=== PATIENT | female | born 1950 | race Caucasian/White ===

== ENCOUNTER 2016-08-09 12:01 | Outpatient (CLI) | payer MEDICARE, OTHER | END 2016-08-09 12:02 | disposition home or self-care (01) | DX: I10 Essential (primary) hypertension (principal); R73.01 Impaired fasting glucose; E03.9 Hypothyroidism, unspecified ==

== ENCOUNTER 2016-09-27 15:19 | Outpatient (CLI) | payer MEDICARE, OTHER | END 2016-09-27 15:20 | disposition home or self-care (01) | DX: Z12.31 Encounter for screening mammogram for malignant neoplasm of breast (principal) ==

== ENCOUNTER 2016-10-13 13:59 | Outpatient (CLI) | payer MEDICARE, OTHER | END 2016-10-13 14:00 | disposition home or self-care (01) | DX: Z12.2 Encounter for screening for malignant neoplasm of respiratory organs (principal); R91.8 Other nonspecific abnormal finding of lung field; Z87.891 Personal history of nicotine dependence ==

== ENCOUNTER 2016-10-27 09:46 | Outpatient (CLI) | payer MEDICARE, OTHER | END 2016-10-27 09:47 | disposition home or self-care (01) | DX: R30.0 Dysuria (principal) ==

== ENCOUNTER 2016-10-31 13:16 | Outpatient (CLI) | payer MEDICARE, OTHER ==
[2016-10-31] MEDS ORDERED: ALBUTEROL NEB 2.5 MG/3 ML INH ONE (13:22)
== END 2016-10-31 13:17 | disposition home or self-care (01) ==
DX: R91.1 Solitary pulmonary nodule (principal); J43.2 Centrilobular emphysema
CPT/HCPCS: 94060; J7613

== ENCOUNTER 2016-11-24 17:18 | Outpatient (CLI) | payer MEDICARE, OTHER | END 2016-11-24 17:19 | disposition home or self-care (01) | DX: Z01.812 Encounter for preprocedural laboratory examination (principal) ==

== ENCOUNTER 2017-05-23 08:00 | Outpatient (CLI) | payer MEDICARE, OTHER | END 2017-05-23 08:01 | disposition home or self-care (01) | LOC: LAB.WCP 08:00 | PROVIDERS: ATTEND Family Medicine | DX: R30.0 Dysuria (principal) | CPT/HCPCS: 87086 ==

== ENCOUNTER 2017-10-17 10:20 | Outpatient (CLI) | payer MEDICARE, OTHER ==
[2017-10-17 11:17] LABS: BASOPHILS # (AUTO) 0.1 10^3/uL (0.0-0.1); BASOPHILS % (AUTO) 0.7 %; EOSINOPHILS # (AUTO) 0.2 10^3/uL (0.0-0.7); EOSINOPHILS % (AUTO) 2.3 %; HGB - HEMOGLOBIN 14.2 g/dL (12.0-16.0); LYMPHOCYTES # (AUTO) 1.8 10^3/uL (1.5-3.5); LYMPHOCYTES % (AUTO) 22.9 %; MEAN CORPUSCULAR HEMOGLOBIN 30.1 pg (27.0-31.0); MEAN CORPUSCULAR HGB CONC 34.4 g/dL (32.0-36.0); MEAN CORPUSCULAR VOLUME 87.4 fL (81.0-99.0); MEAN PLATELET VOLUME 9.3 fL (7.9-10.8); MONOCYTES # (AUTO) 0.6 10^3/uL (0.0-1.0); MONOCYTES % (AUTO) 8.2 %; NEUTROPHILS # (AUTO) 5.2 10^3/uL (1.5-6.6); NEUTROPHILS % (AUTO) 65.9 %; PLT - PLATELET COUNT 197 10^3/uL (130-450); RED BLOOD COUNT 4.72 10^6/uL (4.20-5.40); RED CELL DISTRIBUTION WIDTH 12.9 % (12.0-15.0); WHITE BLOOD COUNT 7.9 x10^3/uL (4.8-10.8)
[2017-10-17 11:20] LABS: BILIRUBIN,URINE NEGATIVE (NEGATIVE); GLUCOSE, URINE (UA) NEGATIVE (NEGATIVE); KETONES,URINE (UA) NEGATIVE (NEGATIVE); LEUKOCYTE ESTERASE, URINE NEGATIVE (NEGATIVE); NITRITE,URINE NEGATIVE (NEGATIVE); OCCULT BLOOD,URINE NEGATIVE (NEGATIVE); PROTEIN,URINE NEGATIVE (NEGATIVE); UROBILINOGEN,URINE 0.2 (NORMAL) E.U./dL (NORMAL)
[2017-10-17 11:27] LABS: CLARITY,URINE HAZY (CLEAR)
[2017-10-17 11:28] LABS: BACTERIA,URINE Many /HPF (None Seen); RBC,URINE 0-5 /HPF (0-5); SQUAMOUS EPITHELIAL CELL,UR RARE Squamous (<= Few)
[2017-10-17 11:30] LABS: ALBUMIN/GLOBULIN RATIO 1.4 (1.0-2.2); ALKALINE PHOSPHATASE 61 IU/L (42-121); ALT ALANINE AMINOTRANSFERASE 25 IU/L (10-60); AST ASPARTATE AMINOTRANSFERASE 26 IU/L (10-42); BILIRUBIN,TOTAL 0.6 mg/dL (0.2-1.0); BUN - BLOOD UREA NITROGEN 22 mg/dL (6-20); CALCIUM 8.7 mg/dL (8.5-10.3); CARBON DIOXIDE - CO2 25 mmol/L (21-32); CHLORIDE 104 mmol/L (101-111); CHOL/HDL RATIO 4.6 (<4.4); CHOLESTEROL 148 mg/dL; CREATININE 0.9 mg/dL (0.4-1.0); GFR - MDRD 63 (>89); GLUCOSE 110 mg/dL (70-100); HDL CHOLESTEROL 32 mg/dL; LDL CHOLESTEROL,CALCULATED 83 mg/dL; LDL/HDL RATIO 2.6 (<4.4); SODIUM 138 mmol/L (135-145); TOTAL PROTEIN 6.8 g/dL (6.7-8.2); VLDL CHOLESTEROL 33 mg/dL
[2017-10-17 11:42] LABS: HB2 TOTAL 15.2 g/dL; HEMOGLOBIN A1C 0.54 g/dL; HEMOGLOBIN A1C % 5.4 % (4.6-6.2)
== END 2017-10-17 10:21 | disposition home or self-care (01) ==
LOC: LAB 10:20
PROVIDERS: ATTEND Family Medicine
DX: I10 Essential (primary) hypertension (principal); E78.5 Hyperlipidemia, unspecified; R73.01 Impaired fasting glucose; E03.9 Hypothyroidism, unspecified
CPT/HCPCS: 36415; 80053; 80061; 81001; 83036; 83721; 84443; 85025

== ENCOUNTER 2017-10-18 12:54 | Outpatient (CLI) | payer MEDICARE, OTHER ==
--- NOTE | 2017-10-19 15:02 | Mammography Report ---
DIGITAL SCREENING MAMMOGRAM: 10/18/2017 CLINICAL INDICATION: A 66-year-old nulliparous patient for screening. COMPARISON: 09/2016, 09/2014, 07/2013, 06/2012, 06/2011, 04/2010. TECHNIQUE: Routine CC and MLO projections were obtained of the breasts. FINDINGS: The breasts again demonstrate heterogeneously dense fibroglandular parenchyma bilaterally. Coarse and punctate, typically benign calcifications are present. No suspicious masses, clustered microcalcifications, or regions of architectural distortion are identified. IMPRESSION: BENIGN FINDINGS. RECOMMENDATION: Routine annual screening unless otherwise clinically indicated. BIRADS CATEGORY 2 - BENIGN FINDINGS. STANDARD QUALIFYING STATEMENTS: 1. This examination was reviewed with the aid of Computer-Aided Detection (CAD). 2. A negative or benign imaging report should not delay biopsy if clinically suspicious findings are present. Consider surgical consultation if warranted. More than 5% of cancers are not identified by imaging. 3. Dense breasts may obscure an underlying neoplasm. TD: 10/19/2017 15:01
== END 2017-10-18 12:55 | disposition home or self-care (01) ==
LOC: DI 12:54
PROVIDERS: ATTEND Family Medicine
DX: Z12.31 Encounter for screening mammogram for malignant neoplasm of breast (principal)
CPT/HCPCS: 77067

== ENCOUNTER 2017-11-16 17:37 | Outpatient (CLI) | payer MEDICARE, OTHER ==
[2017-11-16 18:01] LABS: CALCIUM 9.1 mg/dL (8.5-10.3); CREATININE 1.1 mg/dL (0.4-1.0)
== END 2017-11-16 17:38 | disposition home or self-care (01) ==
LOC: LAB 17:37
PROVIDERS: ATTEND Family Medicine
DX: I10 Essential (primary) hypertension (principal)
CPT/HCPCS: 36415; 80048

== ENCOUNTER 2018-04-14 12:31 | Outpatient (CLI) | payer MEDICARE, OTHER ==
[2018-04-14 13:12] LABS: CALCIUM 9.2 mg/dL (8.5-10.3); CREATININE 1.1 mg/dL (0.4-1.0)
== END 2018-04-14 12:32 | disposition home or self-care (01) ==
LOC: LAB 12:31
PROVIDERS: ATTEND Family Medicine
DX: I10 Essential (primary) hypertension (principal)
CPT/HCPCS: 36415; 80048

== ENCOUNTER 2018-09-30 12:58 | Emergency (ER) | payer MEDICARE, OTHER ==
--- NOTE | 2018-09-30 15:03 | ED Physician Documentation ---
PD HPI URI - Stated complaint Stated Complaint: SOA - Chief complaint Chief Complaint: Resp - History obtained from History obtained from: Patient - History of Present Illness Timing - onset: How many days ago (several days of fever and aches, nausea, and worsening cough and wheezing.) Timing details: Gradual onset, Still present Associated symptoms: Fever, Chills, Nasal congestion, Productive cough, Dyspnea. No: NVD, Bilateral edema Contributing factors: COPD / asthma. No: Sick contact Similar symptoms before: Has not had sx before Recently seen: Not recently seen Review of Systems Constitutional: reports: Fever, Chills, Myalgias Nose: reports: Congestion Throat: denies: Sore throat Cardiac: denies: Chest pain / pressure Respiratory: reports: Dyspnea, Cough, Wheezing Skin: denies: Rash, Lesions Neurologic: reports: Generalized weakness, Headache. denies: Near syncope, Alte red mental status PD PAST MEDICAL HISTORY - Past Medical History Cardiovascular: Hypertension, High cholesterol Respiratory: Emphysema, Sleep apnea, CPAP use Endocrine/Autoimmune: HyPOthyroidism GI: GERD : Incontinence, Kidney stones HEENT: None Psych: None Musculoskeletal: None Derm: None - Past Surgical History General: Colonoscopy Ortho: Other - Present Medications Home Medications: Ambulatory Orders Medication Instructions Recorded Confirmed Aclidinium [place] [Tudorza 1 puffs INH BID 11/18/14 11/18/14 [place]] Ascorbic Acid [Vitamin C] 1 tab PO BID 11/18/14 11/18/14 Aspirin 81 mg PO DAILY 11/18/14 11/18/14 Atenolol 1 tab PO BID 11/18/14 11/18/14 Atorvastatin Calcium [Lipitor] 1 tab PO DAILY 11/18/14 11/18/14 Budesonide/Formoterol Fumarate 2 puffs INH BID 11/18/14 11/18/14 [Symbicort 160-4.5 Mcg Inhaler] Cholecalciferol (Vitamin D3) 1 tab PO DAILY 11/18/14 11/18/14 [Vitamin D] Evening [place] Oil [Evening 1 tab PO DAILY 11/18/14 11/18/14 [place]] Garlic 1 tab PO DAILY 11/18/14 11/18/14 Ginkgo Biloba 1 tab PO DAILY 11/18/14 11/18/14 Krill/[place]-3/Dha/Epa/Lipids 1 tab PO DAILY 11/18/14 11/18/14 [Krill Oil 300 mg Softgel] Levothyroxine [Synthroid] 1 tab PO DAILY 11/18/14 11/18/14 Lisinopril/Hydrochlorothiazide 1 tab PO DAILY 11/18/14 11/18/14 [Lisinopril-Hctz 10-12.5 mg Tab] Multivitamin [Multivitamins] 1 tab PO DAILY 11/18/14 11/18/14 Ubidecarenone [Coenzyme Q10] 1 tab PO DAILY 11/18/14 11/18/14 Vitamin B Complex Vit C No.4 1 tab PO DAILY 11/18/14 11/18/14 [Super B Complex] raNITIdine [Zantac] 1 tab PO BID 11/18/14 11/18/14 Albuterol 2.5 mg INH Q4H PRN #30 neb 09/30/18 Benzonatate [Tessalon Perle] 100 - 200 mg PO TID PRN #30 capsule 09/30/18 Dexamethasone [Decadron] 4 mg PO DAILY #5 tablet 09/30/18 Doxycycline Hyclate 100 mg PO BID #14 capsule 09/30/18 guaiFENesin/CODEINE [Robitussin AC] 10 ml PO Q6H #240 ml 09/30/18 - Allergies Allergies/Adverse Reactions: Allergies Allergy/AdvReac Type Severity Reaction Status Date / Time beclomethasone dipropionate * Allergy Unknown Verified 09/30/18 13:04 [From Qvar] ciprofloxacin [From Cipro] Allergy Unknown Verified 09/30/18 13:04 ciprofloxacin HCl * Allergy Unknown Verified 09/30/18 13:04 [From Cipro] metronidazole Allergy Unknown Verified 09/30/18 13:04 Sulfa (Sulfonamide Allergy Unknown Verified 09/30/18 13:04 Antibiotics) - Social History Does the pt smoke?: No Smoking Status: Never smoker - Immunizations Immunizations are current?: Yes PD ED PE NORMAL - Vitals Vital signs reviewed: Yes - General General: Alert and oriented X 3, No acute distress, Well developed/nourished - HEENT HEENT: Moist mucous membranes, Pharynx benign - Neck Neck: Supple, no meningeal sign, No adenopathy - Cardiac Cardiac: RRR, No murmur - Respiratory Respiratory: No: Clear bilaterally (wheezing diffusely, without coarse sounds peripherally, but bronchial congested sounds. ) - Abdomen Abdomen: Soft, Non tender - Derm Derm: Normal color, Warm and dry - Extremities Extremities: No tenderness to palpate, Normal ROM s pain, No edema, No calf tenderness / cord - Neuro Neuro: Alert and oriented X 3, No motor deficit, Normal speech Results - Vitals Vitals: Oxygen O2 Source Room air - Labs Labs: Laboratory Tests 09/30/18 13:00 Influenza A (Rapid) Negative Influenza B (Rapid) Negative PD MEDICAL DECISION MAKING - ED course Complexity details: considered differential (likely viral URI and exac asthma/COPD, but with that history, consider co-infection. ), d/w patient Departure - Departure Disposition: Home, Self Care Clinical Impression: Acute exacerbation of COPD with asthma Upper respiratory infection Qualifiers: URI type: unspecified URI Qualified Code(s): J06.9 - Acute upper respiratory infection, unspecified Condition: Stable Record reviewed to determine appropriate education?: Yes Instructions: ED URI Viral W Wheezing Follow-Up: Miryam Crabtree DO [Primary Care Provider] - Prescriptions: Albuterol 2.5 mg INH Q4H PRN #30 neb PRN Reason: Wheezing Benzonatate [Tessalon Perle] 100 - 200 mg PO TID PRN #30 capsule PRN Reason: Cough Dexamethasone [Decadron] 4 mg PO DAILY #5 tablet Doxycycline Hyclate 100 mg PO BID #14 capsule guaiFENesin/CODEINE [Robitussin AC] 10 ml PO Q6H #240 ml Comments: Use your nebulizer or inhalers at home 4 times a day for the next several days and extra times if needed. Add Decadron steroid for bronchial inflammation and this should help quite a bit over the next few days. Tessalon if needed for cough. Cough medicine if needed for cough and pains. Recheck if not improving over the next few days. If you do have increasing sputum production or fevers then consider at that point there may be bacterial rather than viral and could add the doxycycline antibiotic. Discharge Date/Time: 09/30/18 16:38
[2018-09-30] MEDS ORDERED: BENZONATATE 100 MG CAPSULE PO STA (15:30)
[2018-09-30] MEDS ORDERED: IPRATROPIUM/ALBUTEROL 3 ML NEB INH STA (15:30)
[2018-09-30] MEDS ORDERED: DEXAMETHASONE 10 MG/ML VIAL PO STA (15:30)
[2018-09-30] MEDS ORDERED: CHERRY SYRUP 10 ML UDC PO ONE (15:55)
[2018-09-30 16:39] VITALS: BP 119/72
== END 2018-09-30 16:38 | disposition home or self-care (01) ==
LOC: ED 12:58
DX: J44.1 Chronic obstructive pulmonary disease with (acute) exacerbation (principal); J06.9 Acute upper respiratory infection, unspecified; I10 Essential (primary) hypertension; E78.00 Pure hypercholesterolemia, unspecified; E03.9 Hypothyroidism, unspecified; Z79.82 Long term (current) use of aspirin
CPT/HCPCS: 87275; 87276; 94640; 99283; A9270

== ENCOUNTER 2019-02-05 11:20 | Outpatient (CLI) | payer MEDICARE, OTHER ==
[2019-02-05 12:23] LABS: BASOPHILS % (AUTO) 0.6 %; EOSINOPHILS # (AUTO) 0.1 10^3/uL (0.0-0.7); EOSINOPHILS % (AUTO) 1.8 %; HGB - HEMOGLOBIN 13.6 g/dL (12.0-16.0); LYMPHOCYTES # (AUTO) 1.4 10^3/uL (1.5-3.5); LYMPHOCYTES % (AUTO) 21.8 %; MEAN CORPUSCULAR HEMOGLOBIN 30.7 pg (27.0-31.0); MEAN CORPUSCULAR HGB CONC 33.5 g/dL (32.0-36.0); MEAN CORPUSCULAR VOLUME 91.6 fL (81.0-99.0); MONOCYTES # (AUTO) 0.5 10^3/uL (0.0-1.0); MONOCYTES % (AUTO) 7.8 %; NEUTROPHILS # (AUTO) 4.4 10^3/uL (1.5-6.6); NEUTROPHILS % (AUTO) 67.7 %; PLT - PLATELET COUNT 194 10^3/uL (130-450); RED BLOOD COUNT 4.43 10^6/uL (4.20-5.40); RED CELL DISTRIBUTION WIDTH 12.6 % (12.0-15.0); WHITE BLOOD COUNT 6.5 x10^3/uL (4.8-10.8)
[2019-02-05 12:38] LABS: ALBUMIN 4.1 g/dL (3.2-5.5); ALBUMIN/GLOBULIN RATIO 1.4 (1.0-2.2); ALKALINE PHOSPHATASE 59 IU/L (42-121); ALT ALANINE AMINOTRANSFERASE 25 IU/L (10-60); AST ASPARTATE AMINOTRANSFERASE 21 IU/L (10-42); BILIRUBIN,TOTAL 0.8 mg/dL (0.2-1.0); BUN - BLOOD UREA NITROGEN 24 mg/dL (6-20); CARBON DIOXIDE - CO2 25 mmol/L (21-32); CHLORIDE 103 mmol/L (101-111); CHOL/HDL RATIO 4.1 (<4.4); CHOLESTEROL 147 mg/dL; CREATININE 1.1 mg/dL (0.4-1.0); GFR - MDRD 49 (>89); GLUCOSE 112 mg/dL (70-100); HDL CHOLESTEROL 36 mg/dL; LDL CHOLESTEROL,CALCULATED 78 mg/dL; LDL/HDL RATIO 2.2 (<4.4); SODIUM 140 mmol/L (135-145); VLDL CHOLESTEROL 33 mg/dL
[2019-02-05 13:21] LABS: HB2 TOTAL 14.2 g/dL; HEMOGLOBIN A1C 0.6 g/dL
== END 2019-02-05 11:21 | disposition home or self-care (01) ==
LOC: LAB 11:20
PROVIDERS: ATTEND Family Medicine
DX: R73.01 Impaired fasting glucose (principal); I10 Essential (primary) hypertension; E78.5 Hyperlipidemia, unspecified; E03.9 Hypothyroidism, unspecified; J44.9 Chronic obstructive pulmonary disease, unspecified
CPT/HCPCS: 80053; 80061; 83036; 83721; 84443; 85025

== ENCOUNTER 2019-06-19 16:06 | Outpatient (CLI) | payer MEDICARE, OTHER ==
--- NOTE | 2019-06-20 10:05 | Mammography Report ---
Reason: ANNUAL MAMMO SELF REF Procedure Date: 06/19/2019 Accession Number: [id number] / [id number] Procedure: WILLIAM - Screening Mammo w/Andrew CPT Code: Final Report FULL RESULT: EXAM: Screening Mammo w/Andrew DATE: 06/19/2019 4:27 PM CLINICAL HISTORY: Screening encounter. History of nulliparity. TECHNIQUE: (B) - Bilateral CC and MLO views were obtained. COMPARISON: 10/18/2017 through 04/03/2010. PARENCHYMAL PATTERN: (D) - The breast(s) demonstrate(s) heterogeneously dense fibroglandular parenchyma. FINDINGS: There are coarse typically benign calcifications. There are no suspicious masses, calcifications, or areas of distortion. IMPRESSION: Benign findings. BI-RADS category 2. RECOMMENDATION: (ANNUAL) - Recommend routine annual screening mammography. BI-RADS CATEGORY: (2) - Benign Findings. STANDARD QUALIFYING STATEMENTS: 1. This examination was not reviewed with the aid of Computer-Aided Detection (CAD). 2. A negative or benign imaging report should not preclude biopsy if clinically suspicious findings are present. 3. Dense breasts may obscure an underlying neoplasm. 4. This examination was reviewed with the aid of 3D breast imaging (tomosynthesis).
== END 2019-06-19 16:07 | disposition home or self-care (01) ==
LOC: DI 16:06
DX: Z12.31 Encounter for screening mammogram for malignant neoplasm of breast (principal)
CPT/HCPCS: 77063; 77067

== ENCOUNTER 2019-06-20 13:26 | Outpatient (CLI) | payer MEDICARE, OTHER ==
--- NOTE | 2019-06-21 10:33 | XRAY Report ---
Reason: THORACIC OUTLET SYNDROME, NECK PAIN Procedure Date: 06/20/2019 Accession Number: [id number] / [id number] Procedure: WCP - Cervical Spine 2 View CPT Code: Final Report FULL RESULT: EXAM: CERVICAL SPINE RADIOGRAPHY EXAM DATE: 06/20/2019 01:48 PM. CLINICAL HISTORY: THORACIC OUTLET SYNDROME, NECK PAIN. Chronic neck pain with left radiculopathy. COMPARISONS: None. TECHNIQUE: 5 views. FINDINGS: Alignment: Minimal right convex cervical spine curvature. No subluxation. Bones: The C1 lateral masses are not well visualized on the open mouth views. The cervical spine is seen down to the cervicothoracic junction on the swimmer's view, although penetration is suboptimal. No fracture or focal bone lesion is identified. Disks: There is disk height loss and endplate osteophyte formation indicating moderate degenerative disk disease at C4-C5, C5-C6, C6-C7. Facets: No significant arthritis. Soft Tissues: Normal. No prevertebral soft tissue swelling. The visualized lung apices are clear. IMPRESSION: Moderate degenerative disk disease at C4-C5, C5-C6, and C6-C7. RADIA
== END 2019-06-20 13:27 | disposition home or self-care (01) ==
LOC: DI.WCP 13:26
PROVIDERS: ATTEND Family Medicine
DX: M50.321 Other cervical disc degeneration at C4-C5 level (principal)
CPT/HCPCS: 72040

== ENCOUNTER 2019-07-03 14:48 | Outpatient (CLI) | payer MEDICARE, OTHER ==
--- NOTE | 2019-07-04 11:56 | DEXA Report ---
Reason: BONE DISORDER Procedure Date: 07/03/2019 Accession Number: [id number] / [id number] Procedure: DEX - Dexa Spine and/or Hip CPT Code: Final Report FULL RESULT: EXAM: Dexa Spine and/or Hip DATE: 07/03/2019 3:21 PM CLINICAL HISTORY: BONE DISORDER TECHNIQUE: Dual energy x-ray absorptiometry (DXA) was performed on a Marakana System. Regions measured are the AP Spine, femoral neck, and if needed forearm. COMPARISON: None. In accordance with the International Society for Clinical Densitometry (ISCD) guidelines, data from previous exams may be reanalyzed using current recommendations and techniques. This is done to allow a more accurate basis for comparison with the current study. FINDINGS: The data for the lumbar spine is as follows: BMD (g/cm/cm) T-SCORE Z-SCORE REGION L1 0.922 -1.7 -0.7 L2 0.979 -1.8 -0.8 L3 0.974 -1.9 -0.8 L4 1.009 -1.6 -0.5 TOTAL 0.973 -1.7 -0.7 NOTE: All evaluable vertebrae are used for classification The data for the hip is as follows: BMD (g/cm/cm) T-SCORE Z-SCORE REGION Neck 0.652 -2.8 -1.5 TOTAL 0.758 -2.0 -1.0 NOTE: The femoral neck or total proximal femur, whichever is lowest, is used for classification. IMPRESSION: THE WHO CLASSIFICATION BASED ON THE INTERNATIONAL REFERENCE STANDARD IS OSTEOPOROSIS, REFERENCE HIP NECK RESULTS. THE FRACTURE RISK IS HIGH . RECOMMENDATION: Patients with diagnosis of osteoporosis or osteopenia should have regular bone mineral density assessment. For those eligible for Medicare, routine testing is allowed once every 2 years. Testing frequency can be increased for patients who have rapidly progressing disease or for those who are receiving medical therapy to restore bone mass. COMMENT: World Health Organization (WHO) definitions for osteoporosis and osteopenia: NORMAL BMD: T-score at -1.0 or higher, fracture risk is low OSTEOPENIA BMD: T-score between -1.0 and -2.5, fracture risk is increased. OSTEOPOROSIS BMD: T-score at -2.5 or lower, fracture risk is high. National Osteoporosis Foundation recommends: 1. Obtain adequate dietary calcium (at least 1200 mg per day) and vitamin D (400-800 international units per day). 2. Participate, as appropriate, in regular weightbearing and muscle-strengthening exercise. 3. Avoid tobacco use and reduce alcohol and caffeine intake. 4. For more detailed information see the website at www.NOF.org.
== END 2019-07-03 14:49 | disposition home or self-care (01) ==
LOC: DI 14:48
PROVIDERS: ATTEND Family Medicine
DX: M81.0 Age-related osteoporosis without current pathological fracture (principal)
CPT/HCPCS: 77080

== ENCOUNTER 2019-10-22 13:21 | Outpatient (CLI) | payer MEDICARE, OTHER | END 2019-10-22 13:22 | disposition home or self-care (01) | LOC: COV 13:21 | PROVIDERS: ATTEND Family Medicine | DX: R05 Cough (principal); R50.9 Fever, unspecified | CPT/HCPCS: 81599 ==

== ENCOUNTER 2020-04-14 08:00 | Outpatient (CLI) | payer MEDICARE, OTHER ==
[2020-04-14 19:13] LABS: BASOPHILS % (AUTO) 0.4 %; EOSINOPHILS # (AUTO) 0.1 10^3/uL (0.0-0.7); EOSINOPHILS % (AUTO) 1.3 %; HGB - HEMOGLOBIN 14.4 g/dL (12.0-16.0); LYMPHOCYTES # (AUTO) 1.8 10^3/uL (1.5-3.5); LYMPHOCYTES % (AUTO) 23.6 %; MEAN CORPUSCULAR HEMOGLOBIN 29.9 pg (27.0-31.0); MEAN CORPUSCULAR HGB CONC 32.2 g/dL (32.0-36.0); MEAN CORPUSCULAR VOLUME 92.7 fL (81.0-99.0); MEAN PLATELET VOLUME 12.2 fL (7.9-10.8); MONOCYTES # (AUTO) 0.5 10^3/uL (0.0-1.0); MONOCYTES % (AUTO) 6.3 %; NEUTROPHILS # (AUTO) 5.2 10^3/uL (1.5-6.6); PLT - PLATELET COUNT 197 10^3/uL (130-450); RED BLOOD COUNT 4.82 10^6/uL (4.20-5.40); RED CELL DISTRIBUTION WIDTH 12.4 % (12.0-15.0); WHITE BLOOD COUNT 7.7 x10^3/uL (4.8-10.8)
[2020-04-14 19:38] LABS: ALBUMIN 4.2 g/dL (3.2-5.5); ALBUMIN/GLOBULIN RATIO 1.6 (1.0-2.2); ALKALINE PHOSPHATASE 53 IU/L (42-121); ALT ALANINE AMINOTRANSFERASE 26 IU/L (10-60); AST ASPARTATE AMINOTRANSFERASE 23 IU/L (10-42); BILIRUBIN,TOTAL 0.7 mg/dL (0.2-1.0); BUN - BLOOD UREA NITROGEN 20 mg/dL (6-20); CALCIUM 8.9 mg/dL (8.5-10.3); CARBON DIOXIDE - CO2 23 mmol/L (21-32); CHLORIDE 104 mmol/L (101-111); CHOL/HDL RATIO 4.3 (<4.4); CHOLESTEROL 159 mg/dL; GLUCOSE 101 mg/dL (70-100); HDL CHOLESTEROL 37 mg/dL; LDL CHOLESTEROL,CALCULATED 81 mg/dL; LDL/HDL RATIO 2.2 (<4.4); SODIUM 137 mmol/L (135-145); TOTAL PROTEIN 6.9 g/dL (6.7-8.2); VLDL CHOLESTEROL 41 mg/dL
[2020-04-14 19:48] LABS: HEMOGLOBIN A1c% 5.3 % (4.27-6.07)
== END 2020-04-14 23:59 | disposition home or self-care (01) ==
LOC: LAB.WCP 08:00
PROVIDERS: ATTEND Family Medicine
DX: I10 Essential (primary) hypertension (principal); E78.5 Hyperlipidemia, unspecified; R73.01 Impaired fasting glucose; E03.9 Hypothyroidism, unspecified
CPT/HCPCS: 36415; 80053; 80061; 83036; 83721; 84443; 85025

== ENCOUNTER 2020-09-24 22:40 | Outpatient (CLI) | payer MEDICARE, OTHER | END 2020-09-24 22:41 | disposition critical access hospital (66) | LOC: EMS 22:40 | PROVIDERS: ATTEND Emergency Medicine | DX: M25.561 Pain in right knee (principal); M79.661 Pain in right lower leg; M79.621 Pain in right upper arm | CPT/HCPCS: A0425; A0427 ==

== ENCOUNTER 2020-09-24 22:52 | Inpatient (IN) | payer MEDICARE, OTHER ==
[2020-09-24] MEDS ORDERED: HYDROmorphone 1 MG/ML CARPUJECT IVP STA (23:33)
[2020-09-24] MEDS ORDERED: ONDANSETRON 4 MG/2 ML VIAL IVP STA (23:33)
--- NOTE | 2020-09-25 01:58 | ED Physician Documentation ---
PD HPI LOWER EXT INJURY - Stated complaint Stated Complaint: GLF, RT SIDE PAIN, RIGHT KNEE PAIN - Chief complaint Chief Complaint: Trauma Ext - History obtained from History obtained from: Patient - History of Present Illness PD HPI LOW EXT INJURY LOCATION: Right, Knee, Lower leg Type of injury: Fall Where injury occurred: Street Timing - onset: Today Timing - details: Abrupt onset, Still present Improved by: Rest, Immobilization Worsened by: Moving, Palpating Associated symptoms: Swelling. No: Weakness, Numbness Contributing factors: No: Anticoagulated Similar symptoms before: Has not had sx before Recently seen: Not recently seen - Additional information Additional information: Previously well 69-year-old female got home from work today she was being driven home in her one-ton van. When she went to step out of the van she fell onto her right side. She states that the van is elevated a little bit and when she fell onto her right side she complains of pain in her right leg and in her right arm. She states the pain is right below the shoulder and she is in a sling she was given some fentanyl in route to the hospital. Her leg was put into a splint in the position she was found which with which is with her knee slightly flexed. She has most of her pain right below the knee. She has not otherwise been ill recently. Review of Systems Constitutional: denies: Fever Eyes: denies: Decreased vision Ears: denies: Ear pain Nose: denies: Congestion Throat: denies: Sore throat Cardiac: denies: Chest pain / pressure, Palpitations Respiratory: denies: Dyspnea, Cough GI: denies: Abdominal Pain, Nausea, Vomiting, Constipation, Diarrhea : denies: Dysuria, Frequency Skin: denies: Rash Musculoskeletal: reports: Extremity pain, Extremity swelling. denies: Neck pain, Back pain Neurologic: denies: Generalized weakness, Focal weakness, Numbness PD PAST MEDICAL HISTORY - Past Medical History Past Medical History: Yes Cardiovascular: Hypertension, High cholesterol Respiratory: Emphysema, Sleep apnea, CPAP use Endocrine/Autoimmune: HyPOthyroidism GI: GERD : Incontinence, Kidney stones HEENT: None Psych: None Musculoskeletal: None Derm: None - Past Surgical History General: Colonoscopy Ortho: Other - Present Medications Home Medications: Ambulatory Orders Medication Instructions Recorded Confirmed Ascorbic Acid [Vitamin C] 1 tab PO BID 11/18/14 11/18/14 Aspirin 81 mg PO DAILY 11/18/14 11/18/14 Atenolol 1 tab PO BID 11/18/14 11/18/14 Atorvastatin Calcium [Lipitor] 1 tab PO DAILY 11/18/14 11/18/14 Budesonide/Formoterol Fumarate 2 puffs INH BID 11/18/14 11/18/14 [Symbicort 160-4.5 Mcg Inhaler] Cholecalciferol (Vitamin D3) 1 tab PO BID 11/18/14 11/18/14 [Vitamin D] Evening [place] Oil [Evening 1 tab PO DAILY 11/18/14 11/18/14 [place]] Garlic 1 tab PO DAILY 11/18/14 11/18/14 Ginkgo Biloba 1 tab PO DAILY 11/18/14 11/18/14 Krill/[place]-3/Dha/Epa/Lipids 1 tab PO DAILY 11/18/14 11/18/14 [Krill Oil 300 mg Softgel] Levothyroxine [Synthroid] 1 tab PO DAILY 11/18/14 11/18/14 Multivitamin [Multivitamins] 1 tab PO DAILY 11/18/14 11/18/14 Ubidecarenone [Coenzyme Q10] 1 tab PO DAILY 11/18/14 11/18/14 Vitamin B Complex Vit C No.4 1 tab PO DAILY 11/18/14 11/18/14 [Super B Complex] Alendronate [Fosamax] 70 mg PO 09/24/20 Ipratropium/Albuterol [Combivent 1 puffs INH QID 09/24/20 09/24/20 Respimat] Irbesartan/Hydrochlorothiazide 1 tab PO DAILY 09/24/20 09/24/20 [Avalide 300-12.5 mg Tablet] Magnesium Chloride [Slow-Mag] 1 tab PO DAILY 09/24/20 09/24/20 - Allergies Allergies/Adverse Reactions: Allergies Allergy/AdvReac Type Severity Reaction Status Date / Time beclomethasone dipropionate * Allergy Unknown Verified 09/30/18 13:04 [From Qvar] ciprofloxacin [From Cipro] Allergy Unknown Verified 09/30/18 13:04 ciprofloxacin HCl * Allergy Unknown Verified 09/30/18 13:04 [From Cipro] metronidazole Allergy Unknown Verified 09/30/18 13:04 Sulfa (Sulfonamide Allergy Unknown Verified 09/30/18 13:04 Antibiotics) - Social History Does the pt smoke?: No Smoking Status: Never smoker Does the pt drink ETOH?: Yes Does the pt have substance abuse?: No - Immunizations Immunizations are current?: Yes PD ED PE NORMAL - Vitals Vital signs reviewed: Yes (Hypertensive) - General General: Alert and oriented X 3, No acute distress, Well developed/nourished - HEENT HEENT: Atraumatic, PERRL, EOMI - Neck Neck: Supple, no meningeal sign, No bony TTP - Cardiac Cardiac: RRR, No murmur - Respiratory Respiratory: No respiratory distress, Clear bilaterally - Abdomen Abdomen: Normal bowel sounds, Soft, Non tender, Non distended, No organomegaly - Back Back: No CVA TTP, No spinal TTP - Derm Derm: Normal color, Warm and dry, No rash - Extremities Extremities: Other (There is mild point tenderness to the proximal humerus I am able to move the shoulder and range of motion there is no pain to the elbow to flexion extension supination pronation and similarly to the wrist. The right knee is examined and there is marked tenderness and swelling right below the knee. ) - Neuro Neuro: Alert and oriented X 3, town justice 2-12 intact, No motor deficit, No sensory deficit, Normal speech Eye Opening: Spontaneous Motor: Obeys Commands Verbal: Oriented GCS Score: 15 - Psych Psych: Normal mood, Normal affect Results - Vitals Vitals: Vital Signs - 24 hr 09/24/20 09/25/20 09/25/20 23:03 01:07 03:00 Temperature 36.7 C 36.8 C 36.6 C Heart Rate 70 67 67 Respiratory 16 14 18 Rate Blood Pressure 155/97 H 133/82 H 139/85 H O2 Saturation 97 100 94 Oxygen O2 Source Room air - Labs Labs: Laboratory Tests 09/25/20 09/25/20 09/25/20 02:40 02:40 02:42 WBC 16.7 H RBC 4.58 Hgb 14.4 Hct 42.8 MCV 93.4 MCH 31.4 H MCHC 33.6 RDW 12.5 Plt Count 186 MPV 11.3 H Neut # (Auto) 14.5 H Lymph # (Auto) 1.3 L Saline # (Auto) 0.8 Eos # (Auto) 0.0 Baso # (Auto) 0.0 Absolute Nucleated RBC 0.00 Nucleated RBC % 0.0 Sodium 145 Potassium 4.0 Chloride 102 Carbon Dioxide 27 Anion Gap 16.0 H BUN 19 Creatinine 0.9 Estimated GFR (MDRD) 62 L Glucose 149 H Calcium 9.3 Total Bilirubin 0.7 AST 20 ALT 20 Alkaline Phosphatase 62 Total Protein 6.7 Albumin 4.1 Globulin 2.6 Albumin/Globulin Ratio 1.6 Lipase 25 Nasal Adenovirus (PCR) NOT DETECTED Nasal B. parapertussis DNA (PCR) NOT DETECTED Nasal Coronavir 229E PCR NOT DETECTED Nasal Coronavir HKU1 PCR NOT DETECTED Nasal Coronavir NL63 PCR NOT DETECTED Nasal Coronavir OC43 PCR NOT DETECTED Nasal Enterovir/Rhinovir PCR NOT DETECTED Nasal Influenza B PCR NOT DETECTED Nasal Influenza A PCR NOT DETECTED Nasal Parainfluen 1 PCR NOT DETECTED Nasal Parainfluen 2 PCR NOT DETECTED Nasal Parainfluen 3 PCR NOT DETECTED Nasal Parainfluen 4 PCR NOT DETECTED Nasal RSV (PCR) NOT DETECTED Nasal B.pertussis DNA PCR NOT DETECTED Nasal C.pneumoniae (PCR) NOT DETECTED Vimal Human Metapneumo PCR NOT DETECTED Nasal M.pneumoniae (PCR) NOT DETECTED Nasal SARS-CoV-2 (PCR) NOT DETECTED - Rads (name of study) Right arm Radiology: Prelim report reviewed (Impression: No acute fracture or dislocation.), EMP read indepedently, See rad report right knee Radiology: Prelim report reviewed (Impression: Acute fractures through the proximal tibia and fibula as described. Genu valgus without dislocation.), EMP read indepedently, See rad report Tib-fib Radiology: Prelim report reviewed (Impression: 1. Acute fractures of the proximal tibia and fibula as described. Gentle valgus without dislocation. No fracture through the more distal tibia or fibula. Ankle intact.), EMP read indepedently, See rad report PD MEDICAL DECISION MAKING - ED course Complexity details: reviewed old records, reviewed results, re-evaluated patient, considered differential, d/w patient, d/w retirement sales consultant (Effie mar nds CT of knee, posterior splint, admission to medicine and he will consult in am. ) ED course: 69-year-old female who is fallen out of her van onto her right side has a tibial plateau fracture on the right side. She has a comminuted fracture that appears complex and the orthopedic surgeon is consulted by telephone he recommends that we place the patient to the hospital for for surgical repair. Dr. Hoa Wright the hospitalist is consulted in the case he recommends we obtain some laboratory values on the patient and he will admit the patient to the hospital.During Covid pandemic we ordered a respiratory PCR to rule out the possibility of COVID-19 as a comorbidity in the patient's hospital stay. Departure - Departure Disposition: 66 [facility] DC/Xfer Clinical Impression: Tibia/fibula fracture Qualifiers: Encounter type: initial encounter Fracture type: closed Laterality: right Qualified Code(s): S82.201A - Unspecified fracture of shaft of right tibia, initial encounter for closed fracture Tibial plateau fracture, right Qualifiers: Encounter type: initial encounter Fracture type: closed Qualified Code(s): S82.141A - Displaced bicondylar fracture of right tibia, initial encounter for closed fracture Condition: Stable Discharge Date/Time: 09/25/20 03:57
--- NOTE | 2020-09-25 02:44 | HISTORY & PHYSICAL EXAMINATION ---
Chief Complaint - Chief Complaint Chief Complaint: right knee pain History of Present Illness - Admitted From Admitted From:: [facility] ED - History Obtained From Records Reviewed: yes History obtained from: patient - History of Present Illness HPI Comment/Other: Patient is a 69-year-old female with medical history significant for hypertension, hyperlipidemia, hypothyroidism, obstructive sleep apnea on CPAP and emphysema who presented to the ED with right knee pain after a mechanical fall. She has a very high van and was trying to get out of the van when she slipped on the step of the van and landed on her right knee. The point of impact was with the edge of a cement slab. This happened around 11 PM on 09/24/2020. She did not hit her head or blackout. It was a witnessed fall, witnessed by her brother. At bedside she appears to be in moderate to severe pain with intermittent muscle cramping which seem to worsen her pain. She denies chest pain, dyspnea, abdominal pain, nausea, vomiting, fever or chills. Work-up in the ED included a CT of the right lower extremity which showed tibial plateau fracture. Dr. Swann with orthopedics was contacted and was agreeable to see the patient in consult. History - Past Medical History Cardiovascular: reports: Hypertension, High cholesterol Respiratory: reports: Emphysema, Sleep apnea, CPAP use Endocrine/Autoimmune: reports: HyPOthyroidism GI: reports: GERD : reports: Incontinence, Kidney stones HEENT: reports: None Psych: reports: None Musculoskeletal: reports: None Derm: reports: None MRSA Hx?: No - Past Surgical History General: reports: Colonoscopy Ortho: reports: Other Other past surgical history: left upper lung lobe biopsy - Family & Social History Family History Comment/Other: Her mother had significant coronary artery disease and diabetes. She had a brother who from sarcoma. Another brother has obstructive sleep apnea. Living arrangement: At home Living Situation: Alone Social History Notes: She lives in her house alone and is normally independent of activities of daily living. She denies using tobacco products or recreational substances. She drinks occasionally. - POLST Patient has POLST: No POLST Status: Full Code Meds/Allgy - Home Medications Home Medications: Ambulatory Orders Medication Instructions Recorded Confirmed Ascorbic Acid [Vitamin C] 1,000 mg PO BID 11/18/14 09/25/20 Aspirin 81 mg PO DAILY 11/18/14 09/25/20 Multivitamin [Multivitamins] 1 tab PO DAILY 11/18/14 09/25/20 Ubidecarenone [Coenzyme Q10] 1 tab PO DAILY 11/18/14 09/25/20 Vitamin B Complex Vit C No.4 1 tab PO DAILY 11/18/14 09/25/20 [Super B Complex] Alendronate [Fosamax] 70 mg PO .ONE PER WEEK 09/24/20 09/25/20 Ipratropium/Albuterol [Combivent 1 puffs INH QID 09/24/20 09/25/20 Respimat] Irbesartan/Hydrochlorothiazide 1 tab PO DAILY 09/24/20 09/25/20 [Avalide 300-12.5 mg Tablet] Magnesium Chloride [Slow-Mag] 1 tab PO DAILY 09/24/20 09/25/20 Atenolol [Tenormin] 50 mg PO BID 09/25/20 09/25/20 Atorvastatin [Lipitor] 20 mg PO DAILY 09/25/20 09/25/20 Levothyroxine [Synthroid] 88 mcg PO DAILY 09/25/20 09/25/20 - Allergies Allergies/Adverse Reactions: Allergies Allergy/AdvReac Type Severity Reaction Status Date / Time beclomethasone dipropionate * Allergy Unknown Verified 09/30/18 13:04 [From Qvar] ciprofloxacin [From Cipro] Allergy Unknown Verified 09/30/18 13:04 ciprofloxacin HCl * Allergy Unknown Verified 09/30/18 13:04 [From Cipro] metronidazole Allergy Unknown Verified 09/30/18 13:04 Sulfa (Sulfonamide Allergy Unknown Verified 09/30/18 13:04 Antibiotics) Review of Systems - Constitutional Constitutional: denies: Fatigue, Fever, Chills - Eyes Eyes: denies: Pain - Ears, Nose & Throat Ears, Nose & Throat: denies: Ear pain, Sore throat - Cardiovascular Cariovascular: denies: Irregular heart rate, Palpitations, Chest pain, Edema, Lightheadedness, Syncope - Respiratory Respiratory: denies: Cough, Sputum production, Wheezing, Snoring, SOB at rest, SOB with exertion - Gastrointestinal Gastrointestinal: denies: Abdominal pain, Abdominal distention, Constipation, Diarrhea, Nausea, Vomiting, Coffee grounds emesis, Reflux/heartburn - Genitourinary Genitourinary: denies: Dysuria, Frequency, Urgency, Hematuria - Musculoskeletal Musculoskeletal: reports: Limited range of motion. denies: Muscle pain, Back pain, Muscle aches - Integumentary Integumentary: denies: Rash, Pruritis, Lesions, Dryness - Neurological Neurological: denies: Focal weakness, Headache, Dizziness - Psychiatric Psychiatric: denies: Depression, Anxiety - Endocrine Endocrine: denies: Polyuria, Polydypsia - Hematologic/Lymphatic Hematologic/Lymphatic: denies: Anemia Prior Level of Functionality: She is independent of activities of daily living Exam - Vital Signs Vital Signs: Vital Signs x48h Temp Pulse Resp BP Pulse Ox 09/25/20 01:07 36.8 C 67 14 133/82 H 100 09/24/20 23:03 36.7 C 70 16 155/97 H 97 - Physical Exam General Appearance: positive: Alert, Moderate distress, Severe distress Eyes Bilateral: positive: PERRL, EOMI ENT: positive: No signs of dehydration Neck: positive: No JVD, Trachea midline Respiratory: positive: Chest non-tender, No respiratory distress, Breath sounds nml. negative: Wheezes, Rales, Rhonchi Cardiovascular: positive: Regular rate & rhythm, No murmur Abdomen: positive: Non-tender, No organomegaly, Nml bowel sounds, No distention. negative: Tenderness, Guarding, Rebound Back: positive: Nml inspection Skin: positive: Color nml, No rash, Warm, Dry Extremities: positive: No pedal edema, Other (Pain in right knee) Neurologic/Psychiatric: positive: Oriented x3, Mood/affect nml Conclusion/Plan - Problem List (1) Tibial plateau fracture, right Conclusion/Plan: Patient made n.p.o. except for meds, sips and ice chips. Pain management weight Tylenol, Gypsy and oral Dilaudid as needed. Flexeril 10 mg 3 times daily as needed for muscle relaxant. Dr. Swann with orthopedic surgery was contacted by the ED physician and was agreeable to see the patient in consult. We will place official consult for orthopedic surgery. Continue patient's Fosamax after surgery. Qualifiers: Encounter type: initial encounter Fracture type: closed Qualified Code(s): S82.141A - Displaced bicondylar fracture of right tibia, initial encounter for closed fracture (2) Pre-op evaluation Conclusion/Plan: According to NSQIP Surgical risk calculator, patient's risk for serious complication and any complication 5.0% and 5.8% respectively. This is slightly higher than the average risk of 3.7 and 4.4% respectively. Predicted length of hospital stay is 2 days. Patient is currently medically optimized for surgery pending 2D echo. (3) Hypertension Conclusion/Plan: On Atenolol and Losartan/HCTZ. Will resume once verified. If needed will order as needed medication. (4) Hyperlipidemia Conclusion/Plan: On atorvastatin 20 mg p.o. daily. Will resume once verified. (5) Hypothyroidism Conclusion/Plan: On Synthroid 88 mcg p.o. daily. (6) Obstructive sleep apnea on CPAP Conclusion/Plan: Patient may use home CPAP. (7) Leukocytosis Conclusion/Plan: WBC 16.7. 2/2 UTI On rocephin (8) UTI (urinary tract infection) Conclusion/Plan: On rocephin Urine cultures pending - Lab Results Fish Bones: 09/25/20 02:40 09/25/20 02:40 Core Measures - Anticipated LOS I expect patient to be DC'd or transferred within 96 hours.: Yes - DVT/VTE - Prophylaxis VTE/DVT Device ordered at admit?: Yes VTE/DVT Prophylaxis med ordered at admit?: Yes
[2020-09-25 02:45] LABS: BASOPHILS % (AUTO) 0.2 %; EOSINOPHILS % (AUTO) 0.1 %; HCT - HEMATOCRIT 42.8 % (37.0-47.0); HGB - HEMOGLOBIN 14.4 g/dL (12.0-16.0); LYMPHOCYTES # (AUTO) 1.3 10^3/uL (1.5-3.5); LYMPHOCYTES % (AUTO) 7.5 %; MEAN CORPUSCULAR HEMOGLOBIN 31.4 pg (27.0-31.0); MEAN CORPUSCULAR HGB CONC 33.6 g/dL (32.0-36.0); MEAN CORPUSCULAR VOLUME 93.4 fL (81.0-99.0); MEAN PLATELET VOLUME 11.3 fL (7.9-10.8); MONOCYTES # (AUTO) 0.8 10^3/uL (0.0-1.0); MONOCYTES % (AUTO) 4.7 %; NEUTROPHILS # (AUTO) 14.5 10^3/uL (1.5-6.6); NEUTROPHILS % (AUTO) 87.1 %; PLT - PLATELET COUNT 186 10^3/uL (130-450); RED BLOOD COUNT 4.58 10^6/uL (4.20-5.40); RED CELL DISTRIBUTION WIDTH 12.5 % (12.0-15.0); WHITE BLOOD COUNT 16.7 x10^3/uL (4.8-10.8)
[2020-09-25 02:59] LABS: ALBUMIN 4.1 g/dL (3.2-5.5); ALBUMIN/GLOBULIN RATIO 1.6 (1.0-2.2); BILIRUBIN,TOTAL 0.7 mg/dL (0.2-1.0); CALCIUM 9.3 mg/dL (8.5-10.3); CREATININE 0.9 mg/dL (0.4-1.0); TOTAL PROTEIN 6.7 g/dL (6.7-8.2)
[2020-09-25] MEDS ORDERED: ONDANSETRON 4 MG/2 ML VIAL IVP PRN (03:03)
[2020-09-25] MEDS ORDERED: SODIUM CHLORIDE FLUSH 0.9% 10 ML SYRINGE IVP PRN (03:03)
[2020-09-25] MEDS ORDERED: ACETAMINOPHEN 325 MG TABLET PO PRN (03:03)
[2020-09-25] MEDS ORDERED: CYCLOBENZAPRINE 10 MG TABLET PO PRN (03:07)
[2020-09-25 03:40] LABS: B. PARAPERTUSSIS- RESP PCR PAN NOT DETECTED; B. PERTUSSIS- RESP PCR PANEL NOT DETECTED; C. PNEUMONIAE- RESP PCR PANEL NOT DETECTED; CORONAVIRUS 229E-RESP PCR NOT DETECTED; CORONAVIRUS HKU1-RESP PCR NOT DETECTED; CORONAVIRUS NL63-RESP PCR NOT DETECTED; CORONAVIRUS OC43-RESP PCR NOT DETECTED; HUMAN METAPNEUMOVIRUS NOT DETECTED; INFLUENZA A- RESP PCR PANEL NOT DETECTED; INFLUENZA B - RESP PCR PANEL NOT DETECTED; M. PNEUMONIAE- RESP PCR PANEL NOT DETECTED; PARAINFLUENZA VIRUS 1 NOT DETECTED; PARAINFLUENZA VIRUS 2 NOT DETECTED; PARAINFLUENZA VIRUS 3 NOT DETECTED; PARAINFLUENZA VIRUS 4 NOT DETECTED; RHINOVIRUS/ENTEROVIRUS NOT DETECTED; RSV- RESP PCR PANEL NOT DETECTED; SARS-CoV-2 -RESP PCR PANEL NOT DETECTED
[2020-09-25 03:54] LABS: BILIRUBIN,URINE NEGATIVE (NEGATIVE); GLUCOSE, URINE (UA) NEGATIVE (NEGATIVE); KETONES,URINE (UA) NEGATIVE (NEGATIVE); LEUKOCYTE ESTERASE, URINE MODERATE (NEGATIVE); NITRITE,URINE POSITIVE (NEGATIVE); OCCULT BLOOD,URINE NEGATIVE (NEGATIVE); PH,URINE 6.5 PH (5.0-7.5); PROTEIN,URINE NEGATIVE (NEGATIVE); UROBILINOGEN,URINE 0.2 (NORMAL) E.U./dL (NORMAL)
[2020-09-25 03:55] LABS: CLARITY,URINE HAZY (CLEAR)
[2020-09-25] MEDS: HYDROmorphone 0.5 MG/0.5 ML SYRINGE IVP PRN ×3 (03:55→21:39)
[2020-09-25] MEDS: SODIUM CHLORIDE 0.9% 1,000 ML IV SCH ×2 (03:56→16:41)
[2020-09-25 04:00] LABS: BACTERIA,URINE Many /HPF (None Seen); RBC,URINE 0-5 /HPF (0-5); SQUAMOUS EPITHELIAL CELL,UR FEW Squamous (<= Few); WBC,URINE >25 /HPF (0-5)
[2020-09-25] MEDS: PANTOPRAZOLE 40 MG TABLET PO SCH (06:25)
[2020-09-25] MEDS ORDERED: ALBUTEROL NEB 2.5 MG/3 ML INH PRN (08:37)
--- NOTE | 2020-09-25 08:44 | XRAY Report ---
PROCEDURE: Chest 1 View X-Ray INDICATIONS: pre-op eval TECHNIQUE: One view of the chest was acquired. COMPARISON: Chest CT 04/18/2015 FINDINGS: Surgical changes and devices: None. Lungs and pleura: No pleural effusions or pneumothorax. Lungs are abnormal with chronic appearing i nterstitial prominence and large lung volumes.. Mediastinum: Mediastinal contours appear normal. Heart size is normal. Bones and chest wall: No suspicious bony lesions. Overlying soft tissues appear unremarkable. IMPRESSION: Large lung volumes, mild interstitial prominence, suspect prior smoking history and COPD. However, a lateral view was not available to most accurately assess for flattening of the diaphragms. Please cor relate clinically to determine whether obtaining a lateral view of the chest would be of value. Reviewed by: Osmin Bates MD on 09/25/2020 8:43 AM PST Approved by: Osmin Bates MD on 09/25/2020 8:43 AM PST Station ID: [id number]
--- NOTE | 2020-09-25 08:55 | CT Report ---
PROCEDURE: LOWER EXTREMITY WO - RT INDICATIONS: proximal tib fx TECHNIQUE: Noncontrast 3 mm axial sections acquired of the knee region to extend inferiorly into the proximal ti el, with coronal and sagittal reformats. COMPARISON: None. FINDINGS: Image quality: Excellent. Bones: There is a severe tibial plateau fracture on the right, with involvement of both the medial a nd lateral compartments, and with intra-articular extension at multiple sites, with the severity of i nvolvement most pronounced laterally. A moderately comminuted proximal fibular impaction fracture is centrally positioned, and the depresse d tibial plateau fracture fragment is approximately 2.4 cm deep to anatomic position. More inferiorly along the tibial diaphysis there is a additional proximal diaphyseal fracture, which is diagonal and displaced by approximately a half shaft width posteriorly at the lower fracture margin. More inferio rly trauma to the distal tibia and fibula at the ankle joint level is not seen. Soft tissues: No hematoma identified. IMPRESSION: Severe impacted tibial plateau fractures are present both laterally and medially, most pronounced lat erally. Additional diagonal proximal diaphyseal fracture is seen near the junction of the upper and m iddle thirds of the diaphysis. There is an impacted comminuted fibular head fracture also, and the ma ximal depression of the lateral tibial plateau fracture fragment into the medullary spaces almost 2.5 cm. Orthopedic surgical intervention is anticipated. Reviewed by: Osmin Bates MD on 09/25/2020 8:54 AM PST Approved by: Osmin Bates MD on 09/25/2020 8:54 AM PST Station ID: [id number]
[2020-09-25] MEDS ORDERED: ENOXAPARIN 40 MG/0.4 ML SYRINGE SUBQ SCH (09:00)
--- NOTE | 2020-09-25 09:00 | XRAY Report ---
PROCEDURE: Tib/Fib RT INDICATIONS: fall prox tib/fib fx TECHNIQUE: 2 views of the tibia and fibula were acquired. COMPARISON: CT scan same day. FINDINGS: Bones: No dislocations. No suspicious bony lesions. There is a complex comminuted tibial plateau f racture on the right with the predominant fracture planes extending through the lateral tibial platea u but components of fracture extending into the medial tibial plateau. There also is a diagonal fract ure involving the proximal diaphysis of the tibia, at approximately the junction of the middle and buchanan perior thirds. This is displaced posteriorly approximately a half shaft width. At the fibula there is an impacted comminuted centimeter fractures at the fibular head. No distal diaphyseal or ankle joint level trauma seen. Soft tissues: No suspicious soft tissue calcifications or masses. IMPRESSION: Please refer to the dedicated CT scan for high-resolution tibial plateau, which is severe, and most p ronounced at the lateral tibial plateau but also extending into the medial plateau. At the lateral pl ateau fracture with a component of the articular surface is impacted inferiorly into the fracture miguel gavin, structures from anatomic alignment, and depressed by approximately 2 cm. Fibular head impaction fracture with comminution. Diagonal proximal femoral diaphyseal fracture separate from the tibial plateau fracture planes. Reviewed by: Osmin Bates MD on 09/25/2020 8:59 AM PST Approved by: Osmin Bates MD on 09/25/2020 8:59 AM PST Station ID: [id number]
--- NOTE | 2020-09-25 09:14 | XRAY Report ---
PROCEDURE: Humerus RT INDICATIONS: fall mid shaft pain TECHNIQUE: 2 views of the humerus were acquired. COMPARISON: None FINDINGS: Bones: No fractures or dislocations. No suspicious bony lesions. Soft tissues: No suspicious soft tissue calcifications. IMPRESSION: No trauma found. Reviewed by: Osmin Bates MD on 09/25/2020 9:12 AM [facility] Approved by: Osmin Bates MD on 09/25/2020 9:12 AM [facility] Station ID: [id number]
[2020-09-25 09:16] LABS: INR 1.1 (0.8-1.2); PT - PROTHROMBIN TIME 12.6 secs (9.9-12.6)
--- NOTE | 2020-09-25 09:17 | XRAY Report ---
PROCEDURE: Knee 4 View RT INDICATIONS: fall proximal tibia pain TECHNIQUE: 4 views of the right knee(s) were acquired. COMPARISON: Prior CT through the right lower extremity to include the knee to the ankle.. FINDINGS: Bones: No dislocations. No suspicious bony lesions. There is a complex comminuted severe tibial pl ateau fracture with impaction and displacement of the fracture planes, with a fracture more pronounce d at the lateral tibial plateau that the medial plateau. The lateral femoral condyle is impacted infe riorly against the fracture complex, with what appears to be displacement inferiorly by a significant portion of the articular surface of the lateral tibial plateau by approximately 2 cm. There also is a fracture that is comminuted involving the fibular head, and a second area of fracture involving the proximal tibia at the proximal diaphysis separate from the tibial plateau fracture, di agonally and mildly displaced dorsally at the fracture plane. Soft tissues: No joint effusion. No suspicious soft tissue calcifications. IMPRESSION: Complex comminution and displacement abnormalities are present associated with the tibia l plateau fracture and to a lesser degree the fibular head impaction fracture. An additional fracture is seen at the proximal tibial diaphysis just above the expected position of the junction between th e middle and upper thirds of the diaphysis. A patellar fracture is not seen. Reviewed by: Osmin Bates MD on 09/25/2020 9:15 AM PST Approved by: Osmin Bates MD on 09/25/2020 9:15 AM PST Station ID: [id number]
[2020-09-25] MEDS: cefTRIAXone 1 GM in SODIUM CHLORIDE 0.9% MINIBAG 100 ML IV SCH (10:19)
[2020-09-25] MEDS: SODIUM CHLORIDE FLUSH 0.9% 10 ML SYRINGE IVP SCH ×2 (10:20→16:40)
[2020-09-25] MEDS: HYDROcod/ACETAM 5/325 MG TABLET PO PRN ×2 (10:20→16:14)
--- NOTE | 2020-09-25 11:11 | PHARMACY PROGRESS NOTE ---
- Best Possible Medication History Admit Date and Time: 09/25/20 0303 Processed by: Pharmacy Medication History completed: Yes Patient Interview: Completed Secondary Source(s): Physician records, Pharmacy records, Insurance records (PATIENT INTERVIEWED BY YARN COMBER. JAMEE ABLE TO CONFIRM HOME MEDICATIONS ) As the person ultimately responsible for medication therapy, providers are able to order a medication from an existing home medication list in [facility] via the "Reconcile Routine" prior to Confirmation of that medication by developer support engineer. Such practice is discouraged except when the physician, in their clinical judgment, deems that a medical need exists for a medication without regard to previous use.
--- NOTE | 2020-09-25 12:57 | CONSULTATION NOTE ---
Referring Provider Name of Referring Provider:: Dr. Lara Consult Date: 09/25/20 Chief Complaint - Chief Complaint Chief Complaint: Right knee pain following fall History of Present Illness - History Obtained From Records Reviewed: Yes History obtained from: Patient - History of Present Illness HPI Comment/Other: This is a 69-year-old woman who presents with a chief complaint of pain to her right knee and to a much lesser degree in her right shoulder area. She was coming out of a 1 ton van and when she got out of the van to the pavement apparently lost her footing and fell directly onto a parking block type structure. Her right knee hit this hard object and she fell onto her right side. She has mild pain to her right shoulder. Most all of the pain is to her right knee. She had immediate pain to her right knee. She was unable to ambulate and was brought to the emergency room following injury. She denies chest pain, shortness of breath, dizziness, syncope or loss of consciousness associated with the fall She is normally active and independent in daily living activities. She lives alone. Her main medical problems appear to be pulmonary. She has a history of chronic smoking but did quit about 4 years ago. She is on Symbicort on a daily basis. She has sleep apnea. She does have exertional shortness of breath at times. She denies myocardial infarction, stroke, cancer or diabetes and no history of any pulmonary embolus or deep venous thrombosis Her pain is not increasing to right knee. She been placed in a splint, elevating right leg and receiving appropriate analgesics.She denies any neurologic or vascular symptoms to her right leg. She has no previous problems to right shoulder or right knee. History - Past Medical History Cardiovascular: reports: Hypertension, High cholesterol Respiratory: reports: Emphysema, Sleep apnea, CPAP use Endocrine/Autoimmune: reports: HyPOthyroidism GI: reports: GERD : reports: Incontinence, Kidney stones HEENT: reports: None Psych: reports: None Musculoskeletal: reports: None Derm: reports: None MRSA Hx?: No - Past Surgical History General: reports: Colonoscopy Ortho: reports: Other Other past surgical history: left upper lung lobe biopsy - Family & Social History Family History Comment/Other: Her mother had significant coronary artery disease and diabetes. She had a brother who from sarcoma. Another brother has obstructive sleep apnea. Living arrangement: At home Living Situation: Alone Social History Notes: She lives in her house alone and is normally independent of activities of daily living. She denies using tobacco products or recreational substances. She drinks occasionally. - POLST Patient has POLST: No POLST Status: Full Code Meds/Allgy - Home Medications Home Medications: Ambulatory Orders Medication Instructions Recorded Confirmed Ascorbic Acid [Vitamin C] 1,000 mg PO BID 11/18/14 09/25/20 Aspirin 81 mg PO DAILY 11/18/14 09/25/20 Multivitamin [Multivitamins] 1 tab PO DAILY 11/18/14 09/25/20 Ubidecarenone [Coenzyme Q10] 1 tab PO DAILY 11/18/14 09/25/20 Vitamin B Complex Vit C No.4 1 tab PO DAILY 11/18/14 09/25/20 [Super B Complex] Alendronate [Fosamax] 70 mg PO .ONE PER WEEK 09/24/20 09/25/20 Ipratropium/Albuterol [Combivent 1 puffs INH QID 09/24/20 09/25/20 Respimat] Irbesartan/Hydrochlorothiazide 1 tab PO DAILY 09/24/20 09/25/20 [Avalide 300-12.5 mg Tablet] Magnesium Chloride [Slow-Mag] 1 tab PO DAILY 09/24/20 09/25/20 Atenolol [Tenormin] 50 mg PO BID 09/25/20 09/25/20 Atorvastatin [Lipitor] 20 mg PO DAILY 09/25/20 09/25/20 Levothyroxine [Synthroid] 88 mcg PO DAILY 09/25/20 09/25/20 - Allergies Allergies/Adverse Reactions: Allergies Allergy/AdvReac Type Severity Reaction Status Date / Time beclomethasone dipropionate * Allergy Unknown Verified 09/30/18 13:04 [From Qvar] ciprofloxacin [From Cipro] Allergy Unknown Verified 09/30/18 13:04 ciprofloxacin HCl * Allergy Unknown Verified 09/30/18 13:04 [From Cipro] metronidazole Allergy Unknown Verified 09/30/18 13:04 Sulfa (Sulfonamide Allergy Unknown Verified 09/30/18 13:04 Antibiotics) Exam - Vital Signs Vital Signs: Vital Signs x48h Temp Pulse Pulse Resp BP Pulse Ox 09/25/20 11:56 37.2 C 81 18 119/68 93 09/25/20 09:27 36.9 C 77 18 96 09/25/20 08:00 36.9 C 77 18 131/82 H 96 - Physical Exam General Appearance: positive: Mild distress Respiratory: positive: Chest non-tender, No respiratory distress Cardiovascular: positive: Regular rate & rhythm Peripheral Pulses: positive: 2+ Abdomen: positive: Non-tender Neurologic/Psychiatric: positive: Oriented x3, Motor nml, Sensation nml Comments/Other: The right knee has been immobilized in a long-leg splint. She has intact neurologic function to her right foot, pulses intact, foot is warm, no sign of acute ischemia.The right arm has no focal tenderness, no swelling or ecchymosis. She has mild discomfort with range of motion above shoulder level. Conclusion and Plan - Lab Results Laboratory Results 09/25/20 08:51: PT 12.6, INR 1.1 09/25/20 03:40: Urine Color YELLOW, Urine Clarity HAZY, Urine pH 6.5, Ur Specific Dahlgren 1.020, Urine Protein NEGATIVE, Urine Glucose (UA) NEGATIVE, Urine Ketones NEGATIVE, Urine Occult Blood NEGATIVE, Urine Nitrite POSITIVE H, Urine Bilirubin NEGATIVE, Urine Urobilinogen 0.2 (NORMAL), Ur Leukocyte Esterase MODERATE H, Urine RBC 0-5, Urine WBC >25 H, Ur Squamous Epith Cells FEW Squamous, Urine Bacteria Many H, Ur Microscopic Review INDICATED, Urine Culture Comments INDICATED 09/25/20 02:42: Nasal Adenovirus (PCR) NOT DETECTED, Nasal B. parapertussis DNA (PCR) NOT DETECTED, Nasal Coronavir 229E PCR NOT DETECTED, Nasal Coronavir HKU1 PCR NOT DETECTED, Nasal Coronavir NL63 PCR NOT DETECTED, Nasal Coronavir OC43 PCR NOT DETECTED, Nasal Enterovir/Rhinovir PCR NOT DETECTED, Nasal Influenza B PCR NOT DETECTED, Nasal Influenza A PCR NOT DETECTED, Nasal Parainfluen 1 PCR NOT DETECTED, Nasal Parainfluen 2 PCR NOT DETECTED, Nasal Parainfluen 3 PCR NOT DETECTED, Nasal Parainfluen 4 PCR NOT DETECTED, Nasal RSV (PCR) NOT DETECTED, Nasal B.pertussis DNA PCR NOT DETECTED, Nasal C.pneumoniae (PCR) NOT DETECTED, Vimal Human Metapneumo PCR NOT DETECTED, Nasal M.pneumoniae (PCR) NOT DETECTED, Nasal SARS-CoV-2 (PCR) NOT DETECTED 09/25/20 02:40: Sodium 145, Potassium 4.0, Chloride 102, Carbon Dioxide 27, Anion Gap 16.0 H, BUN 19, Creatinine 0.9, Estimated GFR (MDRD) 62 L, Glucose 149 H, Calcium 9.3, Total Bilirubin 0.7, AST 20, ALT 20, Alkaline Phosphatase 62, Total Protein 6.7, Albumin 4.1, Globulin 2.6, Albumin/Globulin Ratio 1.6, Lipase 25 02/25/21 02:40: WBC 16.7 H, RBC 4.58, Hgb 14.4, Hct 42.8, MCV 93.4, MCH 31.4 H, MCHC 33.6, RDW 12.5, Plt Count 186, MPV 11.3 H, Neut # (Auto) 14.5 H, Lymph # (Auto) 1.3 L, [place] # (Auto) 0.8, Eos # (Auto) 0.0, Baso # (Auto) 0.0, Absolute Nucleated RBC 0.00, Nucleated RBC % 0.0 - Diagnostic Imaging Results Diagnostic Imaging Results: negative: Read independently (Routine x-rays and CT scan of the right knee were visualized. She has a bicondylar comminuted fracture of the tibial plateau with shaft extension. The lateral plateau is depressed approximately 2 cm with subluxation of bone laterally at the joint. This is a Schatzker type fracture.) - Diagnosis Diagnosis: Bicondylar, closed displaced tibial plateau fracture with shaft extension, Schatzker type fracture, right knee. Right shoulder strain - Plan Plan: Your right shoulder strain does not need any specific treatment at this time. She has severe injury to the right knee. This is displaced, comminutedAnd has high risk of potential complications. These complications are both acute and chronic. Acute complications include potential problems with wound healing, infection. Long-term complications are posttraumatic arthritis of the right knee that could necessitate a right total knee arthroplasty. I discussed both nonoperative and operative treatment and she like to proceed with operative treatment which would involve open reduction internal fixation. I discussed potential chronic disability for walking and everyday activities. She is in agreement to surgery. Acute complications include problems with wound healing, bleeding, neurologic or vascular deficit, failure of internal fixation, malunion, nonunion and posttraumatic arthritis the right knee. She has had preoperative medical evaluation without specific contraindication to surgery. The plan is to do her surgery tomorrow which involve open reduction internal fixation of the right tibial plateau fracture and right tibia. I have asked the medical provider to stop the Lovenox prior to surgery. I did discuss the lengthy rehabilitation with her including nonweightbearing for at least 2 to 3 months following surgery on right leg. General risks were also discussed including myocardial infarction, stroke, deep venous thrombosis and pulmonary embolus.
[2020-09-25] MEDS: IPRATROPIUM/ALBUTEROL 3 ML NEB INH PRN ×2 (15:04→18:23)
[2020-09-25] MEDS: SACCHAROMYCES BOULARDII 250 MG CAPSULE PO SCH (16:41)
[2020-09-25] MEDS: atenoloL 25 MG TABLET PO SCH (21:33)
[2020-09-26] MEDS: SODIUM CHLORIDE FLUSH 0.9% 10 ML SYRINGE IVP SCH ×2 (00:18→17:07)
[2020-09-26] MEDS: HYDROmorphone 0.5 MG/0.5 ML SYRINGE IVP PRN (03:16)
[2020-09-26 05:16] LABS: BASOPHILS % (AUTO) 0.2 %; EOSINOPHILS % (AUTO) 0.5 %; HCT - HEMATOCRIT 32.7 % (37.0-47.0); HGB - HEMOGLOBIN 10.6 g/dL (12.0-16.0); LYMPHOCYTES # (AUTO) 1.5 10^3/uL (1.5-3.5); MEAN CORPUSCULAR HEMOGLOBIN 30.7 pg (27.0-31.0); MEAN CORPUSCULAR HGB CONC 32.4 g/dL (32.0-36.0); MEAN CORPUSCULAR VOLUME 94.8 fL (81.0-99.0); MEAN PLATELET VOLUME 11.9 fL (7.9-10.8); MONOCYTES # (AUTO) 0.9 10^3/uL (0.0-1.0); MONOCYTES % (AUTO) 10.5 %; NEUTROPHILS # (AUTO) 5.8 10^3/uL (1.5-6.6); NEUTROPHILS % (AUTO) 70.7 %; PLT - PLATELET COUNT 141 10^3/uL (130-450); RED BLOOD COUNT 3.45 10^6/uL (4.20-5.40); RED CELL DISTRIBUTION WIDTH 12.9 % (12.0-15.0); WHITE BLOOD COUNT 8.2 x10^3/uL (4.8-10.8)
[2020-09-26 05:22] LABS: CALCIUM 8.1 mg/dL (8.5-10.3); POTASSIUM 3.6 mmol/L (3.5-5.0)
[2020-09-26] MEDS: PANTOPRAZOLE 40 MG TABLET PO SCH (06:02)
[2020-09-26] MEDS: SODIUM CHLORIDE 0.9% 1,000 ML IV SCH ×2 (06:02→21:52)
--- NOTE | 2020-09-26 06:55 | ANESTHESIA ---
Pre-Anesthesia VS, & Labs - Diagnosis Diagnosis Bicondylar, closed displaced tibial plateau fracture with shaft extension, Schatzker type fracture, right knee Right shoulder strain - Procedure ORIF R tibial plateau fx Vital Signs: Temp Pulse Resp BP Pulse Ox 37.3 C 90 16 130/69 94 09/26/20 04:57 09/26/20 04:57 09/26/20 04:57 09/26/20 04:57 09/26/20 04:57 Height: 5 ft 3 in Weight (kg): 81.5 kg Body Mass Index: 31.8 BMI Classification: Obese - NPO >8 hours - Is Patient ?: No - Lab Results Current Lab Results: Laboratory Tests 09/26/20 04:35: TSH 0.58 09/26/20 04:35: Sodium 138, Potassium 3.6, Chloride 105, Carbon Dioxide 26, Anion Gap 7.0, BUN 17, Creatinine 1.0, Estimated GFR (MDRD) 55 L, Glucose 126 H, Calcium 8.1 L 09/26/20 04:35: WBC 8.2, RBC 3.45 L, Hgb 10.6 L, Hct 32.7 L, MCV 94.8, MCH 30.7, MCHC 32.4, RDW 12.9, Plt Count 141, MPV 11.9 H, Neut # (Auto) 5.8, Lymph # (Auto) 1.5, Donley # (Auto) 0.9, Eos # (Auto) 0.0, Baso # (Auto) 0.0, Absolute Nucleated RBC 0.00, Nucleated RBC % 0.0 09/25/20 08:51: PT 12.6, INR 1.1 09/25/20 02:40: Sodium 145, Potassium 4.0, Chloride 102, Carbon Dioxide 27, Anion Gap 16.0 H, BUN 19, Creatinine 0.9, Estimated GFR (MDRD) 62 L, Glucose 149 H, Calcium 9.3, Total Bilirubin 0.7, AST 20, ALT 20, Alkaline Phosphatase 62, Total Protein 6.7, Albumin 4.1, Globulin 2.6, Albumin/Globulin Ratio 1.6, Lipase 25 09/25/20 02:40: WBC 16.7 H, RBC 4.58, Hgb 14.4, Hct 42.8, MCV 93.4, MCH 31.4 H, MCHC 33.6, RDW 12.5, Plt Count 186, MPV 11.3 H, Neut # (Auto) 14.5 H, Lymph # (Auto) 1.3 L, Donley # (Auto) 0.8, Eos # (Auto) 0.0, Baso # (Auto) 0.0, Absolute Nucleated RBC 0.00, Nucleated RBC % 0.0 Lab results reviewed: Yes Fish Bones: 09/26/20 04:35 09/26/20 04:35 Home Medications and Allergies Home Medications: Ambulatory Orders Alendronate [Fosamax] 70 mg PO .ONE PER WEEK 09/24/20 Ipratropium/Albuterol [Combivent Respimat] 1 puffs INH QID 09/24/20 Irbesartan/Hydrochlorothiazide [Avalide 300-12.5 mg Tablet] 1 tab PO DAILY 09/24/20 Magnesium Chloride [Slow-Mag] 1 tab PO DAILY 09/24/20 Atenolol [Tenormin] 50 mg PO BID 09/25/20 Atorvastatin [Lipitor] 20 mg PO DAILY 09/25/20 Levothyroxine [Synthroid] 88 mcg PO DAILY 09/25/20 Active Medications Acetaminophen (Acetaminophen 325 Mg Tablet) 650 mg PO Q4HR PRN PRN Reason: Pain 1 to 4 Last Admin: 09/25/20 21:44 Dose: 650 mg Documented by: Hydrocodone Bitart/Acetaminophen (Hydrocod/Acetam 5/325 Mg Tablet) 1 tab PO Q4HR PRN PRN Reason: Pain 5 to 7 Last Admin: 09/25/20 16:14 Dose: 1 tab Documented by: Albuterol (Albuterol Neb 2.5 Mg/3 Ml) 2.5 mg INH RTQ4H PRN PRN Reason: Wheezing Albuterol/Ipratropium (Ipratropium/Albuterol 3 Ml Neb) 3 ml INH RTQID PRN PRN Reason: Shortness of Air/Wheezing Last Admin: 09/25/20 18:23 Dose: 3 ml Documented by: Atenolol (Atenolol 25 Mg Tablet) 50 mg PO BID UYEN Last Admin: 09/25/20 21:33 Dose: 50 mg Documented by: Cyclobenzaprine HCl (Cyclobenzaprine 10 Mg Tablet) 10 mg PO TID PRN PRN Reason: Spasms Last Admin: 09/25/20 10:20 Dose: 10 mg Documented by: Hydromorphone HCl (Hydromorphone 0.5 Mg/0.5 Ml Syringe) 0.5 mg IVP Q2H PRN PRN Reason: Pain 8 to 10 Last Admin: 09/26/20 03:16 Dose: 0.5 mg Documented by: Sodium Chloride (Normal Saline 0.9%) 1,000 mls @ 75 mls/hr IV .[id number] [facility] Last Admin: 09/26/20 06:02 Dose: 75 mls/hr Documented by: Ceftriaxone Sodium 1 gm/ (Sodium Chloride) 100 mls @ 200 mls/hr IV DAILY [facility] Last Infusion: 09/25/20 10:50 Dose: Infused Documented by: Levothyroxine Sodium (Levothyroxine 88 Mcg Tablet) 88 mcg PO DAILY [facility] Ondansetron HCl (Ondansetron 4 Mg/2 Ml Vial) 4 mg IVP Q6HR PRN PRN Reason: Nausea / Vomiting Pantoprazole Sodium (Pantoprazole 40 Mg Tablet) 40 mg PO QDAC [facility] Last Admin: 09/26/20 06:02 Dose: 40 mg Documented by: Saccharomyces Boulardii (Saccharomyces Boulardii 250 Mg Capsule) 250 mg PO BIDWM [facility] Last Admin: 09/25/20 16:41 Dose: 250 mg Documented by: Sodium Chloride (Sodium Chloride Flush 0.9% 10 Ml Syringe) 10 ml IVP PRN PRN PRN Reason: NEEDED PER PROVIDER ORDERS Sodium Chloride (Sodium Chloride Flush 0.9% 10 Ml Syringe) 10 ml IVP 0100,0900,1700 [facility] Last Admin: 09/26/20 00:18 Dose: Not Given Documented by: Ascorbic Acid [Vitamin C] 1,000 mg PO BID 11/18/14 Aspirin 81 mg PO DAILY 11/18/14 Multivitamin [Multivitamins] 1 tab PO DAILY 11/18/14 Ubidecarenone [Coenzyme Q10] 1 tab PO DAILY 11/18/14 Vitamin B Complex Vit C No.4 [Super B Complex] 1 tab PO DAILY 11/18/14 Alendronate [Fosamax] 70 mg PO .ONE PER WEEK 09/24/20 Ipratropium/Albuterol [Combivent Respimat] 1 puffs INH QID 09/24/20 Irbesartan/Hydrochlorothiazide [Avalide 300-12.5 mg Tablet] 1 tab PO DAILY 09/24/20 Magnesium Chloride [Slow-Mag] 1 tab PO DAILY 09/24/20 Atenolol [Tenormin] 50 mg PO BID 09/25/20 Atorvastatin [Lipitor] 20 mg PO DAILY 09/25/20 Levothyroxine [Synthroid] 88 mcg PO DAILY 09/25/20 Allergies/Adverse Reactions: Allergies Allergy/AdvReac Type Severity Reaction Status Date / Time beclomethasone dipropionate * Allergy Unknown Verified 09/30/18 13:04 [From Qvar] ciprofloxacin [From Cipro] Allergy Unknown Verified 09/30/18 13:04 ciprofloxacin HCl * Allergy Unknown Verified 09/30/18 13:04 [From Cipro] metronidazole Allergy Unknown Verified 09/30/18 13:04 Sulfa (Sulfonamide Allergy Unknown Verified 09/30/18 13:04 Antibiotics) Anes History & Medical History - Anesthetic History Anesthesia Complications: reports: No previous complications Family history of Anesthesia Complications: Denies Family history of Malignant Hyperthermia: Denies - Medical History Cardiovascular: reports: Hypertension, High cholesterol Pulmonary: reports: Emphysema, Sleep apnea, CPAP use Gastrointestinal: reports: GERD Urinary: reports: Incontinence, Kidney stones Musculoskeletal: reports: None Endocrine/Autoimmune: reports: HyPOthyroidism Skin: reports: None Smoking Status: Never smoker - Surgical History General: reports: Colonoscopy Orthopedic: reports: Other Other Past Surgical History: left upper lung lobe biopsy Exam General: Alert, Oriented x3, Cooperative Mouth Openin Fingerbreadth Neck Mobility: Normal Mallampati classification: II Respiratory: Lungs clear, Normal breath sounds Cardiovascular: Regular rate Neurological: Normal speech Mental/Cognitive Status: Alert/Oriented X3, Normal for patient Cognitive Status: Within normal limits Plan Anesthesia Type: General, Adductor Block (possible post-op) Consent for Procedure(s) Verified and Reviewed: Yes Code Status: Attempt Resuscitation ASA classification: 2-Mild systemic disease Is this case an emergency?: No
[2020-09-26] MEDS ORDERED: LIDOCAINE-MPF 2% 5 ML VIAL ONE (07:10)
[2020-09-26] MEDS ORDERED: PROPOFOL 200 MG/20 ML VIAL IVP ONE (07:10)
[2020-09-26] MEDS ORDERED: fentaNYL 100 MCG/2 ML VIAL ONE ×2 (07:11→14:41)
[2020-09-26] MEDS ORDERED: MIDAZOLAM 2 MG/2 ML VIAL ONE (07:11)
[2020-09-26] MEDS ORDERED: LIDOCAINE 2%-EPI 1:100000 20 ML MDV ONE (07:24)
[2020-09-26] MEDS ORDERED: BUPIVACAINE 0.5% PF 30 ML VIAL ONE (07:25)
[2020-09-26] MEDS ORDERED: ROPIVACAINE 0.5% PF 20 ML AMPULE ONE (07:41)
[2020-09-26] MEDS ORDERED: ceFAZolin 1 GM VIAL ONE ×2 (08:00→12:53)
--- NOTE | 2020-09-26 08:25 | Ultrasound Report ---
PROCEDURE: Retroperitoneal INDICATIONS: Left flank pain TECHNIQUE: Real-time scanning was performed of the retroperitoneal organs, with image documentation. COMPARISON: None. FINDINGS: The right kidney measures 12 cm in length. The left kidney measures 10 cm in length. Both kidneys dem onstrate normal cortical thickness. There is a small cyst in the superior pole of the left kidney vaughn suring approximately 1 cm. There is an echogenic focus in the left lower pole measuring 4 mm which ma y represent a nonobstructing calculus or potentially a parenchymal calcification. There is no hydrone phrosis. Masslike echogenic focus in the posterior urinary bladder measuring 4 cm. This is a vascular. There i s no significant change in position of the echogenic focus when the patient position was changed. IMPRESSION: Multiphase urography protocol CT of the abdomen and pelvis is recommended for further evaluation of a suspected bladder mass. No hydronephrosis. Possible 4 mm nonobstructing left renal calculus. Reviewed by: Luther Moffett MD on 09/26/2020 8:24 AM PST Approved by: Luther Moffett MD on 09/26/2020 8:24 AM PST Station ID: [id number]
[2020-09-26] MEDS ORDERED: DEXAMETHASONE 4 MG/ML VIAL ONE (08:30)
[2020-09-26] MEDS ORDERED: ONDANSETRON 4 MG/2 ML VIAL ONE (08:30)
[2020-09-26] MEDS ORDERED: PHENYLEPHRINE 10 MG/ML VIAL ONE (08:37)
[2020-09-26] MEDS ORDERED: ePHEDrine 50 MG/ML VIAL IVP ONE (08:47)
[2020-09-26] MEDS ORDERED: TRANEXAMIC ACID 1,000 MG/10 ML VIAL ONE (08:52)
[2020-09-26] MEDS ORDERED: ACETAMINOPHEN 1,000 MG/100 ML 100 ML IV ONE (09:12)
[2020-09-26] MEDS ORDERED: fentaNYL 100 MCG/2 ML VIAL IVP PRN (10:12)
[2020-09-26] MEDS ORDERED: HYDROmorphone 0.5 MG/0.5 ML SYRINGE IVP PRN (10:12)
[2020-09-26] MEDS ORDERED: METOCLOPRAMIDE 10 MG/2 ML VIAL IVP PRN (10:12)
[2020-09-26] MEDS ORDERED: ONDANSETRON 4 MG/2 ML VIAL IVP PRN ×3 (10:12→14:42)
[2020-09-26] MEDS ORDERED: ATROPINE ABBOJECT 1 MG/10 ML SYRINGE IVP PRN (10:12)
[2020-09-26] MEDS ORDERED: NALOXONE 0.4 MG/ML VIAL IVP PRN (10:12)
[2020-09-26] MEDS ORDERED: MORPHINE 2 MG/ML CARPUJECT IVP PRN (10:12)
[2020-09-26] MEDS ORDERED: ePHEDrine 50 MG/ML VIAL IVP PRN (10:12)
[2020-09-26] MEDS: FORMOTEROL FUMARATE NEB 20 MCG/2 ML INH SCH ×2 (10:37→21:30)
[2020-09-26] MEDS: BUDESONIDE 0.5 MG/2 ML NEB INH SCH ×2 (10:37→21:30)
[2020-09-26] MEDS ORDERED: LACTATED RINGERS 1,000 ML IV SCH (11:00)
[2020-09-26] MEDS ORDERED: VANCOMYCIN 1 GM VIAL ONE (11:37)
--- NOTE | 2020-09-26 14:16 | XRAY Report ---
PROCEDURE: OR C-Arm Procedure INDICATIONS: right tibial fx TECHNIQUE: 2 views of the operative fluoroscopy images. COMPARISON: X-ray of the right knee, 09/25/2020 CT of the right lower extremity, 09/25/2020. FINDINGS: Open reduction and internal fixation of tibial plateau fracture and proximal tibial metaphy seal fracture with surgical plates and multiple surgical screws. Noted is made of a proximal volar ne ck fracture. IMPRESSION: ORIF of tibial plateau fracture. Reviewed by: Bre Daniel MD on 09/26/2020 2:14 PM PST Approved by: Bre Daniel MD on 09/26/2020 2:14 PM PST Station ID: [id number]
[2020-09-26] MEDS ORDERED: LACTATED RINGERS 1,000 ML IV ONE ×2 (14:41→14:55)
[2020-09-26] MEDS ORDERED: HYDROcod/ACETAM 5/325 MG TABLET PO PRN (14:42)
[2020-09-26] MEDS ORDERED: ACETAMINOPHEN 325 MG TABLET PO PRN (14:42)
[2020-09-26] MEDS ORDERED: ACETAMINOPHEN 1,000 MG/100 ML 100 ML IV PRN (14:42)
[2020-09-26] MEDS ORDERED: SODIUM CHLORIDE FLUSH 0.9% 10 ML SYRINGE IVP PRN ×2 (14:42)
[2020-09-26] MEDS ORDERED: DOCUSATE SODIUM 100 MG CAPSULE PO PRN ×2 (14:42)
[2020-09-26] MEDS ORDERED: PROCHLORPERAZINE 10 MG/2 ML VIAL IVP PRN (14:42)
--- NOTE | 2020-09-26 14:47 | OPERATIVE REPORT ---
Operative Report - General Admit Date: 09/25/20 Procedure Date: 09/26/20 Planned Procedure: Open reduction internal fixation tibial plateau fracture right knee Pre-Op Diagnosis: Displaced bicondylar tibial plateau fracture with shaft extension, Schatzke Procedure Performed: Open reduction internal fixation tibial plateau right knee with lateral buttress plate, locking; long locking medial buttress plate and posterior medial buttress plate, locking; calcium phosphate cement and morselized cancellous allograft Post Op Diagnosis: Same as preoperative diagnosis - Procedure Note Primary Surgeon: Trevin Swann MD Secondary Surgeon: Jesus JONES Anesthesia Provider: Amor Fenton CRNA Anesthesia Technique: General ET tube, Regional block IV Fluids (mL): 350 Indications: This is a ambulatory 69-year-old woman who fell getting out of her 1 ton van. She had a hard object when she fell and it struck her in the knee area on the right side. She had immediate pain and inability to ambulate and was brought to the hospital and admitted yesterday. She has a closed right knee fracture, isolated injury, stable and had preoperative medical evaluation. There is no sign of compartment syndrome, no neurologic or vascular deficit to the right leg preoperatively. She had routine radiographs and CT scan of the right knee area which show a severe fracture involving the tibial plateau of the right kneeWith the lateral tibial plateau was depressed at least 3 to 4 cm below the joint. With the medial condyle was split with a vertical shear type fracture. There was metaphyseal and posterior comminution and along shaft fracture coming off the posteromedial aspect of the proximal tibia. There was valgus angulation at the fracture site. This is a very comminuted fracture. Findings: This was a 3 column fracture with comminution. The lateral tibial plateau was depressed approximately 4 to 5 cm. There was articular cartilage with a chunk of cancellous bone of the lateral plateau that was found 4 to 5 cm distal to the joint the posterior shaft fragment was split vertically and this was separate from a relatively large medial condylar fragment. There was metaphyseal comminution mostly posteromedially. There was comminution on the lateral side but is mostly a simple depression in comparison to the medial side which had a shaft fracture extension separate from the condyle medially. The fracture was unstable. Complications: None noted - Other Other Information/Narrative: And the patient was brought to the operating room. She was placed in the supine position with a bolster beneath the right hip. A foam bolster was placed beneath the right leg. A Anthony catheter had been inserted. She was given a general endotracheal anesthetic and also was given an adductor block. The right lower extremity was prepped and draped in a sterile manner in the usual fashion. A timeout procedure was performed by the entire operating room team and all were in agreement. A C arm image intensifier was used intermittently throughout the procedure and a sterile cover had been applied to the C arm. A physician financial assistant was used throughout the procedure and was necessary to facilitate reduction, protect vital structures, wound closure and splinting. A anterolateral incision was made over where the tibial plateau extending to the fibula posteriorly. The anterior compartment was elevated. The split in the tibial plateau was opened like a book. This allowed elevation of the depressed plateau which was found to 4 to 5 cm below the joint line. This was elevated to the joint line and secured with a K wire. A femoral distractor was applied by inserting a 5 mm half pin parallel to the joint across the femoral condyles from lateral to medial. A second 5 mm screw was inserted from lateral to medial distal to the fracture site. A 400 mm carbon fiber trisha was then used with a pin clamp holders on each of the pins. This acted as a femoral distractor since we did not have a femoral distractor. The fracture was distracted and locked in position. Next the medial incision was made just posterior to the tibia and plateau. Care was taken to avoid saphenous nerve branches and vein as well as the collateral ligament and the pes anserine tendons. The fracture in the shaft was split vertically this was reduced and clamped and held with some lag screws. 2 lag screws were utilized from posterior to anterior and this stabilized that segment. A long plate was applied from the medial femoral condyle all the way distally to cross the shaft fracture. This was a 16 hole plate. The gastrocnemius had been elevated to help apply the plate. The plate was secured proximally and distally. This aligned the shaft fracture very nice. Next the void in the lateral compartment was filled with a combination of calcium phosphate, 10 cc as well as 40 cc of morselized cancellous allograft bone chips. The bone chips were impacted with a bone impactor to help support the joint surface. A lateral buttress plate was inserted after the lateral marginal fracture fragment had been secured to the lateral tibial plateau. The buttress plate was secured proximally and distally and 5 rafting screws were inserted from lateral to medial utilizing C arm image intensifier control. In the medial column plate was stabilized. After both plates had been applied the joint surface elevation and tibiofemoral joint appeared congruent. However there was some valgus instability because of the medial condyle and metaphyseal defect connecting to the shaft. To help improve the stability, a 3.5 mm straight locking plate was gently bent with the plate benders to contour to the posteromedial aspect of the proximal tibia 2 locking screws were placed into the proximal fragment and approximately 3 distally to act as a buttress plate. There was considerable comminution in this area so the fixation was not as strong as it would have been otherwise. Nevertheless this provided considerable stability and and improvement with valgus stress to the knee so that the knee was stable in extension to varus and valgus stress. The wounds have been thoroughly irrigated. Vancomycin powder 2 g were placed in each of the major incisions. The wounds were closed in layers of the fascia and muscle to cover the plates, subcutaneous tissue closure with 2-0 Vicryl and skin closed with stainless steel jarrod. Although a tourniquet had been applied to the proximal right thigh was not utilized during surgery. The external fixator had been removed. The patient received 2 g of Ancef before surgery and 2 g of Ancef during surgery. She also received tranexamic acid. A long leg fiberglass splint with the splint being applied posteriorly was applied from foot to proximal thigh. The alignment of the right leg appeared within normal limits.
[2020-09-26] MEDS: IPRATROPIUM/ALBUTEROL 3 ML NEB INH PRN ×2 (16:04→21:30)
[2020-09-26] MEDS: SACCHAROMYCES BOULARDII 250 MG CAPSULE PO SCH ×2 (16:41→17:06)
[2020-09-26] MEDS: NS W/20 MEQ KCL 1,000 ML IV SCH (16:46)
[2020-09-26] MEDS: LEVOTHYROXINE 88 MCG TABLET PO SCH (16:48)
[2020-09-26] MEDS: atenoloL 25 MG TABLET PO SCH ×2 (16:48→21:51)
[2020-09-26] MEDS: cefTRIAXone 1 GM in SODIUM CHLORIDE 0.9% MINIBAG 100 ML IV SCH (16:48)
[2020-09-26] MEDS: ceFAZolin 2 GM/50 ML 2 GM/50 ML BAG IV SCH (16:48)
[2020-09-26] MEDS ORDERED: SODIUM CHLORIDE FLUSH 0.9% 10 ML SYRINGE IVP SCH (17:00)
--- NOTE | 2020-09-26 17:13 | ANESTHESIA POST OP EVALUATION ---
Anesthesia Post Eval - Post Anesthesia Eval Vitals: Last Vital Signs Temp 37.0 C 09/26/20 16:30 Pulse 81 09/26/20 16:30 Resp 17 09/26/20 16:30 BP 124/70 09/26/20 16:30 Pulse Ox 95 09/26/20 16:30 CV Function Including HR & BP: positive: Stable Pain Control: positive: Satisfactory Nausea & Vomiting: positive: Negative Mental Status: positive: Patient Participates Respiratory Status: Airway Patent Hydration Status: Satisfactory Anesthesia Complications: positive: None
[2020-09-26] MEDS: ACETAMINOPHEN 500 MG TABLET PO SCH (18:03)
--- NOTE | 2020-09-26 19:01 | PROVIDER PROGRESS NOTE ---
Assessment/Plan - Problem List (1) Tibial plateau fracture, right Qualifiers: Encounter type: initial encounter Fracture type: closed Qualified Code(s): S82.141A - Displaced bicondylar fracture of right tibia, initial encounter for closed fracture Assessment/Plan: Patient is postop day #0 for Open reduction internal fixation of right tibial plateau fracture Surgery lasted about 5 hours. There was approximately 350 mils of blood loss during surgery. (3) Hypertension Assessment/Plan: On Atenolol and Losartan/HCTZ. (4) Hyperlipidemia Assessment/Plan: On atorvastatin 20 mg p.o. daily. (5) Hypothyroidism Assessment/Plan: On Synthroid 88 mcg p.o. daily. (6) Obstructive sleep apnea on CPAP Assessment/Plan: Patient uses CPAP at night. (7) Leukocytosis Assessment/Plan: Improved. WBC today is 8.2. Patient is on Rocephin for UTI positive for E. coli. (8) UTI (urinary tract infection) Assessment/Plan: E. coli grew in urine culture. Patient is on Rocephin. Will continue. Renal ultrasound was negative for pyelonephritis. A 4 mm non-obstructing left renal calculus was noted. (9) Anemia Assessment/Plan: ? 2/2 Acute blood loss vs 2/2 dilution Movement dropped from 14 down to 10. Repeat CBC in the a.m. If there is a further significant drop and or patient becomes dyspneic or hypotensive, we will consider transfusing packed red blood cells. (10) Bladder mass Assessment/Plan: A 4cm avascular mass was noted on retroperitoneal ultrasound. CT abdomen/pelvis recommended for further evaluation. It has been ordered for the morning. - Current Meds Current Meds: Current Medications Generic Name Dose Route Start Last Admin Trade Name Freq PRN Reason Stop Dose Admin Acetaminophen 1,000 mg 09/26/20 18:00 09/26/20 18:03 Acetaminophen 500 Mg Tablet PO 1,000 mg Q6HR UYEN Administration Albuterol/Ipratropium 3 ml 09/25/20 08:36 09/26/20 16:04 Ipratropium/Albuterol 3 Ml Neb INH 3 ml RTQID PRN Administration Shortness of Air/Wheezing Atenolol 50 mg 09/25/20 21:00 09/26/20 16:48 Atenolol 25 Mg Tablet PO Not Given BID UYEN Budesonide 0.5 mg 09/26/20 10:00 09/26/20 10:37 Budesonide 0.5 Mg/2 Ml Neb INH Not Given RTBID UYEN Cyclobenzaprine HCl 10 mg 09/25/20 03:07 09/25/20 10:20 Cyclobenzaprine 10 Mg Tablet PO 10 mg TID PRN Administration Spasms Formoterol Fumarate 20 mcg 09/26/20 10:00 09/26/20 10:37 Formoterol Fumarate Neb 20 Mcg/2 Ml INH Not Given RTBID UYEN Sodium Chloride 1,000 mls @ 75 mls/hr 09/25/20 04:00 09/26/20 17:49 Normal Saline 0.9% IV Infused .[id number] UYEN Infusion Ceftriaxone Sodium 1 gm/ 100 mls @ 200 mls/hr 09/25/20 09:00 09/26/20 16:48 Sodium Chloride IV Not Given DAILY UYEN Cefazolin Sodium/Dextrose 2 gm in 50 mls @ 100 mls/hr 09/26/20 16:00 09/26/20 17:47 Ancef 2 Gm/50 Ml IV 09/27/20 00:29 Infused Q8H UYEN Infusion Potassium Chloride/Sodium Chloride 1,000 mls @ 100 mls/hr 09/26/20 16:00 09/26/20 16:46 Normal Saline 0.9% W/20 Meq Kcl IV 100 mls/hr .Q10H UYEN Administration Levothyroxine Sodium 88 mcg 09/26/20 09:00 09/26/20 16:48 Levothyroxine 88 Mcg Tablet PO Not Given DAILY UYEN Pantoprazole Sodium 40 mg 09/25/20 07:00 09/26/20 06:02 Pantoprazole 40 Mg Tablet PO 40 mg QDAC UYEN Administration Saccharomyces Boulardii 250 mg 09/25/20 17:00 09/26/20 17:06 Saccharomyces Boulardii 250 Mg Capsule PO 250 mg BIDWM UYEN Administration Sodium Chloride 10 ml 09/26/20 17:00 09/26/20 17:07 Sodium Chloride Flush 0.9% 10 Ml Syringe IVP 10 ml 0100,0900,1700 UYEN Administration - Lab Result Fish Bone Diagrams: 09/26/20 04:35 09/26/20 04:35 - Additional Planning My Orders: My Active Orders 09/26/20 09:16 Resp Teach Nebulizer/MDI [RC] .ONCE 09/26/20 10:00 Budesonide [Pulmicort] 0.5 mg INH RTBID Formoterol Fumarate [Perforomist] 20 mcg INH RTBID 09/27/20 05:00 BMP - BASIC METABOLIC PANEL [CHEM] DAILYLAB CBC - COMP BLD CT W/AUTO DIFF [HEME] DAILYLAB 09/28/20 05:00 BMP - BASIC METABOLIC PANEL [CHEM] DAILYLAB CBC - COMP BLD CT W/AUTO DIFF [HEME] DAILYLAB Subjective - Subjective Patient Reports: Other (Patient resting comfortably in bed after surgery. She denies any pain currently. She has some weakness in her right upper extremity and is has limited range of motion with externally rotation of her forearm.) Objective Vital Signs: Vital Signs - 24 hr 09/25/20 09/25/20 09/26/20 21:43 23:32 00:23 Temperature 37.7 C 36.9 C 38.1 C H Heart Rate Heart Rate [ 97 94 Radial] Respiratory 20 17 Rate Blood Pressure Blood Pressure 119/62 [Left Brachial artery] Blood Pressure 119/55 L [Right Brachial artery] O2 Saturation 93 91 L 09/26/20 09/26/20 09/26/20 03:12 04:57 07:36 Temperature 37.4 C 37.3 C Heart Rate 91 Heart Rate [ 90 Radial] Respiratory 16 22 Rate Blood Pressure Blood Pressure [Left Brachial artery] Blood Pressure 130/69 [Right Brachial artery] O2 Saturation 94 09/26/20 09/26/20 09/26/20 14:41 14:45 14:50 Temperature 36.8 C Heart Rate 80 81 81 Heart Rate [ Radial] Respiratory 10 L 10 L 11 L Rate Blood Pressure 115/64 115/64 113/66 Blood Pressure [Left Brachial artery] Blood Pressure [Right Brachial artery] O2 Saturation 96 97 96 09/26/20 09/26/20 09/26/20 14:55 15:00 15:15 Temperature 36.8 C 36.8 C 36.5 C Heart Rate 80 78 85 Heart Rate [ Radial] Respiratory 11 L 11 L 12 Rate Blood Pressure 111/69 105/65 117/75 Blood Pressure [Left Brachial artery] Blood Pressure [Right Brachial artery] O2 Saturation 96 96 94 09/26/20 09/26/20 09/26/20 15:30 15:45 16:00 Temperature 36.5 C 36.5 C 37.0 C Heart Rate 81 86 Heart Rate [ 83 Radial] Respiratory 13 14 18 Rate Blood Pressure 132/84 H 111/62 Blood Pressure [Left Brachial artery] Blood Pressure 129/62 [Right Brachial artery] O2 Saturation 94 97 95 09/26/20 09/26/20 09/26/20 16:12 16:30 17:30 Temperature 37.0 C 37.1 C Heart Rate 80 Heart Rate [ 81 94 Radial] Respiratory 14 17 18 Rate Blood Pressure Blood Pressure [Left Brachial artery] Blood Pressure 124/70 119/58 L [Right Brachial artery] O2 Saturation 95 94 09/26/20 18:25 Temperature 37.1 C Heart Rate Heart Rate [ 88 Radial] Respiratory 18 Rate Blood Pressure Blood Pressure [Left Brachial artery] Blood Pressure 106/83 H [Right Brachial artery] O2 Saturation 97 Oxygen O2 Source CPAP I&O (Last 24 Hrs): Intake and Output Totals x24h 09/24/20 09/25/20 09/26/20 23:59 23:59 23:59 Intake Total 1936.25 2083 Output Total 500 410 Balance 1436.25 1673 General: Alert, Oriented x3, Cooperative, No acute distress HEENT: PERRLA, EOMI Neck: No JVD Neuro: Alert, Oriented Times 3 Cardiovascular: Regular rate, Normal S1, Normal S2, No murmurs Respiratory: Chest non-tender, No respiratory distress, Breath sounds nml Abdomen: Normal bowel sounds, Soft Extremities: No clubbing, No cyanosis, No edema Skin: No rashes - Results Results: Laboratory Results WBC 8.2 x10^3/uL (4.8-10.8) 09/26/20 04:35 RBC 3.45 10^6/uL (4.20-5.40) L 09/26/20 04:35 Hgb 10.6 g/dL (12.0-16.0) L 09/26/20 04:35 Hct 32.7 % (37.0-47.0) L 09/26/20 04:35 MCV 94.8 fL (81.0-99.0) 09/26/20 04:35 MCH 30.7 pg (27.0-31.0) 09/26/20 04:35 MCHC 32.4 g/dL (32.0-36.0) 09/26/20 04:35 RDW 12.9 % (12.0-15.0) 09/26/20 04:35 Plt Count 141 10^3/uL (130-450) 09/26/20 04:35 MPV 11.9 fL (7.9-10.8) H 09/26/20 04:35 Neut # (Auto) 5.8 10^3/uL (1.5-6.6) 09/26/20 04:35 Lymph # (Auto) 1.5 10^3/uL (1.5-3.5) 09/26/20 04:35 Bee # (Auto) 0.9 10^3/uL (0.0-1.0) 09/26/20 04:35 Eos # (Auto) 0.0 10^3/uL (0.0-0.7) 09/26/20 04:35 Baso # (Auto) 0.0 10^3/uL (0.0-0.1) 09/26/20 04:35 Absolute Nucleated RBC 0.00 x10^3/uL 09/26/20 04:35 Nucleated RBC % 0.0 /100WBC 09/26/20 04:35 PT 12.6 secs (9.9-12.6) 09/25/20 08:51 INR 1.1 (0.8-1.2) 09/25/20 08:51 Sodium 138 mmol/L (135-145) 09/26/20 04:35 Potassium 3.6 mmol/L (3.5-5.0) 09/26/20 04:35 Chloride 105 mmol/L (101-111) 09/26/20 04:35 Carbon Dioxide 26 mmol/L (21-32) 09/26/20 04:35 Anion Gap 7.0 (6-13) 09/26/20 04:35 BUN 17 mg/dL (6-20) 09/26/20 04:35 Creatinine 1.0 mg/dL (0.4-1.0) 09/26/20 04:35 Estimated GFR (MDRD) 55 (>89) L 09/26/20 04:35 Glucose 126 mg/dL (70-100) H 09/26/20 04:35 Calcium 8.1 mg/dL (8.5-10.3) L 09/26/20 04:35 Total Bilirubin 0.7 mg/dL (0.2-1.0) 09/25/20 02:40 AST 20 IU/L (10-42) 09/25/20 02:40 ALT 20 IU/L (10-60) 09/25/20 02:40 Alkaline Phosphatase 62 IU/L (42-121) 09/25/20 02:40 Total Protein 6.7 g/dL (6.7-8.2) 09/25/20 02:40 Albumin 4.1 g/dL (3.2-5.5) 09/25/20 02:40 Globulin 2.6 g/dL (2.1-4.2) 09/25/20 02:40 Albumin/Globulin Ratio 1.6 (1.0-2.2) 09/25/20 02:40 Lipase 25 U/L (22-51) 09/25/20 02:40 TSH 0.58 uIU/mL (0.34-5.60) 09/26/20 04:35 Urine Color YELLOW 09/25/20 03:40 Urine Clarity HAZY (CLEAR) 09/25/20 03:40 Urine pH 6.5 PH (5.0-7.5) 09/25/20 03:40 Ur Specific [place] 1.020 (1.002-1.030) 09/25/20 03:40 Urine Protein NEGATIVE mg/dL (NEGATIVE) 09/25/20 03:40 Urine Glucose (UA) NEGATIVE mg/dL (NEGATIVE) 09/25/20 03:40 Urine Ketones NEGATIVE mg/dL (NEGATIVE) 09/25/20 03:40 Urine Occult Blood NEGATIVE (NEGATIVE) 09/25/20 03:40 Urine Nitrite POSITIVE (NEGATIVE) H 09/25/20 03:40 Urine Bilirubin NEGATIVE (NEGATIVE) 09/25/20 03:40 Urine Urobilinogen 0.2 (NORMAL) E.U./dL (NORMAL) 09/25/20 03:40 Ur Leukocyte Esterase MODERATE (NEGATIVE) H 09/25/20 03:40 Urine RBC 0-5 /HPF (0-5) 09/25/20 03:40 Urine WBC >25 /HPF (0-5) H 09/25/20 03:40 Ur Squamous Epith Cells FEW Squamous (<= Few) 09/25/20 03:40 Urine Bacteria Many /HPF (None Seen) H 09/25/20 03:40 Ur Microscopic Review INDICATED 09/25/20 03:40 Urine Culture Comments INDICATED 09/25/20 03:40 Nasal Adenovirus (PCR) NOT DETECTED 09/25/20 02:42 Nasal B. parapertussis DNA (PCR) NOT DETECTED 09/25/20 02:42 Nasal Coronavir 229E PCR NOT DETECTED 09/25/20 02:42 Nasal Coronavir HKU1 PCR NOT DETECTED 09/25/20 02:42 Nasal Coronavir NL63 PCR NOT DETECTED 09/25/20 02:42 Nasal Coronavir OC43 PCR NOT DETECTED 09/25/20 02:42 Nasal Enterovir/Rhinovir PCR NOT DETECTED 09/25/20 02:42 Nasal Influenza B PCR NOT DETECTED 09/25/20 02:42 Nasal Influenza A PCR NOT DETECTED 09/25/20 02:42 Nasal Parainfluen 1 PCR NOT DETECTED 09/25/20 02:42 Nasal Parainfluen 2 PCR NOT DETECTED 09/25/20 02:42 Nasal Parainfluen 3 PCR NOT DETECTED 09/25/20 02:42 Nasal Parainfluen 4 PCR NOT DETECTED 09/25/20 02:42 Nasal RSV (PCR) NOT DETECTED 09/25/20 02:42 Nasal B.pertussis DNA PCR NOT DETECTED 09/25/20 02:42 Nasal C.pneumoniae (PCR) NOT DETECTED 09/25/20 02:42 Vimal Human Metapneumo PCR NOT DETECTED 09/25/20 02:42 Nasal M.pneumoniae (PCR) NOT DETECTED 09/25/20 02:42 Nasal SARS-CoV-2 (PCR) NOT DETECTED 09/25/20 02:42 - Procedures Procedures: Procedures COLONOSCOPY (11/18/14) ABX Reporting Has patient been on IV antibiotics over the past 48 hours?: Yes
[2020-09-26] MEDS ORDERED: ASPIRIN EC 81 MG TABLET PO SCH (21:00)
[2020-09-26] MEDS: CELECOXIB 100 MG CAPSULE PO SCH (21:51)
[2020-09-26] MEDS: ASPIRIN EC 81 MG TABLET PO SCH (21:51)
[2020-09-26] MEDS: ethyl alcohoL 62% SWAB AMPULE NAS SCH (21:52)
[2020-09-27] MEDS: ACETAMINOPHEN 500 MG TABLET PO SCH ×4 (00:08→18:28)
[2020-09-27] MEDS: ceFAZolin 2 GM/50 ML 2 GM/50 ML BAG IV SCH (00:11)
[2020-09-27] MEDS: SODIUM CHLORIDE FLUSH 0.9% 10 ML SYRINGE IVP SCH ×3 (00:20→18:05)
[2020-09-27] MEDS: oxyCODONE 5 MG TABLET PO PRN ×2 (01:13→10:47)
[2020-09-27] MEDS: NS W/20 MEQ KCL 1,000 ML IV SCH ×3 (03:59→18:43)
[2020-09-27 05:54] LABS: BASOPHILS % (AUTO) 0.2 %; EOSINOPHILS % (AUTO) 0.1 %; HCT - HEMATOCRIT 25.5 % (37.0-47.0); HGB - HEMOGLOBIN 8.3 g/dL (12.0-16.0); LYMPHOCYTES # (AUTO) 1.5 10^3/uL (1.5-3.5); LYMPHOCYTES % (AUTO) 16.7 %; MEAN CORPUSCULAR HEMOGLOBIN 31.1 pg (27.0-31.0); MEAN CORPUSCULAR HGB CONC 32.5 g/dL (32.0-36.0); MEAN CORPUSCULAR VOLUME 95.5 fL (81.0-99.0); MEAN PLATELET VOLUME 11.8 fL (7.9-10.8); MONOCYTES # (AUTO) 0.9 10^3/uL (0.0-1.0); MONOCYTES % (AUTO) 9.9 %; NEUTROPHILS # (AUTO) 6.6 10^3/uL (1.5-6.6); NEUTROPHILS % (AUTO) 72.7 %; PLT - PLATELET COUNT 134 10^3/uL (130-450); RED BLOOD COUNT 2.67 10^6/uL (4.20-5.40); RED CELL DISTRIBUTION WIDTH 12.8 % (12.0-15.0); WHITE BLOOD COUNT 9.1 x10^3/uL (4.8-10.8)
[2020-09-27 06:07] LABS: ALBUMIN 2.6 g/dL (3.2-5.5); ALBUMIN/GLOBULIN RATIO 1.1 (1.0-2.2); BILIRUBIN,TOTAL 0.5 mg/dL (0.2-1.0); CALCIUM 7.6 mg/dL (8.5-10.3); POTASSIUM 3.9 mmol/L (3.5-5.0)
[2020-09-27] MEDS: MORPHINE 2 MG/ML CARPUJECT IVP PRN ×2 (06:28→14:33)
[2020-09-27] MEDS: PANTOPRAZOLE 40 MG TABLET PO SCH (06:28)
[2020-09-27] MEDS ORDERED: IOVERSOL 320 100 ML VIAL IVP ONE ×3 (06:35→08:25)
--- NOTE | 2020-09-27 07:09 | PROVIDER PROGRESS NOTE ---
Assessment/Plan - Problem List (1) Tibial plateau fracture, right Qualifiers: Encounter type: initial encounter Fracture type: closed Qualified Code(s): S82.141A - Displaced bicondylar fracture of right tibia, initial encounter for closed fracture Assessment/Plan: Patient is postop day #1 for Open reduction internal fixation of right tibial plateau fracture Pain management weight Tylenol, Rea and oral Dilaudid. Patient to work with PT/OT today. We will await PTs recommendation for rehab (3) Hypertension Assessment/Plan: On Atenolol and Losartan/HCTZ. (4) Hyperlipidemia Assessment/Plan: On atorvastatin 20 mg p.o. daily. (5) Hypothyroidism Assessment/Plan: On Synthroid 88 mcg p.o. daily. (6) Obstructive sleep apnea on CPAP Assessment/Plan: Patient uses CPAP at night. (8) UTI (urinary tract infection) Assessment/Plan: E. coli grew in urine culture. Patient is on Rocephin. Will continue. Renal ultrasound was negative for pyelonephritis. A 4 mm non-obstructing left renal calculus was noted. (9) Anemia Assessment/Plan: Likely due to acute blood loss. It was reported that the patient lost about 350 mils of blood during surgery. Repeat CBC this morning showed a hemoglobin of 8.3. Admission 2 days ago the patient's hemoglobin was 14. We will transfuse the patient 1 unit of packed red blood cells. (10) Bladder mass Assessment/Plan: A 4cm avascular mass was noted on retroperitoneal ultrasound. CT abdomen/pelvis w and w/o contrast for further evaluation is pending. - Current Meds Current Meds: Current Medications Generic Name Dose Route Start Last Admin Trade Name Freq PRN Reason Stop Dose Admin Acetaminophen 1,000 mg 09/26/20 18:00 09/27/20 06:28 Acetaminophen 500 Mg Tablet PO 1,000 mg Q6HR UYEN Administration Albuterol/Ipratropium 3 ml 09/25/20 08:36 09/26/20 21:30 Ipratropium/Albuterol 3 Ml Neb INH 3 ml RTQID PRN Administration Shortness of Air/Wheezing Alcohol 1 amp 09/26/20 21:00 09/26/20 21:52 Ethyl Alcohol 62% Swab Ampule CARLOS 1 amp BID UYEN Administration Aspirin 81 mg 09/26/20 21:00 09/26/20 21:51 Aspirin Ec 81 Mg Tablet PO 81 mg BID UYEN Administration Atenolol 50 mg 09/25/20 21:00 09/26/20 21:51 Atenolol 25 Mg Tablet PO 50 mg BID UYEN Administration Budesonide 0.5 mg 09/26/20 10:00 09/26/20 21:30 Budesonide 0.5 Mg/2 Ml Neb INH 0.5 mg RTBID UYEN Administration Celecoxib 200 mg 09/26/20 21:00 09/26/20 21:51 Celecoxib 100 Mg Capsule PO 200 mg BID UYEN Administration Cyclobenzaprine HCl 10 mg 09/25/20 03:07 09/25/20 10:20 Cyclobenzaprine 10 Mg Tablet PO 10 mg TID PRN Administration Spasms Formoterol Fumarate 20 mcg 09/26/20 10:00 09/26/20 21:30 Formoterol Fumarate Neb 20 Mcg/2 Ml INH 20 mcg RTBID UYEN Administration Sodium Chloride 1,000 mls @ 75 mls/hr 09/25/20 04:00 09/26/20 21:52 Normal Saline 0.9% IV Not Given .[id number] UYEN Ceftriaxone Sodium 1 gm/ 100 mls @ 200 mls/hr 09/25/20 09:00 09/26/20 16:48 Sodium Chloride IV Not Given DAILY [facility] Potassium Chloride/Sodium Chloride 1,000 mls @ 100 mls/hr 09/26/20 16:00 09/27/20 03:59 Normal Saline 0.9% W/20 Meq Kcl IV 100 mls/hr .Q10H UYEN Administration Levothyroxine Sodium 88 mcg 09/26/20 09:00 09/26/20 16:48 Levothyroxine 88 Mcg Tablet PO Not Given DAILY UYEN Morphine Sulfate 2 mg 09/26/20 14:42 09/27/20 06:28 Morphine 2 Mg/Ml Carpuject IVP 2 mg Q2HR PRN Administration PAIN Oxycodone HCl 5 mg 09/26/20 14:42 09/27/20 01:13 Oxycodone 5 Mg Tablet PO 5 mg Q6HR PRN Administration PAIN Pantoprazole Sodium 40 mg 09/25/20 07:00 09/27/20 06:28 Pantoprazole 40 Mg Tablet PO 40 mg QDAC UYEN Administration Saccharomyces Boulardii 250 mg 09/25/20 17:00 09/26/20 17:06 Saccharomyces Juanchodii 250 Mg Capsule PO 250 mg BIDWM UYEN Administration Sodium Chloride 10 ml 09/26/20 17:00 09/27/20 00:20 Sodium Chloride Flush 0.9% 10 Ml Syringe IVP Not Given 0100,0900,1700 UYEN - Lab Result Fish Bone Diagrams: 09/27/20 05:26 09/27/20 05:26 - Additional Planning My Orders: My Active Orders 09/26/20 10:00 Budesonide [Pulmicort] 0.5 mg INH RTBID Formoterol Fumarate [Perforomist] 20 mcg INH RTBID 09/27/20 RBC, LEUKOREDUCED Stat TYPE AND SCREEN Stat 09/27/20 06:54 Transfuse RBCs Leukoreduced [RC] .ONCE TYPE AND SCREEN Stat 09/27/20 08:00 ABDOMEN/PELVIS W/WO [CT] Routine 09/28/20 05:00 BMP - BASIC METABOLIC PANEL [CHEM] DAILYLAB CBC - COMP BLD CT W/AUTO DIFF [HEME] DAILYLAB Subjective - Subjective Patient Reports: Other (Patient was just waking up at time of exam. She reported sleeping well throughout the night. She denied any chest pain, dyspnea, abdominal pain, nausea, vomiting, fever or chills. She denied any pain in her right leg.) Objective Vital Signs: Vital Signs - 24 hr 09/26/20 09/26/20 09/26/20 07:36 14:41 14:45 Temperature 36.8 C Heart Rate 91 80 81 Heart Rate [ Radial] Respiratory 22 10 L 10 L Rate Blood Pressure 115/64 115/64 Blood Pressure [Right Brachial artery] O2 Saturation 96 97 09/26/20 09/26/20 09/26/20 14:50 14:55 15:00 Temperature 36.8 C 36.8 C Heart Rate 81 80 78 Heart Rate [ Radial] Respiratory 11 L 11 L 11 L Rate Blood Pressure 113/66 111/69 105/65 Blood Pressure [Right Brachial artery] O2 Saturation 96 96 96 09/26/20 09/26/20 09/26/20 15:15 15:30 15:45 Temperature 36.5 C 36.5 C 36.5 C Heart Rate 85 81 86 Heart Rate [ Radial] Respiratory 12 13 14 Rate Blood Pressure 117/75 132/84 H 111/62 Blood Pressure [Right Brachial artery] O2 Saturation 94 94 97 09/26/20 09/26/20 09/26/20 16:00 16:12 16:30 Temperature 37.0 C 37.0 C Heart Rate 80 Heart Rate [ 83 81 Radial] Respiratory 18 14 17 Rate Blood Pressure Blood Pressure 129/62 124/70 [Right Brachial artery] O2 Saturation 95 95 09/26/20 09/26/20 09/26/20 17:30 18:30 19:44 Temperature 37.1 C 37.1 C 37.1 C Heart Rate Heart Rate [ 94 88 92 Radial] Respiratory 18 18 18 Rate Blood Pressure Blood Pressure 119/58 L 106/83 H 133/68 H [Right Brachial artery] O2 Saturation 94 97 97 09/26/20 09/26/20 09/27/20 21:30 22:07 00:32 Temperature 37.7 C 37.2 C Heart Rate 94 Heart Rate [ 106 H 93 Radial] Respiratory 18 18 16 Rate Blood Pressure Blood Pressure 142/70 H 148/66 H [Right Brachial artery] O2 Saturation 92 94 09/27/20 05:00 Temperature 37.3 C Heart Rate Heart Rate [ 79 Radial] Respiratory 16 Rate Blood Pressure Blood Pressure 129/64 [Right Brachial artery] O2 Saturation 94 Oxygen O2 Source CPAP I&O (Last 24 Hrs): Intake and Output Totals x24h 09/25/20 09/26/20 09/27/20 23:59 23:59 23:59 Intake Total 1936.25 2083 1050 Output Total 500 1160 250 Balance 1436.25 923 800 General: Alert, Oriented x3, Cooperative, No acute distress HEENT: PERRLA, EOMI Neck: No JVD Neuro: Alert, Oriented Times 3 Cardiovascular: Regular rate, Normal S1, Normal S2 Respiratory: Chest non-tender, No respiratory distress, Breath sounds nml Abdomen: Normal bowel sounds, Soft Extremities: No clubbing, No cyanosis, Other (Patient moving all extremities. She can distinguish touch. Right leg is currently wrapped 10 bandage following surgery yesterday.) Skin: No rashes, No breakdown - Results Results: Laboratory Results WBC 9.1 x10^3/uL (4.8-10.8) 09/27/20 05:26 RBC 2.67 10^6/uL (4.20-5.40) L 09/27/20 05:26 Hgb 8.3 g/dL (12.0-16.0) L 09/27/20 05:26 Hct 25.5 % (37.0-47.0) L 09/27/20 05:26 MCV 95.5 fL (81.0-99.0) 09/27/20 05:26 MCH 31.1 pg (27.0-31.0) H 09/27/20 05:26 MCHC 32.5 g/dL (32.0-36.0) 09/27/20 05:26 RDW 12.8 % (12.0-15.0) 09/27/20 05:26 Plt Count 134 10^3/uL (130-450) 09/27/20 05:26 MPV 11.8 fL (7.9-10.8) H 09/27/20 05:26 Neut # (Auto) 6.6 10^3/uL (1.5-6.6) 09/27/20 05:26 Lymph # (Auto) 1.5 10^3/uL (1.5-3.5) 09/27/20 05:26 [place] # (Auto) 0.9 10^3/uL (0.0-1.0) 09/27/20 05:26 Eos # (Auto) 0.0 10^3/uL (0.0-0.7) 09/27/20 05:26 Baso # (Auto) 0.0 10^3/uL (0.0-0.1) 09/27/20 05:26 Absolute Nucleated RBC 0.00 x10^3/uL 09/27/20 05:26 Nucleated RBC % 0.0 /100WBC 09/27/20 05:26 PT 12.6 secs (9.9-12.6) 09/25/20 08:51 INR 1.1 (0.8-1.2) 09/25/20 08:51 Sodium 139 mmol/L (135-145) 09/27/20 05:26 Potassium 3.9 mmol/L (3.5-5.0) 09/27/20 05:26 Chloride 108 mmol/L (101-111) 09/27/20 05:26 Carbon Dioxide 24 mmol/L (21-32) 09/27/20 05:26 Anion Gap 7.0 (6-13) 09/27/20 05:26 BUN 16 mg/dL (6-20) 09/27/20 05:26 Creatinine 1.0 mg/dL (0.4-1.0) 09/27/20 05:26 Estimated GFR (MDRD) 55 (>89) L 09/27/20 05:26 Glucose 119 mg/dL (70-100) H 09/27/20 05:26 Calcium 7.6 mg/dL (8.5-10.3) L 09/27/20 05:26 Total Bilirubin 0.5 mg/dL (0.2-1.0) 09/27/20 05:26 AST 33 IU/L (10-42) 09/27/20 05:26 ALT 17 IU/L (10-60) 09/27/20 05:26 Alkaline Phosphatase 36 IU/L (42-121) L 09/27/20 05:26 Total Protein 5.0 g/dL (6.7-8.2) L 09/27/20 05:26 Albumin 2.6 g/dL (3.2-5.5) L 09/27/20 05:26 Globulin 2.4 g/dL (2.1-4.2) 09/27/20 05:26 Albumin/Globulin Ratio 1.1 (1.0-2.2) 09/27/20 05:26 Lipase 25 U/L (22-51) 09/25/20 02:40 TSH 0.58 uIU/mL (0.34-5.60) 09/26/20 04:35 Urine Color YELLOW 09/25/20 03:40 Urine Clarity HAZY (CLEAR) 09/25/20 03:40 Urine pH 6.5 PH (5.0-7.5) 09/25/20 03:40 Ur Specific [place] 1.020 (1.002-1.030) 09/25/20 03:40 Urine Protein NEGATIVE mg/dL (NEGATIVE) 09/25/20 03:40 Urine Glucose (UA) NEGATIVE mg/dL (NEGATIVE) 09/25/20 03:40 Urine Ketones NEGATIVE mg/dL (NEGATIVE) 09/25/20 03:40 Urine Occult Blood NEGATIVE (NEGATIVE) 09/25/20 03:40 Urine Nitrite POSITIVE (NEGATIVE) H 09/25/20 03:40 Urine Bilirubin NEGATIVE (NEGATIVE) 09/25/20 03:40 Urine Urobilinogen 0.2 (NORMAL) E.U./dL (NORMAL) 09/25/20 03:40 Ur Leukocyte Esterase MODERATE (NEGATIVE) H 09/25/20 03:40 Urine RBC 0-5 /HPF (0-5) 09/25/20 03:40 Urine WBC >25 /HPF (0-5) H 09/25/20 03:40 Ur Squamous Epith Cells FEW Squamous (<= Few) 09/25/20 03:40 Urine Bacteria Many /HPF (None Seen) H 09/25/20 03:40 Ur Microscopic Review INDICATED 09/25/20 03:40 Urine Culture Comments INDICATED 09/25/20 03:40 Nasal Adenovirus (PCR) NOT DETECTED 09/25/20 02:42 Nasal B. parapertussis DNA (PCR) NOT DETECTED 09/25/20 02:42 Nasal Coronavir 229E PCR NOT DETECTED 09/25/20 02:42 Nasal Coronavir HKU1 PCR NOT DETECTED 09/25/20 02:42 Nasal Coronavir NL63 PCR NOT DETECTED 09/25/20 02:42 Nasal Coronavir OC43 PCR NOT DETECTED 09/25/20 02:42 Nasal Enterovir/Rhinovir PCR NOT DETECTED 09/25/20 02:42 Nasal Influenza B PCR NOT DETECTED 09/25/20 02:42 Nasal Influenza A PCR NOT DETECTED 09/25/20 02:42 Nasal Parainfluen 1 PCR NOT DETECTED 09/25/20 02:42 Nasal Parainfluen 2 PCR NOT DETECTED 09/25/20 02:42 Nasal Parainfluen 3 PCR NOT DETECTED 09/25/20 02:42 Nasal Parainfluen 4 PCR NOT DETECTED 09/25/20 02:42 Nasal RSV (PCR) NOT DETECTED 09/25/20 02:42 Nasal B.pertussis DNA PCR NOT DETECTED 09/25/20 02:42 Nasal C.pneumoniae (PCR) NOT DETECTED 09/25/20 02:42 [place] Human Metapneumo PCR NOT DETECTED 09/25/20 02:42 Nasal M.pneumoniae (PCR) NOT DETECTED 09/25/20 02:42 Nasal SARS-CoV-2 (PCR) NOT DETECTED 09/25/20 02:42 - Procedures Procedures: Procedures COLONOSCOPY (11/18/14) ABX Reporting Has patient been on IV antibiotics over the past 48 hours?: Yes
[2020-09-27] MEDS: FORMOTEROL FUMARATE NEB 20 MCG/2 ML INH SCH ×2 (07:40→18:00)
[2020-09-27] MEDS: IPRATROPIUM/ALBUTEROL 3 ML NEB INH PRN ×3 (07:40→18:00)
[2020-09-27] MEDS: BUDESONIDE 0.5 MG/2 ML NEB INH SCH ×2 (07:40→18:00)
[2020-09-27] MEDS: cefTRIAXone 1 GM in SODIUM CHLORIDE 0.9% MINIBAG 100 ML IV SCH (09:26)
[2020-09-27] MEDS: atenoloL 25 MG TABLET PO SCH ×2 (09:52→21:10)
[2020-09-27] MEDS: SACCHAROMYCES BOULARDII 250 MG CAPSULE PO SCH ×2 (09:52→18:27)
[2020-09-27] MEDS: ASPIRIN EC 81 MG TABLET PO SCH ×2 (09:52→21:10)
[2020-09-27] MEDS: LEVOTHYROXINE 88 MCG TABLET PO SCH (09:52)
[2020-09-27] MEDS: CELECOXIB 100 MG CAPSULE PO SCH ×2 (09:52→21:10)
[2020-09-27] MEDS: ethyl alcohoL 62% SWAB AMPULE NAS SCH ×2 (09:52→21:11)
[2020-09-27] MEDS: SODIUM CHLORIDE 0.9% 1,000 ML IV SCH (09:57)
--- NOTE | 2020-09-27 11:10 | PROVIDER PROGRESS NOTE ---
Subjective - General Admit Date: 09/25/20 Procedure Date: 09/26/20 Post Op Days: 1 Procedure Performed: Open reduction internal fixation bicondylar tibial plateau fracture right k - Review of Systems Wound/Incisions: positive: Dressing dry and intact General: positive: No symptoms Objective - Patient Data Vital Signs: Vital Signs x48h Temp Pulse Pulse Resp BP BP BP 09/27/20 10:37 37.3 C 99 16 117/58 L 09/27/20 10:31 37.3 C 97 16 114/60 09/27/20 10:17 37.2 C 96 16 112/58 L 09/27/20 08:01 36.6 C 79 16 105/62 09/27/20 07:40 82 18 09/27/20 05:00 37.3 C 79 16 129/64 Pulse Ox 09/27/20 10:37 09/27/20 10:31 09/27/20 10:17 09/27/20 08:01 93 09/27/20 07:40 09/27/20 05:00 94 Weight: Weight 09/25/20 09/26/20 09/27/20 23:59 23:59 23:59 Weight (kg) 81.5 kg 81.5 kg Intake & Output: Intake and Output Totals x24h 09/25/20 09/26/20 09/27/20 23:59 23:59 23:59 Intake Total 1936.25 2083 1875 Output Total 500 1160 700 Balance 1436.25 923 1175 - Lab Results Lab Results: 09/27/20 05:26 09/27/20 05:26 Other Lab Results: Lab Results x24hrs 09/27/20 09/27/20 09/27/20 Range/Units 07:39 05:26 05:26 WBC (4.8-10.8) x10^3/uL RBC (4.20-5.40) 10^6/uL Hgb (12.0-16.0) g/dL Hct (37.0-47.0) % MCV (81.0-99.0) fL MCH (27.0-31.0) pg MCHC (32.0-36.0) g/dL RDW (12.0-15.0) % Plt Count (130-450) 10^3/uL MPV (7.9-10.8) fL Neut # (Auto) (1.5-6.6) 10^3/uL Lymph # (Auto) (1.5-3.5) 10^3/uL [place] # (Auto) (0.0-1.0) 10^3/uL Eos # (Auto) (0.0-0.7) 10^3/uL Baso # (Auto) (0.0-0.1) 10^3/uL Absolute Nucleated RBC x10^3/uL Nucleated RBC % /100WBC Sodium 139 (135-145) mmol/L Potassium 3.9 (3.5-5.0) mmol/L Chloride 108 (101-111) mmol/L Carbon Dioxide 24 (21-32) mmol/L Anion Gap 7.0 (6-13) BUN 16 (6-20) mg/dL Creatinine 1.0 (0.4-1.0) mg/dL Estimated GFR (MDRD) 55 L (>89) Glucose 119 H (70-100) mg/dL Calcium 7.6 L (8.5-10.3) mg/dL Total Bilirubin 0.5 (0.2-1.0) mg/dL AST 33 (10-42) IU/L ALT 17 (10-60) IU/L Alkaline Phosphatase 36 L (42-121) IU/L Total Protein 5.0 L (6.7-8.2) g/dL Albumin 2.6 L (3.2-5.5) g/dL Globulin 2.4 (2.1-4.2) g/dL Albumin/Globulin Ratio 1.1 (1.0-2.2) Blood Type O POSITIVE Blood Type Recheck O POSITIVE Antibody Screen NEGATIVE Crossmatch IS Only See Detail 09/27/20 Range/Units 05:26 WBC 9.1 (4.8-10.8) x10^3/uL RBC 2.67 L (4.20-5.40) 10^6/uL Hgb 8.3 L (12.0-16.0) g/dL Hct 25.5 L (37.0-47.0) % MCV 95.5 (81.0-99.0) fL MCH 31.1 H (27.0-31.0) pg MCHC 32.5 (32.0-36.0) g/dL RDW 12.8 (12.0-15.0) % Plt Count 134 (130-450) 10^3/uL MPV 11.8 H (7.9-10.8) fL Neut # (Auto) 6.6 (1.5-6.6) 10^3/uL Lymph # (Auto) 1.5 (1.5-3.5) 10^3/uL [place] # (Auto) 0.9 (0.0-1.0) 10^3/uL Eos # (Auto) 0.0 (0.0-0.7) 10^3/uL Baso # (Auto) 0.0 (0.0-0.1) 10^3/uL Absolute Nucleated RBC 0.00 x10^3/uL Nucleated RBC % 0.0 /100WBC Sodium (135-145) mmol/L Potassium (3.5-5.0) mmol/L Chloride (101-111) mmol/L Carbon Dioxide (21-32) mmol/L Anion Gap (6-13) BUN (6-20) mg/dL Creatinine (0.4-1.0) mg/dL Estimated GFR (MDRD) (>89) Glucose (70-100) mg/dL Calcium (8.5-10.3) mg/dL Total Bilirubin (0.2-1.0) mg/dL AST (10-42) IU/L ALT (10-60) IU/L Alkaline Phosphatase (42-121) IU/L Total Protein (6.7-8.2) g/dL Albumin (3.2-5.5) g/dL Globulin (2.1-4.2) g/dL Albumin/Globulin Ratio (1.0-2.2) Blood Type Blood Type Recheck Antibody Screen Crossmatch IS Only - Current Medications Current Medications: Current Medications Generic Name Dose Route Start Last Admin Trade Name Freq PRN Reason Stop Dose Admin Acetaminophen 1,000 mg 09/26/20 18:00 09/27/20 06:28 Acetaminophen 500 Mg Tablet PO 1,000 mg Q6HR UYEN Administration Albuterol/Ipratropium 3 ml 09/25/20 08:36 09/27/20 07:40 Ipratropium/Albuterol 3 Ml Neb INH 3 ml RTQID PRN Administration Shortness of Air/Wheezing Alcohol 1 amp 09/26/20 21:00 09/27/20 09:52 Ethyl Alcohol 62% Swab Ampule CARLOS 1 amp BID UYEN Administration Aspirin 81 mg 09/26/20 21:00 09/27/20 09:52 Aspirin Ec 81 Mg Tablet PO 81 mg BID UYEN Administration Atenolol 50 mg 09/25/20 21:00 09/27/20 09:52 Atenolol 25 Mg Tablet PO 50 mg BID UYEN Administration Budesonide 0.5 mg 09/26/20 10:00 09/27/20 07:40 Budesonide 0.5 Mg/2 Ml Neb INH 0.5 mg RTBID UYEN Administration Celecoxib 200 mg 09/26/20 21:00 09/27/20 09:52 Celecoxib 100 Mg Capsule PO 200 mg BID UYEN Administration Cyclobenzaprine HCl 10 mg 09/25/20 03:07 09/25/20 10:20 Cyclobenzaprine 10 Mg Tablet PO 10 mg TID PRN Administration Spasms Formoterol Fumarate 20 mcg 09/26/20 10:00 09/27/20 07:40 Formoterol Fumarate Neb 20 Mcg/2 Ml INH 20 mcg RTBID UYEN Administration Sodium Chloride 1,000 mls @ 75 mls/hr 09/25/20 04:00 09/27/20 09:57 Normal Saline 0.9% IV Not Given .[id number] UYEN Ceftriaxone Sodium 1 gm/ 100 mls @ 200 mls/hr 09/25/20 09:00 09/27/20 10:47 Sodium Chloride IV Infused DAILY UYEN Infusion Potassium Chloride/Sodium Chloride 1,000 mls @ 100 mls/hr 09/26/20 16:00 09/27/20 07:38 Normal Saline 0.9% W/20 Meq Kcl IV 0 mls/hr .Q10H UYEN Infusion Levothyroxine Sodium 88 mcg 09/26/20 09:00 09/27/20 09:52 Levothyroxine 88 Mcg Tablet PO 88 mcg DAILY UYEN Administration Morphine Sulfate 2 mg 09/26/20 14:42 09/27/20 06:28 Morphine 2 Mg/Ml Carpuject IVP 2 mg Q2HR PRN Administration PAIN Oxycodone HCl 5 mg 09/26/20 14:42 09/27/20 10:47 Oxycodone 5 Mg Tablet PO 5 mg Q6HR PRN Administration PAIN Pantoprazole Sodium 40 mg 09/25/20 07:00 09/27/20 06:28 Pantoprazole 40 Mg Tablet PO 40 mg QDAC UYEN Administration Saccharomyces Boulardii 250 mg 09/25/20 17:00 09/27/20 09:52 Saccharomyces Boulardii 250 Mg Capsule PO 250 mg BIDWM UYEN Administration Sodium Chloride 10 ml 09/26/20 17:00 09/27/20 09:56 Sodium Chloride Flush 0.9% 10 Ml Syringe IVP Not Given 0100,0900,1700 UYEN - Physical Exam Wound/Incisions: positive: Dressing dry and intact General Appearance: positive: No acute distress Respiratory: positive: No respiratory distress Cardiovascular: negative: Other (No chest pain) Neurologic/Psychiatric: positive: Oriented x3 Comments/Other: Pain control is very good following surgery. Surgery was long and complex and she is doing well. She has no neurologic deficit to right foot. Her foot is warm, good capillary refill. Impression/Plan - Problem List Problem List: Status post open reduction internal fixation of a Schatzker type bicondylar tibial plateau fracture right knee. The plan is nonweightbearing for 2 to 3 months right leg. She is currently in a long-leg splint and eventually this will be converted to a long-leg brace that allows motion to right knee. She had hemoglobin of 8.3 and was given 1 unit of packed red blood cells. She is on aspirin 81 mg twice daily for deep venous thrombosis prophylaxis.
--- NOTE | 2020-09-27 11:36 | CT Report ---
PROCEDURE: IVP INDICATIONS: BLADDER MASS CONTRAST: IV CONTRAST: Optiray 320 ml: 140 PO CONTRAST: *NO PO CONTRAST TECHNIQUE: After the administration of intravenous contrast, 5 mm thick sections acquired from the diaphragms to the symphysis. 5 mm thick coronal and sagittal reformats were acquired. For radiation dose reducti on, the following was used: automated exposure control, adjustment of mA and/or kV according to michael ent size. COMPARISON: Correlation is made with retroperitoneal ultrasound, 09/25/2020. A prior CT dated 08/07/19 13 is not available for review at the time of this dictation. FINDINGS: Image quality: Excellent. Lung bases: Emphysematous changes are seen at the lung bases. Mild presumed atelectasis can be seen d ependently at both lung bases. Heart size is normal. A small hiatal hernia is incidentally noted. Urinary system: Both kidneys are normal in size and enhancement. There is a water density cyst seen at the superior pole of the left kidney that measures 7 mm. Contrast-filled renal calyces are normal in morphology. Contrast filled portions of both ureters are normal in caliber. In this patient with this given history, scrutiny is given to the bladder wall. On this study, no foc al bladder wall thickening can be seen. There is mass effect seen upon the posterior left aspect of t he bladder from the patient's uterus. The uterus is not enlarged. A Anthony catheter is seen in place. Solid organs: Liver and spleen are normal in size and enhancement. Diffuse fatty liver infiltration can be seen. Gallbladder wall does not appear thickened. Biliary system is non dilated. Pancre as enhances normally. There is an apparent 1.6 cm left adrenal nodule seen. Generalized thickening is seen of the adrenal g lands. Peritoneum and bowel: Bowel loops demonstrate normal wall thickness and caliber. No free fluid or a ir. A normal appendix is incidentally noted. Diverticulosis can be seen, without stephenie findings of active diverticulitis. Nodes and vessels: No retroperitoneal or mesenteric adenopathy by size criteria. Aorta and inferior vena cava are normal in size. Atherosclerotic calcification is seen. Abdominal wall: A mild fat-containing periumbilical hernia is seen. Pelvis: No pathologic free pelvic fluid. No inguinal hernias or adenopathy. No adnexal masses are seen on either side. Bones: No suspicious bony lesions. No vertebral body compression fractures. There is focal L5-S1 d egenerative change. Milder degenerative changes are seen elsewhere. Mild dextroconvex scoliotic curv ature is seen. IMPRESSION: No stephenie bladder mass is identified. There is an apparent 1.6 cm left adrenal nodule seen. However, this may be artifactual in this patien t with a background of thickened adrenal glands. Incidental note is made of: Centrilobular emphysema is changed Presumed dependent atelectasis Small hiatal hernia Fatty liver infiltration Simple left renal cyst Small fat-containing peribuccal hernia Normal appendix Diverticulosis is seen, yet without findings of active diverticulitis. Focal L5-S1 degenerative change Dextroconvex scoliotic curvature Reviewed by: Dm Noriega MD on 09/27/2020 10:34 AM [place] Approved by: Dm Noriega MD on 09/27/2020 10:34 AM [facility] Station ID: [id number]
[2020-09-28] MEDS: ACETAMINOPHEN 500 MG TABLET PO SCH ×5 (00:26→23:38)
[2020-09-28] MEDS: SODIUM CHLORIDE FLUSH 0.9% 10 ML SYRINGE IVP SCH ×4 (00:27→23:39)
[2020-09-28] MEDS: NS W/20 MEQ KCL 1,000 ML IV SCH ×2 (04:16→15:03)
[2020-09-28 05:10] LABS: BASOPHILS % (AUTO) 0.4 %; EOSINOPHILS # (AUTO) 0.2 10^3/uL (0.0-0.7); EOSINOPHILS % (AUTO) 2.2 %; HCT - HEMATOCRIT 30.3 % (37.0-47.0); HGB - HEMOGLOBIN 9.8 g/dL (12.0-16.0); LYMPHOCYTES # (AUTO) 1.3 10^3/uL (1.5-3.5); MEAN CORPUSCULAR HEMOGLOBIN 30.2 pg (27.0-31.0); MEAN CORPUSCULAR HGB CONC 32.3 g/dL (32.0-36.0); MEAN CORPUSCULAR VOLUME 93.2 fL (81.0-99.0); MEAN PLATELET VOLUME 12.3 fL (7.9-10.8); MONOCYTES # (AUTO) 0.7 10^3/uL (0.0-1.0); MONOCYTES % (AUTO) 7.8 %; NEUTROPHILS # (AUTO) 6.2 10^3/uL (1.5-6.6); NEUTROPHILS % (AUTO) 74.2 %; PLT - PLATELET COUNT 147 10^3/uL (130-450); RED BLOOD COUNT 3.25 10^6/uL (4.20-5.40); RED CELL DISTRIBUTION WIDTH 14.2 % (12.0-15.0); WHITE BLOOD COUNT 8.3 x10^3/uL (4.8-10.8)
[2020-09-28 05:25] LABS: CALCIUM 8.1 mg/dL (8.5-10.3); CREATININE 0.8 mg/dL (0.4-1.0); POTASSIUM 3.9 mmol/L (3.5-5.0)
[2020-09-28] MEDS: PANTOPRAZOLE 40 MG TABLET PO SCH (06:48)
--- NOTE | 2020-09-28 07:13 | PROVIDER PROGRESS NOTE ---
Assessment/Plan - Problem List (1) Tibial plateau fracture, right Qualifiers: Encounter type: initial encounter Fracture type: closed Qualified Code(s): S82.141A - Displaced bicondylar fracture of right tibia, initial encounter for closed fracture Assessment/Plan: Patient is postop day #2 for Open reduction internal fixation of right tibial plateau fracture Pain management weight Tylenol, [place] and oral Dilaudid. Orthopedics following. The recommendation is for the patient to be nonweightbearing on the right leg for 8 weeks Patient's family is deliberating on a facility they would like her to go to up on discharge. Once decided upon case management with help facilitate the process. (3) Hypertension Assessment/Plan: On Atenolol and Losartan/HCTZ. (4) Hyperlipidemia Assessment/Plan: On atorvastatin 20 mg p.o. daily. (5) Hypothyroidism Assessment/Plan: On Synthroid 88 mcg p.o. daily. (6) Obstructive sleep apnea on CPAP Assessment/Plan: Patient uses CPAP at night. (8) UTI (urinary tract infection) Assessment/Plan: Pansensitive E. coli grew in urine culture. Rocephin discontinued and patient started on Macrobid 100mg po bid X 4days. (9) Anemia Assessment/Plan: Secondary to acute blood loss related to surgery. Patient was given 1 unit of packed red blood cells yesterday. Hemoglobin today is 9.8. We will continue to monitor. (10) Bladder mass Assessment/Plan: CT scan of the abdomen/pelvis with contrast and with specific emphasis on the bladder was negative for any mass. It is likely that what was noted on ultrasound was due to mass effect on the postero-lateral aspect of the bladder due to the patient's uterus - Current Meds Current Meds: Current Medications Generic Name Dose Route Start Last Admin Trade Name Freq PRN Reason Stop Dose Admin Acetaminophen 1,000 mg 09/26/20 18:00 09/28/20 06:48 Acetaminophen 500 Mg Tablet PO 1,000 mg Q6HR UYEN Administration Albuterol 2.5 mg 09/25/20 08:37 09/28/20 00:10 Albuterol Neb 2.5 Mg/3 Ml INH 2.5 mg RTQ4H PRN Administration Wheezing Albuterol/Ipratropium 3 ml 09/25/20 08:36 09/27/20 18:00 Ipratropium/Albuterol 3 Ml Neb INH 3 ml RTQID PRN Administration Shortness of Air/Wheezing Alcohol 1 amp 09/26/20 21:00 09/27/20 21:11 Ethyl Alcohol 62% Swab Ampule CARLOS 1 amp BID UYEN Administration Aspirin 81 mg 09/26/20 21:00 09/27/20 21:10 Aspirin Ec 81 Mg Tablet PO 81 mg BID UYEN Administration Atenolol 50 mg 09/25/20 21:00 09/27/20 21:10 Atenolol 25 Mg Tablet PO 50 mg BID UYEN Administration Budesonide 0.5 mg 09/26/20 10:00 09/27/20 18:00 Budesonide 0.5 Mg/2 Ml Neb INH 0.5 mg RTBID UYEN Administration Celecoxib 200 mg 09/26/20 21:00 09/27/20 21:10 Celecoxib 100 Mg Capsule PO 200 mg BID UYEN Administration Cyclobenzaprine HCl 10 mg 09/25/20 03:07 09/25/20 10:20 Cyclobenzaprine 10 Mg Tablet PO 10 mg TID PRN Administration Spasms Formoterol Fumarate 20 mcg 09/26/20 10:00 09/27/20 18:00 Formoterol Fumarate Neb 20 Mcg/2 Ml INH 20 mcg RTBID UYEN Administration Ceftriaxone Sodium 1 gm/ 100 mls @ 200 mls/hr 09/25/20 09:00 09/27/20 10:47 Sodium Chloride IV Infused DAILY UYEN Infusion Potassium Chloride/Sodium Chloride 1,000 mls @ 100 mls/hr 09/26/20 16:00 09/28/20 04:16 Normal Saline 0.9% W/20 Meq Kcl IV 100 mls/hr .Q10H UYEN Administration Levothyroxine Sodium 88 mcg 09/26/20 09:00 09/27/20 09:52 Levothyroxine 88 Mcg Tablet PO 88 mcg DAILY UYEN Administration Morphine Sulfate 2 mg 09/26/20 14:42 09/27/20 14:33 Morphine 2 Mg/Ml Carpuject IVP 2 mg Q2HR PRN Administration PAIN Oxycodone HCl 5 mg 09/26/20 14:42 09/27/20 10:47 Oxycodone 5 Mg Tablet PO 5 mg Q6HR PRN Administration PAIN Pantoprazole Sodium 40 mg 09/25/20 07:00 09/28/20 06:48 Pantoprazole 40 Mg Tablet PO 40 mg QDAC UYEN Administration Saccharomyces Boulardii 250 mg 09/25/20 17:00 09/27/20 18:27 Saccharomyces Boulardii 250 Mg Capsule PO 250 mg BIDWM UYEN Administration Sodium Chloride 10 ml 09/26/20 17:00 09/28/20 00:27 Sodium Chloride Flush 0.9% 10 Ml Syringe IVP Not Given 0100,0900,1700 UYEN - Lab Result Fish Bone Diagrams: 09/28/20 04:20 09/28/20 04:20 - Additional Planning My Orders: My Active Orders 09/27/20 06:54 Transfuse RBCs Leukoreduced [RC] .ONCE 09/28/20 09:00 Docusate Sodium 250Mg Capsule [Colace 250Mg Capsule] 250 - 500 mg PO DAILY Senna [Senokot] 8.6 - 17.2 mg PO DAILY polyethylene glycoL 3350 [Miralax] 17 gm PO DAILY Subjective - Subjective Patient Reports: Other (Patient resting comfortably in bed. She complained of constipation yesterday but was finally able to have a bowel movement with some laxative. She denied any other complaints.) Objective Vital Signs: Vital Signs - 24 hr 09/27/20 09/27/20 09/27/20 07:40 08:01 10:17 Temperature 36.6 C 37.2 C Heart Rate 82 96 Heart Rate [ Activity] Heart Rate [ 79 Radial] Heart Rate [ Sitting] Heart Rate [ Supine] Respiratory 18 16 16 Rate Blood Pressure 112/58 L Blood Pressure [Activity] Blood Pressure 105/62 [Left Brachial artery] Blood Pressure [Right Brachial artery] Blood Pressure [Sitting] Blood Pressure [Supine] O2 Saturation 93 09/27/20 09/27/20 09/27/20 10:31 10:37 12:14 Temperature 37.3 C 37.3 C 37.3 C Heart Rate 97 99 Heart Rate [ Activity] Heart Rate [ 95 Radial] Heart Rate [ Sitting] Heart Rate [ Supine] Respiratory 16 16 16 Rate Blood Pressure 114/60 117/58 L Blood Pressure [Activity] Blood Pressure [Left Brachial artery] Blood Pressure 116/67 [Right Brachial artery] Blood Pressure [Sitting] Blood Pressure [Supine] O2 Saturation 93 09/27/20 09/27/20 09/27/20 13:05 13:30 14:28 Temperature 37.3 C Heart Rate 92 86 Heart Rate [ 96 Activity] Heart Rate [ Radial] Heart Rate [ 97 Sitting] Heart Rate [ 68 Supine] Respiratory 16 16 Rate Blood Pressure 102/69 Blood Pressure 135/67 H [Activity] Blood Pressure [Left Brachial artery] Blood Pressure [Right Brachial artery] Blood Pressure 130/60 [Sitting] Blood Pressure 119/75 [Supine] O2 Saturation 09/27/20 09/27/20 09/27/20 16:13 18:00 21:00 Temperature 37.2 C 37.1 C Heart Rate 106 H Heart Rate [ Activity] Heart Rate [ 95 106 H Radial] Heart Rate [ Sitting] Heart Rate [ Supine] Respiratory 18 16 18 Rate Blood Pressure Blood Pressure [Activity] Blood Pressure [Left Brachial artery] Blood Pressure 117/69 124/70 [Right Brachial artery] Blood Pressure [Sitting] Blood Pressure [Supine] O2 Saturation 92 90 L 09/27/20 09/28/20 09/28/20 23:55 00:10 05:26 Temperature 37.1 C 36.9 C Heart Rate 93 Heart Rate [ Activity] Heart Rate [ 96 92 Radial] Heart Rate [ Sitting] Heart Rate [ Supine] Respiratory 16 18 16 Rate Blood Pressure Blood Pressure [Activity] Blood Pressure [Left Brachial artery] Blood Pressure 142/76 H 150/93 H [Right Brachial artery] Blood Pressure [Sitting] Blood Pressure [Supine] O2 Saturation 92 94 Oxygen O2 Source Room air I&O (Last 24 Hrs): Intake and Output Totals x24h 09/26/20 09/27/20 09/28/20 23:59 23:59 23:59 Intake Total 2083 3589.667 955 Output Total 1160 2350 825 Balance 923 1239.667 130 General: Alert, Oriented x3 HEENT: PERRLA, EOMI Neck: No JVD Neuro: Alert, Oriented Times 3 Cardiovascular: Regular rate Respiratory: Chest non-tender, No respiratory distress, Breath sounds nml Abdomen: Normal bowel sounds, Soft Extremities: No clubbing, No cyanosis, No edema Skin: No rashes, No breakdown - Results Results: Laboratory Results WBC 8.3 x10^3/uL (4.8-10.8) 09/28/20 04:20 RBC 3.25 10^6/uL (4.20-5.40) L 09/28/20 04:20 Hgb 9.8 g/dL (12.0-16.0) L 09/28/20 04:20 Hct 30.3 % (37.0-47.0) L 09/28/20 04:20 MCV 93.2 fL (81.0-99.0) 09/28/20 04:20 MCH 30.2 pg (27.0-31.0) 09/28/20 04:20 MCHC 32.3 g/dL (32.0-36.0) 09/28/20 04:20 RDW 14.2 % (12.0-15.0) 09/28/20 04:20 Plt Count 147 10^3/uL (130-450) 09/28/20 04:20 MPV 12.3 fL (7.9-10.8) H 09/28/20 04:20 Neut # (Auto) 6.2 10^3/uL (1.5-6.6) 09/28/20 04:20 Lymph # (Auto) 1.3 10^3/uL (1.5-3.5) L 09/28/20 04:20 [place] # (Auto) 0.7 10^3/uL (0.0-1.0) 09/28/20 04:20 Eos # (Auto) 0.2 10^3/uL (0.0-0.7) 09/28/20 04:20 Baso # (Auto) 0.0 10^3/uL (0.0-0.1) 09/28/20 04:20 Absolute Nucleated RBC 0.00 x10^3/uL 09/28/20 04:20 Nucleated RBC % 0.0 /100WBC 09/28/20 04:20 PT 12.6 secs (9.9-12.6) 09/25/20 08:51 INR 1.1 (0.8-1.2) 09/25/20 08:51 Sodium 139 mmol/L (135-145) 09/28/20 04:20 Potassium 3.9 mmol/L (3.5-5.0) 09/28/20 04:20 Chloride 107 mmol/L (101-111) 09/28/20 04:20 Carbon Dioxide 24 mmol/L (21-32) 09/28/20 04:20 Anion Gap 8.0 (6-13) 09/28/20 04:20 BUN 14 mg/dL (6-20) 09/28/20 04:20 Creatinine 0.8 mg/dL (0.4-1.0) 09/28/20 04:20 Estimated GFR (MDRD) 71 (>89) L 09/28/20 04:20 Glucose 117 mg/dL (70-100) H 09/28/20 04:20 Calcium 8.1 mg/dL (8.5-10.3) L 09/28/20 04:20 Total Bilirubin 0.5 mg/dL (0.2-1.0) 09/27/20 05:26 AST 33 IU/L (10-42) 09/27/20 05:26 ALT 17 IU/L (10-60) 09/27/20 05:26 Alkaline Phosphatase 36 IU/L (42-121) L 09/27/20 05:26 Total Protein 5.0 g/dL (6.7-8.2) L 09/27/20 05:26 Albumin 2.6 g/dL (3.2-5.5) L 09/27/20 05:26 Globulin 2.4 g/dL (2.1-4.2) 09/27/20 05:26 Albumin/Globulin Ratio 1.1 (1.0-2.2) 09/27/20 05:26 Lipase 25 U/L (22-51) 09/25/20 02:40 TSH 0.58 uIU/mL (0.34-5.60) 09/26/20 04:35 Urine Color YELLOW 09/25/20 03:40 Urine Clarity HAZY (CLEAR) 09/25/20 03:40 Urine pH 6.5 PH (5.0-7.5) 09/25/20 03:40 Ur Specific [place] 1.020 (1.002-1.030) 09/25/20 03:40 Urine Protein NEGATIVE mg/dL (NEGATIVE) 09/25/20 03:40 Urine Glucose (UA) NEGATIVE mg/dL (NEGATIVE) 09/25/20 03:40 Urine Ketones NEGATIVE mg/dL (NEGATIVE) 09/25/20 03:40 Urine Occult Blood NEGATIVE (NEGATIVE) 09/25/20 03:40 Urine Nitrite POSITIVE (NEGATIVE) H 09/25/20 03:40 Urine Bilirubin NEGATIVE (NEGATIVE) 09/25/20 03:40 Urine Urobilinogen 0.2 (NORMAL) E.U./dL (NORMAL) 09/25/20 03:40 Ur Leukocyte Esterase MODERATE (NEGATIVE) H 09/25/20 03:40 Urine RBC 0-5 /HPF (0-5) 09/25/20 03:40 Urine WBC >25 /HPF (0-5) H 09/25/20 03:40 Ur Squamous Epith Cells FEW Squamous (<= Few) 09/25/20 03:40 Urine Bacteria Many /HPF (None Seen) H 09/25/20 03:40 Ur Microscopic Review INDICATED 09/25/20 03:40 Urine Culture Comments INDICATED 09/25/20 03:40 Nasal Adenovirus (PCR) NOT DETECTED 09/25/20 02:42 Nasal B. parapertussis DNA (PCR) NOT DETECTED 09/25/20 02:42 Nasal Coronavir 229E PCR NOT DETECTED 09/25/20 02:42 Nasal Coronavir HKU1 PCR NOT DETECTED 09/25/20 02:42 Nasal Coronavir NL63 PCR NOT DETECTED 09/25/20 02:42 Nasal Coronavir OC43 PCR NOT DETECTED 09/25/20 02:42 Nasal Enterovir/Rhinovir PCR NOT DETECTED 09/25/20 02:42 Nasal Influenza B PCR NOT DETECTED 09/25/20 02:42 Nasal Influenza A PCR NOT DETECTED 09/25/20 02:42 Nasal Parainfluen 1 PCR NOT DETECTED 09/25/20 02:42 Nasal Parainfluen 2 PCR NOT DETECTED 09/25/20 02:42 Nasal Parainfluen 3 PCR NOT DETECTED 09/25/20 02:42 Nasal Parainfluen 4 PCR NOT DETECTED 09/25/20 02:42 Nasal RSV (PCR) NOT DETECTED 09/25/20 02:42 Nasal B.pertussis DNA PCR NOT DETECTED 09/25/20 02:42 Nasal C.pneumoniae (PCR) NOT DETECTED 09/25/20 02:42 Carlos Human Metapneumo PCR NOT DETECTED 09/25/20 02:42 Nasal M.pneumoniae (PCR) NOT DETECTED 09/25/20 02:42 Nasal SARS-CoV-2 (PCR) NOT DETECTED 09/25/20 02:42 Blood Type O POSITIVE 09/27/20 07:39 Blood Type Recheck O POSITIVE 09/27/20 05:26 Antibody Screen NEGATIVE 09/27/20 07:39 Crossmatch IS Only See Detail 09/27/20 07:39 - Procedures Procedures: Procedures COLONOSCOPY (11/18/14) ABX Reporting Has patient been on IV antibiotics over the past 48 hours?: No
[2020-09-28] MEDS: IPRATROPIUM/ALBUTEROL 3 ML NEB INH PRN ×4 (07:35→20:00)
[2020-09-28] MEDS: BUDESONIDE 0.5 MG/2 ML NEB INH SCH ×2 (07:35→20:00)
[2020-09-28] MEDS: FORMOTEROL FUMARATE NEB 20 MCG/2 ML INH SCH ×2 (07:35→20:00)
[2020-09-28] MEDS: DOCUSATE SODIUM 250 MG CAPSULE PO SCH (08:15)
[2020-09-28] MEDS: SENNA 8.6 MG TABLET PO SCH (08:16)
[2020-09-28] MEDS: polyethylene glycoL 3350 17 GM PACKET PO SCH (08:16)
[2020-09-28] MEDS: ASPIRIN EC 81 MG TABLET PO SCH ×2 (09:31→21:51)
[2020-09-28] MEDS: SACCHAROMYCES BOULARDII 250 MG CAPSULE PO SCH ×2 (09:31→17:06)
[2020-09-28] MEDS: atenoloL 25 MG TABLET PO SCH ×2 (09:31→21:51)
[2020-09-28] MEDS: LEVOTHYROXINE 88 MCG TABLET PO SCH (09:31)
[2020-09-28] MEDS: CELECOXIB 100 MG CAPSULE PO SCH ×2 (09:32→21:50)
[2020-09-28] MEDS: NITROFURANTOIN MACRO 100 MG CAPSULE PO SCH ×2 (09:32→21:51)
[2020-09-28] MEDS: ethyl alcohoL 62% SWAB AMPULE NAS SCH ×2 (09:32→21:51)
--- NOTE | 2020-09-28 11:19 | XRAY Report ---
PROCEDURE: Shoulder 3 View RT INDICATIONS: Fall onto R shoulder before adm TECHNIQUE: 4 views of the shoulder were acquired. COMPARISON: None. FINDINGS: Bones: No fractures or dislocations. No suspicious bony lesions. Visualized ribs appear intact. M ild periarticular osteophyte formation at the acromioclavicular and glenohumeral joints. Soft tissues: No suspicious soft tissue calcifications. IMPRESSION: Osteoarthritis. No acute fracture. No osseous lesion. If symptoms and/or clinical suspic ion for pathology continue, further assessment with repeat plain films, or advanced imaging (e.g., CT , MRI, or bone scan) is recommended for further assessment. Reviewed by: Chantelle Hdz MD on 09/28/2020 10:18 AM [facility] Approved by: Chantelle Hdz MD on 09/28/2020 10:18 AM [facility] Station ID: [id number]
--- NOTE | 2020-09-28 11:45 | PROVIDER PROGRESS NOTE ---
Subjective - General Admit Date: 09/25/20 Procedure Date: 09/26/20 Post Op Days: 2 Procedure Performed: Open reduction internal fixation bicondylar tibial plateau fracture right k - Review of Systems Wound/Incisions: positive: Dressing dry and intact General: positive: No symptoms Objective - Patient Data Vital Signs: Vital Signs x48h Temp Pulse Pulse Resp BP Pulse Ox 09/28/20 11:15 37 C 91 18 157/93 H 95 09/28/20 08:08 36.6 C 97 20 165/89 H 95 09/28/20 07:35 88 18 09/28/20 05:26 36.9 C 92 16 150/93 H 94 Weight: Weight 09/26/20 09/27/20 09/28/20 23:59 23:59 23:59 Weight (kg) 81.5 kg Intake & Output: Intake and Output Totals x24h 09/26/20 09/27/20 09/28/20 23:59 23:59 23:59 Intake Total 2083 3589.667 1395 Output Total 1160 2350 1975 Balance 923 1239.667 -580 - Lab Results Lab Results: 09/28/20 04:20 09/28/20 04:20 Other Lab Results: Lab Results x24hrs 09/28/20 09/28/20 09/27/20 Range/Units 04:20 04:20 07:39 WBC 8.3 (4.8-10.8) x10^3/uL RBC 3.25 L (4.20-5.40) 10^6/uL Hgb 9.8 L (12.0-16.0) g/dL Hct 30.3 L (37.0-47.0) % MCV 93.2 (81.0-99.0) fL MCH 30.2 (27.0-31.0) pg MCHC 32.3 (32.0-36.0) g/dL RDW 14.2 (12.0-15.0) % Plt Count 147 (130-450) 10^3/uL MPV 12.3 H (7.9-10.8) fL Neut # (Auto) 6.2 (1.5-6.6) 10^3/uL Lymph # (Auto) 1.3 L (1.5-3.5) 10^3/uL [place] # (Auto) 0.7 (0.0-1.0) 10^3/uL Eos # (Auto) 0.2 (0.0-0.7) 10^3/uL Baso # (Auto) 0.0 (0.0-0.1) 10^3/uL Absolute Nucleated RBC 0.00 x10^3/uL Nucleated RBC % 0.0 /100WBC Sodium 139 (135-145) mmol/L Potassium 3.9 (3.5-5.0) mmol/L Chloride 107 (101-111) mmol/L Carbon Dioxide 24 (21-32) mmol/L Anion Gap 8.0 (6-13) BUN 14 (6-20) mg/dL Creatinine 0.8 (0.4-1.0) mg/dL Estimated GFR (MDRD) 71 L (>89) Glucose 117 H (70-100) mg/dL Calcium 8.1 L (8.5-10.3) mg/dL Blood Type O POSITIVE Antibody Screen NEGATIVE Crossmatch IS Only See Detail - Current Medications Current Medications: Current Medications Generic Name Dose Route Start Last Admin Trade Name Freq PRN Reason Stop Dose Admin Acetaminophen 1,000 mg 09/26/20 18:00 09/28/20 06:48 Acetaminophen 500 Mg Tablet PO 1,000 mg Q6HR UYEN Administration Albuterol 2.5 mg 09/25/20 08:37 09/28/20 00:10 Albuterol Neb 2.5 Mg/3 Ml INH 2.5 mg RTQ4H PRN Administration Wheezing Albuterol/Ipratropium 3 ml 09/25/20 08:36 09/28/20 07:35 Ipratropium/Albuterol 3 Ml Neb INH 3 ml RTQID PRN Administration Shortness of Air/Wheezing Alcohol 1 amp 09/26/20 21:00 09/28/20 09:32 Ethyl Alcohol 62% Swab Ampule CARLOS 1 amp BID UYEN Administration Aspirin 81 mg 09/26/20 21:00 09/28/20 09:31 Aspirin Ec 81 Mg Tablet PO 81 mg BID UYEN Administration Atenolol 50 mg 09/25/20 21:00 09/28/20 09:31 Atenolol 25 Mg Tablet PO 50 mg BID UYEN Administration Budesonide 0.5 mg 09/26/20 10:00 09/28/20 07:35 Budesonide 0.5 Mg/2 Ml Neb INH 0.5 mg RTBID UYEN Administration Celecoxib 200 mg 09/26/20 21:00 09/28/20 09:32 Celecoxib 100 Mg Capsule PO 200 mg BID UYEN Administration Cyclobenzaprine HCl 10 mg 09/25/20 03:07 09/25/20 10:20 Cyclobenzaprine 10 Mg Tablet PO 10 mg TID PRN Administration Spasms Docusate Sodium 250 - 500 mg 09/28/20 09:00 09/28/20 08:15 Docusate Sodium 250 Mg Capsule PO Not Given DAILY UYEN Formoterol Fumarate 20 mcg 09/26/20 10:00 09/28/20 07:35 Formoterol Fumarate Neb 20 Mcg/2 Ml INH 20 mcg RTBID UYEN Administration Potassium Chloride/Sodium Chloride 1,000 mls @ 100 mls/hr 09/26/20 16:00 09/28/20 04:16 Normal Saline 0.9% W/20 Meq Kcl IV 100 mls/hr .Q10H UYEN Administration Levothyroxine Sodium 88 mcg 09/26/20 09:00 09/28/20 09:31 Levothyroxine 88 Mcg Tablet PO 88 mcg DAILY UYEN Administration Morphine Sulfate 2 mg 09/26/20 14:42 09/27/20 14:33 Morphine 2 Mg/Ml Carpuject IVP 2 mg Q2HR PRN Administration PAIN Nitrofurantoin 100 mg 09/28/20 09:00 09/28/20 09:32 Nitrofurantoin Macro 100 Mg Capsule PO 10/01/20 21:01 100 mg BID UYEN Administration Oxycodone HCl 5 mg 09/26/20 14:42 09/27/20 10:47 Oxycodone 5 Mg Tablet PO 5 mg Q6HR PRN Administration PAIN Pantoprazole Sodium 40 mg 09/25/20 07:00 09/28/20 06:48 Pantoprazole 40 Mg Tablet PO 40 mg QDAC UYEN Administration Polyethylene Glycol 17 gm 09/28/20 09:00 09/28/20 08:16 Polyethylene Glycol 3350 17 Gm Packet PO Not Given DAILY UYEN Saccharomyces Boulardii 250 mg 09/25/20 17:00 09/28/20 09:31 Saccharomyces Boulardii 250 Mg Capsule PO 250 mg BIDWM UYEN Administration Senna 8.6 - 17.2 mg 09/28/20 09:00 09/28/20 08:16 Senna 8.6 Mg Tablet PO Not Given DAILY UYEN Sodium Chloride 10 ml 09/26/20 17:00 09/28/20 08:16 Sodium Chloride Flush 0.9% 10 Ml Syringe IVP Not Given 0100,0900,1700 UYEN - Physical Exam Wound/Incisions: positive: Dressing dry and intact Neurologic/Psychiatric: positive: Oriented x3 Comments/Other: Patient is alert. She states her pain is controlled. She was up with physical therapy yesterday. She is doing better today than yesterday. Her exam shows that her neurovascular remains intact to her right foot. Her foot is warm and she is able to move her toes. Impression/Plan - Problem List Problem List: She is doing well so far following open reduction internal fixation of a complex bicondylar tibial plateau fracture right knee/leg Continue present treatment with nonweightbearing ambulation right leg with walker, physical therapy and Occupational Therapy. I discussed discharge planning with her; I would recommend a custodial facility that is able to bring her back to the orthopedic clinic for follow-up as she has a complicated fracture in the postop evaluation will be important to ensure the best outcome
[2020-09-28] MEDS: oxyCODONE 5 MG TABLET PO PRN ×2 (17:07→23:38)
[2020-09-29] MEDS: NS W/20 MEQ KCL 1,000 ML IV SCH ×2 (01:05→11:04)
[2020-09-29] MEDS: ACETAMINOPHEN 500 MG TABLET PO SCH ×2 (05:52→12:00)
[2020-09-29] MEDS: oxyCODONE 5 MG TABLET PO PRN ×2 (05:52→15:06)
[2020-09-29] MEDS: PANTOPRAZOLE 40 MG TABLET PO SCH (05:53)
[2020-09-29] MEDS: BUDESONIDE 0.5 MG/2 ML NEB INH SCH (07:38)
[2020-09-29] MEDS: IPRATROPIUM/ALBUTEROL 3 ML NEB INH PRN ×3 (07:38→14:26)
[2020-09-29] MEDS: FORMOTEROL FUMARATE NEB 20 MCG/2 ML INH SCH (07:38)
--- NOTE | 2020-09-29 07:45 | PROVIDER PROGRESS NOTE ---
Subjective - Prog Note Date Prog Note Date: 09/29/20 Prog Note Time: 07:41 - Subjective Pt reports feeling: Improved Subjective: Patient is a 69-year-old female with COPD, hypertension and GERD who is postop day 3 from right tibia ORIF after a S[place]zche grade 6 tibial plateau fracture. Patient denies fevers chills, chest pain shortness of breath reports Pain well controlled, denies any numbness or tingling. Dressing is clean and dry.Patient status remains nonweightbearing. Objective - Vital Signs/Intake & Output Reviewed Vital Signs: Yes Vital Signs: Vital Signs x48h Temp Pulse Resp BP Pulse Ox 09/29/20 06:03 37.1 C 81 14 146/79 H 98 09/29/20 01:26 37.5 C 90 17 165/87 H 97 Intake & Output: Intake & Output 09/26/20 09/27/20 09/28/20 09/29/20 23:59 23:59 23:59 23:59 Intake Total 2083 3589.667 2915 1000 Output Total 1160 2350 4875 800 Balance 923 1239.667 -1960 200 - Objective General Appearance: positive: No acute distress Eyes Bilateral: positive: Normal inspection Respiratory: negative: No respiratory distress Cardiovascular: positive: Regular rate & rhythm Abdomen: positive: Non-tender Skin: positive: Color nml, Warm, Dry Extremities: negative: Calf tenderness Neurologic/Psychiatric: positive: Oriented x3, Mood/affect nml - Lab Results Fish Bones: 09/28/20 04:20 09/28/20 04:20 Assessment/Plan - Problem List (1) Tibia/fibula fracture Impression: Patient is a 69-year-old female postop day 3 right tibia ORIF after grade 6 tibial plateau fracture.Patient status is nonweightbearing For minimum 6 to 8 weeks. Patient can get gentle range of motion physical therapy.Patient reports pain is well controlled denies nausea numbness tingling. Initial dressing check can be done on postop day 5 with no change.Patient needs Follow-up in clinic by postop day 14 or sooner. Qualifiers: Encounter type: initial encounter Fracture type: closed Laterality: right Qualified Code(s): S82.201A - Unspecified fracture of shaft of right tibia, initial encounter for closed fracture; S82.401A - Unspecified fracture of shaft of right fibula, initial encounter for closed fracture
[2020-09-29 07:54] LABS: BASOPHILS % (AUTO) 0.4 %; EOSINOPHILS # (AUTO) 0.3 10^3/uL (0.0-0.7); EOSINOPHILS % (AUTO) 4.2 %; HCT - HEMATOCRIT 30.5 % (37.0-47.0); HGB - HEMOGLOBIN 9.9 g/dL (12.0-16.0); LYMPHOCYTES # (AUTO) 1.2 10^3/uL (1.5-3.5); LYMPHOCYTES % (AUTO) 16.7 %; MEAN CORPUSCULAR HEMOGLOBIN 29.9 pg (27.0-31.0); MEAN CORPUSCULAR HGB CONC 32.5 g/dL (32.0-36.0); MEAN CORPUSCULAR VOLUME 92.1 fL (81.0-99.0); MEAN PLATELET VOLUME 10.9 fL (7.9-10.8); MONOCYTES # (AUTO) 0.6 10^3/uL (0.0-1.0); MONOCYTES % (AUTO) 7.5 %; NEUTROPHILS # (AUTO) 5.3 10^3/uL (1.5-6.6); NEUTROPHILS % (AUTO) 70.8 %; PLT - PLATELET COUNT 196 10^3/uL (130-450); RED BLOOD COUNT 3.31 10^6/uL (4.20-5.40); RED CELL DISTRIBUTION WIDTH 13.9 % (12.0-15.0); WHITE BLOOD COUNT 7.4 x10^3/uL (4.8-10.8)
[2020-09-29 08:04] LABS: CALCIUM 8.2 mg/dL (8.5-10.3); CREATININE 0.7 mg/dL (0.4-1.0); POTASSIUM 3.9 mmol/L (3.5-5.0)
[2020-09-29] MEDS: SACCHAROMYCES BOULARDII 250 MG CAPSULE PO SCH (08:09)
[2020-09-29] MEDS: ASPIRIN EC 81 MG TABLET PO SCH (08:19)
[2020-09-29] MEDS: MORPHINE 2 MG/ML CARPUJECT IVP PRN (08:19)
[2020-09-29] MEDS: atenoloL 25 MG TABLET PO SCH (08:19)
[2020-09-29] MEDS: ethyl alcohoL 62% SWAB AMPULE NAS SCH (08:20)
[2020-09-29] MEDS: CELECOXIB 100 MG CAPSULE PO SCH (08:20)
[2020-09-29] MEDS: NITROFURANTOIN MACRO 100 MG CAPSULE PO SCH (08:20)
[2020-09-29] MEDS: polyethylene glycoL 3350 17 GM PACKET PO SCH (08:20)
[2020-09-29] MEDS: SENNA 8.6 MG TABLET PO SCH (08:20)
[2020-09-29] MEDS: DOCUSATE SODIUM 250 MG CAPSULE PO SCH (08:28)
[2020-09-29] MEDS: LEVOTHYROXINE 88 MCG TABLET PO SCH (08:28)
[2020-09-29] MEDS: SODIUM CHLORIDE FLUSH 0.9% 10 ML SYRINGE IVP SCH (08:28)
--- NOTE | 2020-09-29 12:28 | Discharge Plan ---
"Discharge Plan for SNF / [facility] - Discharge Plan And Transition Orders Problem Reviewed?: Yes Disposition: 03 SNF DC/Xfer Condition: Stable Allergies and Adverse Reactions: Allergies Allergy/AdvReac Type Severity Reaction Status Date / Time beclomethasone dipropionate * Allergy Unknown Verified 09/30/18 13:04 [From Qvar] ciprofloxacin [From Cipro] Allergy Unknown Verified 09/30/18 13:04 ciprofloxacin HCl * Allergy Unknown Verified 09/30/18 13:04 [From Cipro] metronidazole Allergy Unknown Verified 09/30/18 13:04 Sulfa (Sulfonamide Allergy Unknown Verified 09/30/18 13:04 Antibiotics) Health Concerns: s/p care of pt's complex bicondylar tibial plateau fracture right knee/leg Plan of Treatment: continue nonweightbearing ambulation right leg with walker, physical therapy and Occupational Therapy, Aspirin bid for DVT Prophylaxis, followup with orthopedics office in 2 weeks or early as needed. Care Goals: stabilization and improvement/healing of her fracture injury Assessment: discussed the care plan with pt, answer her question, pt understood - SNF / CUSTODIAL Transition Orders Admit to (Facility): [facility] Under the care of (Name): Dr. Gerard Joaquin Discharge Diagnosis: Right Tibial plateau fracture, HTN, HLD, hypothyroidism, sleep apnea, UTI, anemia Medicare Certification Statement: I certify that Post Hospital half-way care is medically necessary on a co ntinuing basis for any of the conditions for which she/he is receiving care during hospitalization. Notify PCP of admission and forward orders to primary provider for signature. Weight on admission and: Daily Call PCP immediately if weight increases by: 2 kg Other Notification Orders: Call PCP immediately if patient develops dyspnea, chest pain/tightness or edema. House Bowel Program: Yes Additional Bowel Program Orders: If no BM after 2 days, nurse may give M.O.M. 30ml PO PRN and/or ducolax Supp 1 IA and/or MELISSA 250mg P.O., and/or senna 1-2 tabs PO. On day 3 nurse may give repeat above order until residents constipation is resolved. Annual Influenza Vaccine (between Apr 01 and October 29): Yes Two-step PPD per [facility] [id number] or approved exception documents: Yes Treatments & Other Orders: continue nonweightbearing ambulation right leg with walker, physical therapy and Occupational Therapy, Aspirin bid for DVT Prophylaxis, followup with orthopedics office in 2 weeks or early as needed. Medication Orders: PLEASE REFER TO THE DISCHARGE MEDICATION LIST. Insulin Orders?: No - Medications New Prescriptions: oxyCODONE [Roxicodone] 5 mg PO Q6HR PRN #15 mg PRN Reason: Pain Aspirin EC [Ecotrin] 81 mg PO BID #30 mg Nitrofurantoin [Macrobid] 100 mg PO BID #6 mg - Diet Type: Geriatric Texture: Regular Liquids: Thin May have monthly special meal: Yes - Therapies | Activity Therapy: Evaluation | Treat if indicated: PT, OT Rehabilitation Potential: Maximize functional status Activity: Activity as Tolerated Weight Bearing: No Weight Assistance Devices: Walker"
--- NOTE | 2020-09-29 12:48 | DISCHARGE SUMMARY ---
"Discharge Summary Admit Date: 09/25/20 Discharge Date: 09/29/20 Discharging Provider: Eros Sullivan Primary Care Provider: Dr. Miryam Crabtree Condition at Discharge: Stable Discharge Disposition: SNF DC/Xfer Discharge Facility Name: [facility] - DIAGNOSES Discharge Diagnoses with Status of Each Condition: (1) Severe impacted Tibial plateau fracture, right Improved, pt Is discharge to [facility] for continuing care. pt may continue nonweightbearing ambulation right leg with walker, physical therapy and Occupational Therapy, Aspirin bid for DVT Prophylaxis, followup with orthopedics office in 2 weeks or early as needed. (3) Hypertension stable, continue home meds (4) Hyperlipidemia stable (5) Hypothyroidism stable (6) Obstructive sleep apnea on CPAP stable (8) UTI (urinary tract infection) UA culture shoe positive Ecoli Macrobid 100mg po bid X 3days. (9) Anemia stable (10)COPD stable, pt may continue home meds - HPI History of Present Illness: refer from Dr. Matthews's HPI on 09/25/20 Patient is a 69-year-old female with medical history significant for hypertension, hyperlipidemia, hypothyroidism, obstructive sleep apnea on CPAP and emphysema who presented to the ED with right knee pain after a mechanical fall. She has a very high van and was trying to get out of the van when she slipped on the step of the van and landed on her right knee. The point of impact was with the edge of a cement slab. This happened around 11 PM on 09/24/2020. She did not hit her head or blackout. It was a witnessed fall, witnessed by her brother. At bedside she appears to be in moderate to severe pain with intermittent muscle cramping which seem to worsen her pain. She denies chest pain, dyspnea, abdominal pain, nausea, vomiting, fever or chills. Work-up in the ED included a CT of the right lower extremity which showed tibial plateau fracture. Dr. Swann with orthopedics was contacted and was agreeable to see the patient in consult. - CONSULTS | PROCEDURES Consultations: Dr. Swann Procedures: Open reduction internal fixation tibial plateau right knee with lateral buttress plate, locking; long locking medial buttress plate and posterior medial buttress plate, locking; calcium phosphate cement and morselized cancellous allograft - HOSPITAL COURSE Hospital Course: Patient was admitted for mechanical fall in the home. In CAT scan in right lower extremity show severe impacted tibial plateau fracture. Orthopedics surgeon had procedure of Open reduction internal fixation tibial plateau right knee with lateral buttress plate, locking; long locking medial buttress plate and posterior medial buttress plate, locking; calcium phosphate cement and morselized cancellous allograft for pt. Patient was also found to have UTI, patient had intravenous antibiotic treatment. PT and OT evaluated and treated patient, recommend patient be discharged to SNF. Patient is discharged to SNF of [facility] for continued care. - ALLERGIES Allergies/Adverse Reactions: Allergies Allergy/AdvReac Type Severity Reaction Status Date / Time beclomethasone dipropionate * Allergy Unknown Verified 09/30/18 13:04 [From Qvar] ciprofloxacin [From Cipro] Allergy Unknown Verified 09/30/18 13:04 ciprofloxacin HCl * Allergy Unknown Verified 09/30/18 13:04 [From Cipro] metronidazole Allergy Unknown Verified 09/30/18 13:04 Sulfa (Sulfonamide Allergy Unknown Verified 09/30/18 13:04 Antibiotics) - MEDICATIONS Home Medications: Ambulatory Orders Medication Instructions Recorded Confirmed Ascorbic Acid [Vitamin C] 1,000 mg PO BID 11/18/14 09/25/20 Multivitamin [Multivitamins] 1 tab PO DAILY 11/18/14 09/25/20 Ubidecarenone [Coenzyme Q10] 1 tab PO DAILY 11/18/14 09/25/20 Vitamin B Complex Vit C No.4 1 tab PO DAILY 11/18/14 09/25/20 [Super B Complex] Alendronate [Fosamax] 70 mg PO .ONE PER WEEK 09/24/20 09/25/20 Ipratropium/Albuterol [Combivent 1 puffs INH QID 09/24/20 09/25/20 Respimat] Irbesartan/Hydrochlorothiazide 1 tab PO DAILY 09/24/20 09/25/20 [Avalide 300-12.5 mg Tablet] Magnesium Chloride [Slow-Mag] 1 tab PO DAILY 09/24/20 09/25/20 Atenolol [Tenormin] 50 mg PO BID 09/25/20 09/25/20 Atorvastatin [Lipitor] 20 mg PO DAILY 09/25/20 09/25/20 Levothyroxine [Synthroid] 88 mcg PO DAILY 09/25/20 09/25/20 Aspirin EC [Ecotrin] 81 mg PO BID #30 mg 09/29/20 Nitrofurantoin Monohyd/M-Cryst 100 mg PO BID 3 Days #6 mg 09/29/20 [Macrobid 100 mg Capsule] oxyCODONE [Roxicodone] 5 mg PO Q6HR PRN #15 mg 09/29/20 - PHYSICAL EXAM AT DISCHARGE General Appearance: positive: No acute distress, Alert. negative: Lethargic Eyes Bilateral: positive: Normal inspection, PERRL, No lid inflammation ENT: positive: ENT inspection nml, No signs of dehydration. negative: Purulent nasal drainage, Dry mucous membranes Neck: positive: Nml inspection, Trachea midline. negative: Thyromegaly, Tracheal deviation Respiratory: positive: Chest non-tender, No respiratory distress. negative: Wheezes, Rales Cardiovascular: positive: Regular rate & rhythm, No murmur. negative: Tachycardia, Bradycardia, Systolic murmur, Diastolic murmur Peripheral Pulses: positive: 2+ Abdomen: positive: Non-tender, Nml bowel sounds, No distention. negative: Tenderness, Guarding, Rebound Back: positive: Nml inspection Skin: positive: Color nml, Warm, Dry. negative: Cyanosis, Diaphoresis, Pallor Extremities: positive: Non-tender, Other (right lower extremity with GLENROY wrap done by surgeon, pt had intact neurovascular exmination in distal right lower extremity ). negative: Calf tenderness Neurologic/Psychiatric: positive: Oriented x3, Sensation nml, Mood/affect nml. negative: Weakness, Sensory loss, Facial droop, Slurred/abnml speech, Depressed mood/affect - LABS Result Diagrams: 09/29/20 07:47 09/29/20 07:47 - FOLLOW UP Follow Up: continue nonweightbearing ambulation right leg with walker, physical therapy and Occupational Therapy, Aspirin bid for DVT Prophylaxis, followup with orthopedics office in 2 weeks or early as needed. - TIME SPENT Time Spent in Discharge (Minutes): 30"
[2020-09-29 14:04] LABS: B. PARAPERTUSSIS- RESP PCR PAN NOT DETECTED; B. PERTUSSIS- RESP PCR PANEL NOT DETECTED; C. PNEUMONIAE- RESP PCR PANEL NOT DETECTED; CORONAVIRUS 229E-RESP PCR NOT DETECTED; CORONAVIRUS HKU1-RESP PCR NOT DETECTED; CORONAVIRUS NL63-RESP PCR NOT DETECTED; CORONAVIRUS OC43-RESP PCR NOT DETECTED; HUMAN METAPNEUMOVIRUS NOT DETECTED; INFLUENZA A- RESP PCR PANEL NOT DETECTED; INFLUENZA B - RESP PCR PANEL NOT DETECTED; M. PNEUMONIAE- RESP PCR PANEL NOT DETECTED; PARAINFLUENZA VIRUS 1 NOT DETECTED; PARAINFLUENZA VIRUS 2 NOT DETECTED; PARAINFLUENZA VIRUS 3 NOT DETECTED; PARAINFLUENZA VIRUS 4 NOT DETECTED; RHINOVIRUS/ENTEROVIRUS NOT DETECTED; RSV- RESP PCR PANEL NOT DETECTED; SARS-CoV-2 -RESP PCR PANEL NOT DETECTED
[2020-09-29 15:47] VITALS: BP 130/79
== END 2020-09-29 16:20 | DRG 493 ==
LOC: EDUNIT# → ED 22:52 → MS2 09-25 03:03
PROVIDERS: ADMIT Internal Medicine; ATTEND Nurse Practitioner Gerontology
PROC: 0QUG07Z Supplement Right Tibia with Autologous Tissue Substitute, Open Approach (ICD-10-PCS; 2020-09-26)
PROC: 0QSG04Z Reposition Right Tibia with Internal Fixation Device, Open Approach (ICD-10-PCS; principal; 2020-09-26 07:30)
PROC: 30233N1 Transfusion of Nonautologous Red Blood Cells into Peripheral Vein, Percutaneous Approach (ICD-10-PCS; 2020-09-27)
DX: S82.141A Displaced bicondylar fracture of right tibia, initial encounter for closed fracture (principal); N39.0 Urinary tract infection, site not specified; D62 Acute posthemorrhagic anemia; B96.20 Unspecified Escherichia coli [E. coli] as the cause of diseases classified elsewhere; S82.251A Displaced comminuted fracture of shaft of right tibia, initial encounter for closed fracture; S82.451A Displaced comminuted fracture of shaft of right fibula, initial encounter for closed fracture; S43.401A Unspecified sprain of right shoulder joint, initial encounter; V58.4XXA Person boarding or alighting a pick-up truck or van injured in noncollision transport accident, initial encounter; E78.00 Pure hypercholesterolemia, unspecified; Y92.008 Other place in unspecified non-institutional (private) residence as the place of occurrence of the external cause; I10 Essential (primary) hypertension; E78.5 Hyperlipidemia, unspecified; G47.33 Obstructive sleep apnea (adult) (pediatric); Z20.822 Contact with and (suspected) exposure to COVID-19; J43.9 Emphysema, unspecified; E03.9 Hypothyroidism, unspecified; E66.9 Obesity, unspecified; Z68.31 Body mass index [BMI] 31.0-31.9, adult; K21.9 Gastro-esophageal reflux disease without esophagitis; R32 Unspecified urinary incontinence; Z79.82 Long term (current) use of aspirin; Z79.51 Long term (current) use of inhaled steroids; G47.30 Sleep apnea, unspecified
CPT/HCPCS: 36415; 71045; 73030; 73060; 73564; 73590; 73700; 74178; 76770; 80048; 80053; 81001; 83690; 84443; 85025; 85610; 86850; 86900; 86901; 86920; 87086; 87181; 87631; 93005; 93306; 94640; 96374; 96375; 97116; 97161; 97166; 97530; 99284; 99285; A9270; C1713; J0131; J0690; J1170; J1650; J3370; J7120; J7626; P9016; Q9967; 0202U; 81003

== ENCOUNTER 2020-11-10 07:00 | Outpatient (CLI) | payer MEDICARE, OTHER ==
--- NOTE | 2020-11-10 16:22 | XRAY Report ---
PROCEDURE: Tib/Fib RT INDICATIONS: DISPLACED BICONDYLAR FX OF R TIBIA TECHNIQUE: 2 views of the tibia and fibula were acquired. COMPARISON: 09/25/2020 plain films FINDINGS: Bones: Minimally displaced proximal tibial fracture. No suspicious bony lesions. ORIF of the mid/pro ximal tibia. Subacute fibular neck fracture. Soft tissues: No suspicious soft tissue calcifications or masses. IMPRESSION: 1. Postsurgical sequelae involving the tibia. 2. Healing fibular neck fracture. Reviewed by: Chantelle Hdz MD on 11/10/2020 4:21 PM PDT Approved by: Chantelle Hdz MD on 11/10/2020 4:21 PM PDT Station ID: [id number]
== END 2020-11-10 23:59 | disposition home or self-care (01) ==
LOC: DI.N 07:00
PROVIDERS: ATTEND Physician Assistant
DX: S82.831D Other fracture of upper and lower end of right fibula, subsequent encounter for closed fracture with routine healing (principal)

== ENCOUNTER 2020-12-08 00:36 | Outpatient (CLI) | payer MEDICARE, OTHER | END 2020-12-08 00:37 | disposition critical access hospital (66) | LOC: EMS 00:36 | DX: M25.531 Pain in right wrist (principal) | CPT/HCPCS: A0425; A0429 ==

== ENCOUNTER 2020-12-08 00:50 | Emergency (ER) | payer MEDICARE, OTHER ==
[2020-12-08] MEDS ORDERED: SODIUM CHLORIDE 0.9% 1,000 ML IV STA (01:10)
[2020-12-08] MEDS ORDERED: HYDROmorphone 1 MG/ML CARPUJECT IVP STA ×2 (01:10→04:56)
--- NOTE | 2020-12-08 01:12 | ED Physician Documentation ---
PD HPI UPPER EXT INJURY - Stated complaint Stated Complaint: GLF/ R WRIST INJ - Chief complaint Chief Complaint: Trauma Ext - History obtained from History obtained from: Patient, EMS - Additonal information Additional information: Patient comes emergency department chief complaint of right wrist pain after falling while attempting to get into her wheelchair. Patient noticed deformity and pain immediately after catching herself on her right wrist. Patient is still recovering from a right knee surgery a couple of months ago and is still not weightbearing on that side. No other injuries. No other complaints at this time. Review of Systems Ten Systems: 10 systems reviewed and negative Constitutional: reports: Reviewed and negative Eyes: reports: Reviewed and negative Ears: reports: Reviewed and negative Nose: reports: Reviewed and negative Throat: reports: Reviewed and negative Cardiac: reports: Reviewed and negative Respiratory: reports: Reviewed and negative GI: reports: Reviewed and negative : reports: Reviewed and negative Skin: reports: Reviewed and negative Musculoskeletal: reports: Joint pain Neurologic: reports: Reviewed and negative Psychiatric: reports: Reviewed and negative Endocrine: reports: Reviewed and negative Immunocompromised: reports: Reviewed and negative PD PAST MEDICAL HISTORY - Past Medical History Past Medical History: Yes Cardiovascular: Hypertension, High cholesterol Respiratory: COPD, Emphysema, Sleep apnea, CPAP use Endocrine/Autoimmune: HyPOthyroidism GI: GERD : Incontinence, Kidney stones HEENT: None Psych: None Musculoskeletal: None Derm: None - Past Surgical History Past Surgical History: Yes General: Colonoscopy Ortho: Other - Present Medications Home Medications: Ambulatory Orders Medication Instructions Recorded Confirmed Ascorbic Acid [Vitamin C] 1,000 mg PO BID 11/18/14 12/08/20 Multivitamin [Multivitamins] 1 tab PO DAILY 11/18/14 12/08/20 Ubidecarenone [Coenzyme Q10] 1 tab PO DAILY 11/18/14 12/08/20 Vitamin B Complex Vit C No.4 1 tab PO DAILY 11/18/14 12/08/20 [Super B Complex] Alendronate [Fosamax] 70 mg PO .ONE PER WEEK 09/24/20 12/08/20 Ipratropium/Albuterol [Combivent 1 puffs INH QID 09/24/20 12/08/20 Respimat] Irbesartan/Hydrochlorothiazide 1 tab PO DAILY 09/24/20 12/08/20 [Avalide 300-12.5 mg Tablet] Magnesium Chloride [Slow-Mag] 1 tab PO DAILY 09/24/20 12/08/20 Atenolol [Tenormin] 50 mg PO BID 09/25/20 12/08/20 Atorvastatin [Lipitor] 20 mg PO DAILY 09/25/20 12/08/20 Levothyroxine [Synthroid] 88 mcg PO DAILY 09/25/20 12/08/20 Aspirin EC [Ecotrin] 81 mg PO BID #30 mg 09/29/20 12/08/20 Nitrofurantoin Monohyd/M-Cryst 100 mg PO BID 3 Days #6 mg 09/29/20 12/08/20 [Macrobid 100 mg Capsule] oxyCODONE [Roxicodone] 5 mg PO Q6HR PRN #15 mg 09/29/20 12/08/20 HYDROcod/ACETAM 5/325 [Holt 5/325] 1 - 2 tablet PO Q6H PRN #14 tablet 12/08/20 - Allergies Allergies/Adverse Reactions: Allergies Allergy/AdvReac Type Severity Reaction Status Date / Time beclomethasone dipropionate * Allergy Unknown Verified 12/08/20 01:01 [From Qvar] ciprofloxacin [From Cipro] Allergy Unknown Verified 12/08/20 01:01 ciprofloxacin HCl * Allergy Unknown Verified 12/08/20 01:01 [From Cipro] metronidazole Allergy Unknown Verified 12/08/20 01:01 Sulfa (Sulfonamide Allergy Unknown Verified 12/08/20 01:01 Antibiotics) - Social History Does the pt smoke?: No Smoking Status: Former smoker Does the pt drink ETOH?: Yes Does the pt have substance abuse?: No - Immunizations Immunizations are current?: Yes - POLST Patient has POLST: No POLST Status: Full Code PD ED PE NORMAL - Vitals Vital signs reviewed: Yes - General General: Alert and oriented X 3, No acute distress, Well developed/nourished - HEENT HEENT: Atraumatic, PERRL, EOMI, Moist mucous membranes - Neck Neck: Supple, no meningeal sign - Cardiac Cardiac: RRR, No murmur - Respiratory Respiratory: No respiratory distress, Clear bilaterally - Derm Derm: Normal color, Warm and dry, No rash - Extremities Extremities: No deformity, Other (Obvious deformity of right wrist. No other tenderness or deformity the remainder of right upper extremity) - Neuro Neuro: Alert and oriented X 3 - Psych Psych: Normal mood, Normal affect Results - Vitals Vitals: Vital Signs - 24 hr 12/08/20 12/08/20 12/08/20 00:58 02:20 02:22 Temperature 36.7 C Heart Rate 73 68 73 Respiratory 14 16 16 Rate Blood Pressure 162/87 H 155/81 H 150/87 H O2 Saturation 98 98 96 12/08/20 12/08/20 12/08/20 02:30 02:33 02:41 Temperature Heart Rate 68 71 69 Respiratory 15 13 13 Rate Blood Pressure 137/71 H 112/94 H O2 Saturation 96 98 12/08/20 12/08/20 03:00 03:35 Temperature Heart Rate 73 71 Respiratory 14 17 Rate Blood Pressure 148/83 H 151/79 H O2 Saturation 96 95 Oxygen O2 Source Room air - Rads (name of study) R wrist XR Radiology: Final report received, EMP read indepedently, See rad report (Comminuted, impacted intra-articular distal radius fx) R wrist XR post-reduction Radiology: Final report received, EMP read indepedently, EMP read contemporaneously (Improved alignment of above fracture.) Procedures - Splint (location) R wrist Splint applied by: Physician, Tech Type of splint: Fiberglass, Sugar tong Other: Patient tolerated well, No complications, Neurovascular intact, Good alignment, Sling provided - Reduction Body part reduced: Right, Wrist Fracture or dislocation: Fracture Anesthesia: Propofol Reduction aftercare: NV intact, Xray confirms reduction, Alignment improved, Splint applied, Sling, Patient tolerated well - Procedural sedation Sedation prep: Informed consent, Time out completed, PE performed, IV O2 monitor, RT present Sedation medications: propofol Patient status during sedation: Unresponsive, Vitals remained stable, Maintained airway, Recovered uneventfully Sedation recovery: Recovered uneventfully, Back to baseline Time in sedation (Minutes): 5 PD MEDICAL DECISION MAKING - ED course Complexity details: reviewed old records, reviewed results, re-evaluated patient, considered differential, d/w patient ED course: Patient was worked up with x-ray, which showed a comminuted and impacted distal radius fracture. She had significant deformity of the wrist, and I felt that prior to splinting, the fracture should be reduced as best as possible. This was performed with sedation, as above. Significant improvement was noted in the bony alignment, and sugar tong splint splint was placed. The patient is already established with Dr. Swann, and given that the patient was neurovascularly intact and did not have a fracture that would require emergent surgical intervention tonight, I we will plan to call Dr. Swann and during waking hours, early this morning. The patient is instructed that if Dr. Swann's office does not call her today to set up a follow-up appointment for this week, that she should call first thing tomorrow morning to make follow-up plans. I have refilled her pain medication. We have discussed the usual indications for return. Departure - Departure Disposition: Home, Self Care Clinical Impression: Distal radius fracture, right Qualifiers: Encounter type: initial encounter Fracture type: closed Fracture morphology: unspecified fracture morphology Qualified Code(s): S52.501A - Unspecified fracture of the lower end of right radius, initial encounter for closed fracture Condition: Stable Instructions: Sedation Procedural, ED Fx Forearm Radius Ulna Redu Requ Prescriptions: HYDROcod/ACETAM 5/325 [Holt 5/325] 1 - 2 tablet PO Q6H PRN #14 tablet PRN Reason: Pain Comments: Your x-ray series showed a fracture with significant displacement at the lateral portion of your radius, the larger of your 2 forearm bones. This was realigned quite well, but it is very important that you follow-up with Dr. Swann this week to determine further management. Dr. Swann will be contacted this morning to make him aware of your injury and the need for follow-up. His office should be calling you today to help you set up an appointment, but if you have not heard from them by the end of the day, you should call first thing tomorrow morning to be sure you get an appointment this week. Please take the pain medic ation as needed. Please elevate your wrist whenever possible to help with swelling.
[2020-12-08] MEDS ORDERED: PROPOFOL 200 MG/20 ML VIAL IVP STA (02:12)
[2020-12-08 05:38] VITALS: BP 133/77
--- NOTE | 2020-12-08 08:47 | XRAY Report ---
PROCEDURE: Wrist 3 View RT INDICATIONS: fall/pain/deformity TECHNIQUE: 3 views of the wrist were acquired. COMPARISON: None FINDINGS: Bones: There is a fracture or malalignment involving the distal radius with comminuted intra-articula r dorsally angulated fracture planes seen involving the distal metadiaphyseal junction and extending into the articular surface. A fracture involving the distal ulna is not identified but overlapping be dding or dressings produce linear radiodensities superimposed on the fracture planes.. No suspicious bony lesions. Scaphoid view: Not obtained. Soft tissues: No suspicious soft tissue calcifications. IMPRESSION: Moderately severe to severe distal radius fracture, comminuted and intra-articular, with dorsal angul ation, but no definite distal ulnar fracture is found. As noted, the study is limited by overlapping material such as the bedding. Reviewed by: Osmin Bates MD on 12/08/2020 8:46 AM PDT Approved by: Osmin Bates MD on 12/08/2020 8:46 AM PDT Station ID: [id number]
--- NOTE | 2020-12-08 08:50 | XRAY Report ---
PROCEDURE: Wrist 3 View RT INDICATIONS: post-reduction TECHNIQUE: 5 views of the wrist were acquired. COMPARISON: Acute trauma plain films prior to reduction reviewed, same day. FINDINGS: Bones: No previously unidentified fractures or dislocations. There has been interval closed reductio n of the comminuted displaced and dorsally angulated fracture involving the distal radius. Significan t improvement in malalignment has been accomplished by closed reduction, near anatomic. No suspicious bony lesions. Scaphoid view: No trauma to the scaphoid. Soft tissues: No suspicious soft tissue calcifications. IMPRESSION: Significant interval improvement in fracture or malalignment after closed reduction and casting. No n ew trauma found. Reviewed by: Osmin Bates MD on 12/08/2020 8:48 AM PDT Approved by: Osmin Bates MD on 12/08/2020 8:48 AM PDT Station ID: [id number]
== END 2020-12-08 05:15 | disposition home or self-care (01) ==
LOC: EDUNIT# → ED 00:50
DX: S52.561A Barton's fracture of right radius, initial encounter for closed fracture (principal); W05.0XXA Fall from non-moving wheelchair, initial encounter; I10 Essential (primary) hypertension; E78.00 Pure hypercholesterolemia, unspecified; J43.9 Emphysema, unspecified; G47.30 Sleep apnea, unspecified; E03.9 Hypothyroidism, unspecified; R32 Unspecified urinary incontinence; Z99.3 Dependence on wheelchair; Z87.891 Personal history of nicotine dependence; Z79.82 Long term (current) use of aspirin; Z79.899 Other long term (current) drug therapy
CPT/HCPCS: 25605; 73110; 96361; 96374; 96376; 99283; J1170; 94770

== ENCOUNTER 2020-12-09 08:00 | Outpatient (CLI) | payer MEDICARE, OTHER ==
--- NOTE | 2020-12-09 17:01 | XRAY Report ---
PROCEDURE: Shoulder 3 View RT INDICATIONS: R SHOULDER PX TECHNIQUE: 3 views of the shoulder were acquired. COMPARISON: None. FINDINGS: Bones: No fractures or dislocations. No suspicious bony lesions. Visualized ribs appear intact. M oderate to severe acromioclavicular degenerative narrowing. Humeral head is high riding. Mild glenohu meral narrowing is noted. Soft tissues: No suspicious soft tissue calcifications. IMPRESSION: 1. Acromioclavicular and glenohumeral degenerative narrowing. 2. High riding humeral head which can be seen with rotator cuff pathology. Reviewed by: Karena Garcia MD on 12/09/2020 5:00 PM PDT Approved by: Karena Garcia MD on 12/09/2020 5:00 PM PDT Station ID: [id number]
--- NOTE | 2020-12-09 17:02 | XRAY Report ---
PROCEDURE: Tib/Fib RT INDICATIONS: DISPLACED BICONDYLAR FX OF R TIBIA TECHNIQUE: 2 views of the tibia and fibula were acquired. COMPARISON: X-ray tip. 11/10/2020 FINDINGS: Bones: Extensive proximal tibial fixation is present. Hardware appears intact without evidence of mohan dware fracture or periprosthetic lucency. Fracture lucency within the bone remains present. There is good anatomic alignment. Proximal tibial head fracture is again noted without appreciable change. No suspicious bony lesions. Soft tissues: No suspicious soft tissue calcifications or masses. IMPRESSION: Stable appearance of tibial fixation as above. Reviewed by: Karena Garcia MD on 12/09/2020 5:01 PM PDT Approved by: Karena Garcia MD on 12/09/2020 5:01 PM PDT Station ID: [id number]
== END 2020-12-09 23:59 | disposition home or self-care (01) ==
LOC: DI.N 08:00
PROVIDERS: ATTEND Orthopaedic Surgery
DX: S82.141D Displaced bicondylar fracture of right tibia, subsequent encounter for closed fracture with routine healing (principal); M25.811 Other specified joint disorders, right shoulder; R93.6 Abnormal findings on diagnostic imaging of limbs

== ENCOUNTER 2020-12-11 10:27 | Day surgery (SDC) | payer MEDICARE, OTHER ==
[~2020-12-11 10:27] MED LIST: ceFAZolin 2 GM/50 ML 2 GM/50 ML BAG IV ONE
[2020-12-11] MEDS ORDERED: LACTATED RINGERS 1,000 ML IV ONE ×2 (10:32→13:11)
--- NOTE | 2020-12-11 11:33 | ANESTHESIA ---
Pre-Anesthesia VS, & Labs - Diagnosis right radial fracture - Procedure closed reduction, percutaneous pinning right wrist fracture Vital Signs: Temp Pulse Resp BP Pulse Ox 36.6 C 75 16 130/82 H 97 12/11/20 10:41 12/11/20 10:41 12/11/20 10:41 12/11/20 10:41 12/11/20 10:41 Height: 54 ft Weight (kg): 78 kg Body Mass Index: 0.3 BMI Classification: Underweight - NPO >8 hours - Is Patient ?: No Home Medications and Allergies Ascorbic Acid [Vitamin C] 1,000 mg PO BID 11/18/14 Multivitamin [Multivitamins] 1 tab PO DAILY 11/18/14 Ubidecarenone [Coenzyme Q10] 1 tab PO DAILY 11/18/14 Vitamin B Complex Vit C No.4 [Super B Complex] 1 tab PO DAILY 11/18/14 Alendronate [Fosamax] 70 mg PO .ONE PER WEEK 09/24/20 Ipratropium/Albuterol [Combivent Respimat] 1 puffs INH QID 09/24/20 Irbesartan/Hydrochlorothiazide [Avalide 300-12.5 mg Tablet] 1 tab PO DAILY 09/24/20 Magnesium Chloride [Slow-Mag] 1 tab PO DAILY 09/24/20 Atenolol [Tenormin] 50 mg PO BID 09/25/20 Atorvastatin [Lipitor] 20 mg PO DAILY 09/25/20 Levothyroxine [Synthroid] 88 mcg PO DAILY 09/25/20 Allergies/Adverse Reactions: Allergies Allergy/AdvReac Type Severity Reaction Status Date / Time beclomethasone dipropionate * Allergy Unknown Verified 12/11/20 10:55 [From Qvar] ciprofloxacin [From Cipro] Allergy Unknown Verified 12/11/20 10:55 ciprofloxacin HCl * Allergy Unknown Verified 12/11/20 10:55 [From Cipro] metronidazole Allergy Unknown Verified 12/11/20 10:55 Sulfa (Sulfonamide Allergy Unknown Verified 12/11/20 10:55 Antibiotics) Anes History & Medical History - Anesthetic History Anesthesia Complications: reports: No previous complications - Medical History Cardiovascular: reports: Hypertension, High cholesterol Pulmonary: reports: COPD, Emphysema, Sleep apnea, CPAP use Gastrointestinal: reports: GERD Urinary: reports: Incontinence, Kidney stones Musculoskeletal: reports: None Endocrine/Autoimmune: reports: HyPOthyroidism Skin: reports: None Smoking Status: Former smoker History of Cancer?: No - Surgical History General: reports: Colonoscopy Orthopedic: reports: Other Exam General: Alert Dental: WNL Mouth Opening: Greater than 4 Fingerbreadths Neck Mobility: Normal Mallampati classification: II Thyromental Distance: greater than 6 cm Respiratory: Lungs clear Cardiovascular: Regular rate Plan Anesthesia Type: General, Supraclavicular Block Consent for Procedure(s) Verified and Reviewed: Yes Code Status: Attempt Resuscitation ASA classification: 3-Severe systemic disease Is this case an emergency?: No
[2020-12-11] MEDS ORDERED: HYDROmorphone 0.5 MG/0.5 ML SYRINGE IVP PRN (11:37)
[2020-12-11] MEDS ORDERED: METOCLOPRAMIDE 10 MG/2 ML VIAL IVP PRN (11:37)
[2020-12-11] MEDS ORDERED: ATROPINE ABBOJECT 1 MG/10 ML SYRINGE IVP PRN (11:37)
[2020-12-11] MEDS ORDERED: NALOXONE 0.4 MG/ML VIAL IVP PRN (11:37)
[2020-12-11] MEDS ORDERED: ONDANSETRON 4 MG/2 ML VIAL IVP PRN (11:37)
[2020-12-11] MEDS ORDERED: fentaNYL 100 MCG/2 ML VIAL IVP PRN (11:37)
[2020-12-11] MEDS ORDERED: MORPHINE 2 MG/ML CARPUJECT IVP PRN (11:37)
[2020-12-11] MEDS ORDERED: ePHEDrine 50 MG/ML VIAL IVP PRN (11:37)
[2020-12-11] MEDS ORDERED: LIDOCAINE-MPF 2% 5 ML VIAL ONE (11:47)
[2020-12-11] MEDS ORDERED: fentaNYL 100 MCG/2 ML VIAL ONE (11:47)
[2020-12-11] MEDS ORDERED: DEXAMETHASONE 4 MG/ML VIAL ONE (11:47)
[2020-12-11] MEDS ORDERED: PROPOFOL 200 MG/20 ML VIAL IVP ONE ×2 (11:47→12:49)
[2020-12-11] MEDS ORDERED: MIDAZOLAM 2 MG/2 ML VIAL ONE (11:47)
[2020-12-11] MEDS ORDERED: ROPIVACAINE 0.5% PF 20 ML AMPULE ONE (11:47)
[2020-12-11 11:50] LABS: B. PARAPERTUSSIS- RESP PCR PAN NOT DETECTED; B. PERTUSSIS- RESP PCR PANEL NOT DETECTED; C. PNEUMONIAE- RESP PCR PANEL NOT DETECTED; CORONAVIRUS 229E-RESP PCR NOT DETECTED; CORONAVIRUS HKU1-RESP PCR NOT DETECTED; CORONAVIRUS NL63-RESP PCR NOT DETECTED; CORONAVIRUS OC43-RESP PCR NOT DETECTED; HUMAN METAPNEUMOVIRUS NOT DETECTED; INFLUENZA A- RESP PCR PANEL NOT DETECTED; INFLUENZA B - RESP PCR PANEL NOT DETECTED; M. PNEUMONIAE- RESP PCR PANEL NOT DETECTED; PARAINFLUENZA VIRUS 1 NOT DETECTED; PARAINFLUENZA VIRUS 2 NOT DETECTED; PARAINFLUENZA VIRUS 3 NOT DETECTED; PARAINFLUENZA VIRUS 4 NOT DETECTED; RHINOVIRUS/ENTEROVIRUS NOT DETECTED; RSV- RESP PCR PANEL NOT DETECTED; SARS-CoV-2 -RESP PCR PANEL NOT DETECTED
[2020-12-11] MEDS ORDERED: LACTATED RINGERS 1,000 ML IV SCH (12:00)
--- NOTE | 2020-12-11 13:17 | OPERATIVE REPORT ---
Operative Report - General Procedure Date: 12/11/20 Planned Procedure: ClosedReduction with percutaneous K wire fixation right distal radius Pre-Op Diagnosis: Closed, displaced, comminuted articular fracture right distal radius Procedure Performed: Closed reduction right distal radius with percutaneous K wire fixation Post Op Diagnosis: Same as preoperative diagnosis - Procedure Note Primary Surgeon: Trevin Swann MD Anesthesia Provider: Wendy Salomon CRNA Anesthesia Technique: Moderate sedation, Regional block Estimated Blood Loss (mL): 0 Indications: This is a 70-year-old woman with mechanical fall onto her right hand within the past week. She sustained isolated injury to right distal radius, had closed reduction of the right distal radius comminuted fracture in the emergency room with application of sugar tong splint. She has a displaced fracture, greater than 20 degrees of angulation, comminuted metaphyseal fracture with intra- articular extension. She also has injury to right lower extremity that was treated 2-1/2 months ago, Schatzker type tibial plateau fracture treated with open reduction internal fixation. Findings: Displaced, comminuted, articular fracture right distal radius, ulna intact. The closed reduction that was performed was actually quite satisfactory but the chances of redisplacement are high. Complications: None - Other Other Information/Narrative: The patient was brought to the operating room and placed in the supine position with a arm table applied to the right side. The right upper extremity was prepped and draped in a sterile manner in the usual fashion. A timeout procedure was performed by the entire operating room team and all were in agreement. The C arm image intensifier was used intermittently for fracture visualization using0.062 inch K wires were inserted with power beginning over the radial styloid. Bicortical K wire was inserted from the radial styloid across the fracture site and into the ulnar cortex. A second K wire was applied from the radial styloid as well. A third K wire was placed parallel to the joint surface to capture the lunate fracture fragment of the distal radius and this was taken through 4 cortices as the distal radial ulnar joint was transfixed. The K wire was left proud on the ulnar side in the event that the K wire were to break at the radial ulnar joint. An additional K wire was inserted from the ulnar cortex of the distal radius at the radial ulnar joint and inserted in a Bleich fashion, again achieving bicortical fixation. The alignment of the fracture of the right distal radius appeared good as well as the fixation. Permanent images were obtained. The ends of the K wires were cut and Yolette balls were applied. Gauze sponges were cut and placed around the K wires, cast padding and a volar fiberglass splint secured with David wrap. She tolerated the procedure well. biplanar imaging, sterile drape applied to the C arm. A bump was placed underneath the volar right wrist. Fingertrap traction was applied to all 5 fingers using a traction bow to apply longitudinal traction with the wrist in some palmar flexion and ulnar deviation.
[2020-12-11] MEDS ORDERED: HYDROcod/ACETAM 5/325 MG TABLET PO PRN (13:25)
--- NOTE | 2020-12-11 13:47 | ANESTHESIA POST OP EVALUATION ---
Anesthesia Post Eval - Post Anesthesia Eval Vitals: Last Vital Signs Temp 36.1 C L 12/11/20 13:23 Pulse 69 12/11/20 13:23 Resp 16 12/11/20 13:23 BP 132/82 H 12/11/20 13:23 Pulse Ox 93 12/11/20 13:23 CV Function Including HR & BP: Stable Pain Control: Satisfactory Nausea & Vomiting: Negative Mental Status: Baseline Respiratory Status: Airway Patent Hydration Status: Satisfactory Anesthesia Complications: None
[2020-12-11 13:55] VITALS: BP 130/73
--- NOTE | 2020-12-11 16:26 | XRAY Report ---
PROCEDURE: OR C-Arm Procedure INDICATIONS: PERC PINNING TECHNIQUE: 2 intraoperative fluoroscopic images of right wrist. COMPARISON: Right wrist radiograph dated 12/08/2020. FINDINGS: Intraoperative fluoroscopic images of wrist shows surgical pinning of previously noted comminuted dis tao radial fracture with [address]. Alignment of wrist is anatomic. Total fluoroscopy time is 11 seconds. IMPRESSION: Fluoroscopy guidance was provided intraoperatively for percutaneous pinning of distal radius. Reviewed by: Nic Mayorga MD on 12/11/2020 4:24 PM PDT Approved by: Nic Mayorga MD on 12/11/2020 4:24 PM PDT Station ID: [id number]
== END 2020-12-11 10:28 | disposition home or self-care (01) ==
LOC: SDS 10:27
PROVIDERS: ATTEND Orthopaedic Surgery
DX: S52.571A Other intraarticular fracture of lower end of right radius, initial encounter for closed fracture (principal); J43.9 Emphysema, unspecified; G47.30 Sleep apnea, unspecified; I10 Essential (primary) hypertension; Z20.822 Contact with and (suspected) exposure to COVID-19; Z87.891 Personal history of nicotine dependence
CPT/HCPCS: 25606; 87631; C1713; J0690; J7120; 0202U

== ENCOUNTER 2020-12-14 13:22 | Emergency (ER) | payer MEDICARE, OTHER ==
--- NOTE | 2020-12-14 15:17 | ED Physician Documentation ---
History of Present Illness - Stated complaint Stated Complaint: SURGERY COMPLICATION - Chief complaint Chief Complaint: Ext Problem - History obtained from History obtained from: Patient, Family - History of Present Illness Timing: Today Pain level max: 7 Pain level now: 2 - Additonal information Additional information: 70-year-old female 2 days status post a right distal radius fracture repair. She states increased swelling and pain today. Nothing makes it better or worse. Has been elevating the arm at home. Review of Systems Constitutional: denies: Fever, Chills GI: denies: Vomiting Skin: denies: Rash Neurologic: denies: Headache PD PAST MEDICAL HISTORY - Past Medical History Cardiovascular: Hypertension, High cholesterol Respiratory: COPD, Emphysema, Sleep apnea, CPAP use Endocrine/Autoimmune: HyPOthyroidism GI: GERD : Incontinence, Kidney stones HEENT: None Psych: None Musculoskeletal: None Derm: None - Past Surgical History Past Surgical History: Yes General: Colonoscopy Ortho: Other - Present Medications Home Medications: Ambulatory Orders Medication Instructions Recorded Confirmed Ascorbic Acid [Vitamin C] 1,000 mg PO BID 11/18/14 12/11/20 Multivitamin [Multivitamins] 1 tab PO DAILY 11/18/14 12/11/20 Ubidecarenone [Coenzyme Q10] 1 tab PO DAILY 11/18/14 12/11/20 Vitamin B Complex Vit C No.4 1 tab PO DAILY 11/18/14 12/11/20 [Super B Complex] Alendronate [Fosamax] 70 mg PO .ONE PER WEEK 09/24/20 12/11/20 Ipratropium/Albuterol [Combivent 1 puffs INH QID 09/24/20 12/11/20 Respimat] Irbesartan/Hydrochlorothiazide 1 tab PO DAILY 09/24/20 12/11/20 [Avalide 300-12.5 mg Tablet] Magnesium Chloride [Slow-Mag] 1 tab PO DAILY 09/24/20 12/11/20 Atenolol [Tenormin] 50 mg PO BID 09/25/20 12/11/20 Atorvastatin [Lipitor] 20 mg PO DAILY 09/25/20 12/11/20 Levothyroxine [Synthroid] 88 mcg PO DAILY 09/25/20 12/11/20 Aspirin EC [Ecotrin] 81 mg PO BID #30 mg 03/01/21 05/13/21 - Allergies Allergies/Adverse Reactions: Allergies Allergy/AdvReac Type Severity Reaction Status Date / Time beclomethasone dipropionate * Allergy Unknown Verified 12/14/20 13:47 [From Qvar] ciprofloxacin [From Cipro] Allergy Unknown Verified 12/14/20 13:47 ciprofloxacin HCl * Allergy Unknown Verified 12/14/20 13:47 [From Cipro] metronidazole Allergy Unknown Verified 12/14/20 13:47 Sulfa (Sulfonamide Allergy Unknown Verified 12/14/20 13:47 Antibiotics) - Social History Does the pt smoke?: No Smoking Status: Never smoker Does the pt drink ETOH?: Yes Does the pt have substance abuse?: No - Immunizations Immunizations are current?: Yes - POLST Patient has POLST: No POLST Status: Full Code PD ED PE NORMAL - Vitals Vital signs reviewed: Yes - General General: Alert and oriented X 3, No acute distress - HEENT HEENT: Moist mucous membranes - Derm Derm: Warm and dry - Extremities Extremities: Other (David bandage was removed in triage. There is mild residual swelling. No numbness or tingling. Neurovascular intact. Patient feels better) - Neuro Neuro: Alert and oriented X 3 Results - Vitals Vitals: Vital Signs - 24 hr 12/14/20 13:42 Temperature 36.9 C Heart Rate 74 Respiratory 16 Rate Blood Pressure 138/76 H O2 Saturation 99 Oxygen O2 Source Room air Procedures - Splint (location) R wrist Splint applied by: Physician, Tech Type of splint: Fiberglass, Short arm, Volar cock up Other: Patient tolerated well, No complications, Neurovascular intact PD MEDICAL DECISION MAKING - ED course Complexity details: considered differential, d/w patient, d/w family ED course: Patient with increased swelling postoperatively today in the right arm. David wrap overlying the splint was removed. Symptoms resolved. Feels much better. The volar splint was replaced as there were edges of fiberglass exposed. Patient tolerated well. She will follow up with orthopedics tomorrow. Neurovascularly in tact. Patient counseled regarding signs and symptoms for which I believe and urgent re-evaluation would be necessary. Patient with good understanding of and agreement to plan and is comfortable going home at this time This document was made in part using voice recognition software. While efforts are made to proofread this document, sound alike and grammatical errors may occur. Departure - Departure Disposition: 01 Home, Self Care Clinical Impression: Aftercare for cast or splint check or change Condition: Good Instructions: ED Splint Care Fiberglass Follow-Up: Trevin Swann MD [Provider Admit Priv/Credential] - Tomorrow Comments: Follow up with Dr. Swann tomorrow for further care. Return if you worsen.
[2020-12-14 15:31] VITALS: BP 157/84
== END 2020-12-14 15:31 | disposition home or self-care (01) ==
LOC: ED 13:22
DX: M25.531 Pain in right wrist (principal); S52.501A Unspecified fracture of the lower end of right radius, initial encounter for closed fracture; X58.XXXA Exposure to other specified factors, initial encounter; Z98.890 Other specified postprocedural states; I10 Essential (primary) hypertension
CPT/HCPCS: 29125; 99282

== ENCOUNTER 2020-12-17 15:02 | Outpatient (CLI) | payer MEDICARE, OTHER ==
--- NOTE | 2020-12-17 15:54 | SLEEP CARE CONSULTATION ---
Information from patient questionnaire entered by Wendy Jarquin. I have reviewed and concur with the information entered by Wendy Jarquin. This document represents the service I personally performed and the decisions made by , Mari Ochoa ARNP. History of Present Illness Service Date and Time: 12/17/2020 1502 Reason for Visit: New patient, Previously diagnosed sleep apnea (mild - AHI - 7.5 in 2007), sleep apnea on CPAP therapy ([facility]), Re-establish care (last seen 2015) Chief Complaint: reports: Other (update supplies) Date of Onset: 20 years ? Usual bedtime: 11 pm Time it takes to fall asleep: 15 minutes Snores at night: Yes Observed to quit breathing while asleep: Yes Number of times waking at night: 2 Reasons for waking at night: reports: Other (unknown reasons) Toss, Turn, or Twitch while sleeping: Yes Recalls having dreams: No Usually gets out of bed at: 8 am Feels refreshed in the morning: Yes Morning headache: No Sleepy or fatigued during the day: Yes Ever fallen asleep while driving: No Takes day naps: Yes Dreams during day naps: No Prior sleep studies: Yes Year and Where: 2007 - [facility] Type of Sleep Study: Polysomnography Additional HPI information: ANDREW SHAH was last diagnosed to have mild, AHI 7.5, obstructive sleep apnea- hypopnea syndrome and comes in today with caregiver Taryn to re-establish care f or CPAP therapy. - Parasomnia Symptoms Ever been unable to move upon waking from sleep: No Walks in sleep: No Talks in sleep: No Ever acted out dreams in sleep: No Ever felt weak in the knees when startled or emotional: No Bothered by creepy, crawly, restless sensations in legs: Yes Problems with memory or concentration: No CPAP Compliance Data Compliance data discussion: She is using [facility] for her supplies but needs an updated prescription faxed over. She uses a Wisp style mask. She needs to update her supplies. She uses her machine every night. She forgot to bring in her SD card to download compliance information. She thinks her pressure is still set at 8 cmH2O. Subjective Patient concerns: denies: aerophagia, mask discomfort, air blowing in eyes, mask leak noise, condensation in mask/hose, nasal congestion, dry mouth, nose, throat, epistaxis, other Observed to snore while using device: No Current pressure setting perceived as: comfortable On therapy, patient: reports: sleeping better, awakening more refreshed, being more awake and alert during the day, more rested overall. 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 Patient is / and lives in [place] Have you smoked in the past 12 months: No Cigarettes per day (20/pack): 30 Years of smokin Quit date: 2011 Smoking Pack Years: 45.0 Alcohol use: Yes Alcohol amount and frequency: 1 drink occassionally Caffeine use: Yes Caffeine amount and frequency: 1 drink occasionally Family History Family history of sleep disordered breathing: Yes Family Hx Sleep Apnea: Mother: Snoring, Sleep apnea - Treated, Sibling: Snoring, Sleep apnea - Treated Allergies and Home Medications Drug allergies reviewed: Yes (see list in chart) Home medication list reviewed: Yes Allergy and home medication list: Irbesartan/HCTZ Prevagen Levothyroxine Culturelle Alendronate, Tuesday only Klor-Con Ibuprofen Atenolol Krill oil Acetyl/L Carnitine HCI Atorvastatin Garlic D3 Aspirin C with richie hips 50+ Adult multivitamin B-complex with vitamin C CoQ10 Ginkgo Biloba Oxycodone, new since injury Review of Systems Cardiovascular: reports: high blood pressure Respiratory: reports: shortness of breath Gastrointestinal: denies: heartburn Urinary: reports: frequency Neurological: denies: headaches Ear/Nose/Throat: reports: dry mouth/throat (mouth), wisdom teeth removed. denies: tonsillectomy Endocrine: reports: thyroid disease Immunologic: denies: allergies to food or environment Physical Exam Blood Pressure: 124/69 Cuff size: wrist Heart Rate: 80 O2 Saturation: 97 Height: 5 ft 4 in Weight: 156 lb Body Mass Index: 26.7 BMI Classification: Overweight Heart: regular rate and rhythm Lungs: clear bilaterally Impression and Plan 1. Obstructive Sleep Apnea-Hypopnea Syndrome, mild, with unknown treatment compliance and unknown apnea control. On CPAP therapy, the patient has better sleep quality and is more rested overall. Her caregiver Taryn and patient will bring in the compliance report. I will then be able to write prescription to update supplies. Patient has a very old machine and would like to update it. Since the patients CPAP is over 5 years old and of reasonable use it can be updated. A DWO prescription will be made once we receive the compliance information. Compliance guidelines for new device and follow up discussed. She and her caregiver voiced understanding and agreement with plan of care. Patient's apnea severity and rationale for treatment to reduce apnea, improve sleep quality and reduce cardiovascular and cerebrovascular events was reviewed. I also reviewed the benefit of consistent device use of CPAP for hypertension, COPD and fibromyalgia. * Obtain compliance report to verify compliance and apnea control * Update machine and supplies * Notify me if snoring with mask or feeling that the pressure is too much or too little * Try to lose weight * Call this office if any problems using CPAP * Return for follow up 1 month after obtaining new machine, or sooner if concerns arise Counseling Topics: Spare mask, Weight loss health impact Visit Type: In Office Time Spent with Patient (minutes): 31 Provider Statement: I spent 100% of the Face to Face Visit with the patient with greater than 50% spent counseling the patient and coordination of care.
[2020-12-17 15:55] VITALS: BP 124/69
== END 2020-12-17 15:03 | disposition home or self-care (01) ==
LOC: SC 15:02
PROVIDERS: ATTEND Nurse Practitioner Family
DX: G47.33 Obstructive sleep apnea (adult) (pediatric) (principal); E66.3 Overweight; Z68.26 Body mass index [BMI] 26.0-26.9, adult
CPT/HCPCS: 99203; G0463; 99212

== ENCOUNTER 2021-01-08 13:06 | Outpatient (CLI) | payer MEDICARE, OTHER ==
--- NOTE | 2021-01-08 13:35 | XRAY Report ---
PROCEDURE: Wrist 3 View RT INDICATIONS: POST OP CARE FROM FX OF DISTAL R RADIUS TECHNIQUE: 3 views of the wrist were acquired. COMPARISON: Preoperative 12/08/2020 acute trauma plain films of the wrist reviewed. FINDINGS: Bones: No fractures or dislocations. No suspicious bony lesions. Scaphoid view: Not obtained but the scaphoid visualized has appeared free of fracture. Soft tissues: No suspicious soft tissue calcifications. IMPRESSION: K wire fracture fixation through the distal radius in near anatomic alignment established after close d reduction. Normal alignment for healing. Reviewed by: Osmin Bates MD on 01/08/2021 1:33 PM PDT Approved by: Osmin Bates MD on 01/08/2021 1:33 PM PDT Station ID: [id number]
== END 2021-01-08 23:59 | disposition home or self-care (01) ==
LOC: DI.N 13:06
PROVIDERS: ATTEND Physician Assistant
DX: S52.571D Other intraarticular fracture of lower end of right radius, subsequent encounter for closed fracture with routine healing (principal)

== ENCOUNTER 2021-01-22 15:23 | Outpatient (CLI) | payer MEDICARE, OTHER ==
--- NOTE | 2021-01-22 16:32 | XRAY Report ---
PROCEDURE: Wrist 3 View RT INDICATIONS: FRACTURE OF LOWER END OF RIGHT RADIUS TECHNIQUE: 3 views of the wrist were acquired. COMPARISON: 01/08/2021 FINDINGS: Unchanged alignment of fixation of the distal radius. The hardware appears intact. No evidence of mohan dware loosening. Trace the first CMC joint degeneration is noted. The distal radioulnar osteoarthriti s. Soft tissues: No suspicious soft tissue calcifications. IMPRESSION: Unchanged alignment. Reviewed by: Hollis Martinez MD on 01/22/2021 4:31 PM PDT Approved by: Hollis Martinez MD on 01/22/2021 4:31 PM PDT Station ID: [id number]
== END 2021-01-22 23:59 | disposition home or self-care (01) ==
LOC: DI.N 15:23
PROVIDERS: ATTEND Physician Assistant
DX: S52.501D Unspecified fracture of the lower end of right radius, subsequent encounter for closed fracture with routine healing (principal)

== ENCOUNTER 2021-02-19 14:19 | Outpatient (CLI) | payer MEDICARE, OTHER ==
--- NOTE | 2021-02-19 15:37 | SLEEP CARE CONSULTATION ---
Information from patient questionnaire entered by Wendy Jarquin. I have reviewed and concur with the information entered by Wendy Jarquin. This document represents the service I personally performed and the decisions made by , Mari Ochoa ARNP. History of Present Illness Service Date and Time: 02/19/2021 1419 Previous diagnosis: Mild, Obstructive Sleep Apnea-Hypopnea Syndrome AHI: 7.5 (in 2007) Reason for follow up: first compliance after device update Equipment type: CPAP Equipment obtained from: [facility] (getting supplies as needed) Mask style: Nasal (over the nose) Backup mask available: Yes (old mask) Last cushion change: 1 month Prior sleep studies: Yes Year and Where: 2007 - [facility] Type of Sleep Study: Polysomnography HPI additional information: ANDREW SHAH was diagnosed to have mild, AHI 7.5, obstructive sleep apnea- hypopnea syndrome and returned today with caregiver for CPAP therapy first compliance after updating device follow-up. CPAP Compliance Data - Data Reviewed with Patient Average duration of nightly device use: 7 hr 14 min Compliance rate %: 73.3 Current pressure setting (cmH2O): 8 Humidity settin Heated hose settin Average residual AHI: 4.0 Average large leak: 48 sec Subjective Missed days of use due to: reports: other (using old machine) Patient concerns: reports: air blowing in eyes, mask leak noise, dry mouth, nose, throat (dry mouth, sometimes; has water at bedside if needed), other (new device asking for a new filter ever 3 days). denies: aerophagia, mask discomfort, condensation in mask/hose, nasal congestion, epistaxis Observed to snore while using device: No Current pressure setting perceived as: comfortable On therapy, patient: reports: sleeping better, awakening more refreshed, being more awake and alert during the day, more rested overall. denies: drowsiness while driving Initial [place] Sleepiness Scale score: 6 (in 2007) Current [place] Sleepiness Scale score: 12 Allergies and Home Medications Home medication list reviewed: Yes (no changes) Review of Systems Review of systems same as previous: Yes (no changes) Physical Exam Heart Rate: 79 O2 Saturation: 95 Height: 5 ft 4 in Weight: 168 lb Body Mass Index: 28.8 BMI Classification: Overweight Impression and Plan 1. Obstructive Sleep Apnea-Hypopnea Syndrome, mild, with fair treatment compliance and good apnea control. On CPAP therapy, the patient has better sleep quality and is more rested overall. She has stopped using her machine and is using the old device because the new machine is giving her an message to change the filter every 3 days and will not work until the filter is changed. I will write a prescription to have the machine serviced. She voiced understanding. Patient's apnea severity and rationale for treatment to reduce apnea, improve sleep quality and reduce cardiovascular and cerebrovascular events was reviewed. I also reviewed the benefit of consistent device use of CPAP for hypertension, COPD and fibromyalgia. * Continue autoCPAP pressure at 8 cmH2O * Service machine for filter changing alert every 3 days * Notify me if snoring with mask or feeling that the pressure is too much or too little * Attempt to lose weight * Call this office if any problems using CPAP * Return for follow up in 1 year, or sooner if concerns arise Counseling Topics: Spare mask, Weight loss health impact Visit Type: In Office Time Spent with Patient (minutes): 20 Provider Statement: I spent 100% of the Face to Face Visit with the patient with greater than 50% spent counseling the patient and coordination of care.
== END 2021-02-19 14:20 | disposition home or self-care (01) ==
LOC: SC 14:19
PROVIDERS: ATTEND Nurse Practitioner Family
DX: G47.33 Obstructive sleep apnea (adult) (pediatric) (principal)
CPT/HCPCS: 99213; G0463; 99212

== ENCOUNTER 2021-03-19 13:15 | Outpatient (CLI) | payer MEDICARE, OTHER ==
--- NOTE | 2021-03-19 14:53 | XRAY Report ---
PROCEDURE: Wrist 3 View RT INDICATIONS: INTRAARTICULAR FX OF DISTAL R RADIUS TECHNIQUE: 3 views of the wrist were acquired. COMPARISON: None. FINDINGS: Unchanged alignment of the distal radius, status post removal of surgical fixation. There is residual impacted appearance. Scattered subchondral sclerosis and spurring. Distal radioulnar joint degenera tion. Soft tissues: No suspicious soft tissue calcifications. IMPRESSION: Unchanged alignment of distal radial fracture. Degenerative changes as above. Reviewed by: Hollis Martinez MD on 03/19/2021 2:52 PM PDT Approved by: Hollis Martinez MD on 03/19/2021 2:52 PM PDT Station ID: [id number]
== END 2021-03-19 23:59 | disposition home or self-care (01) ==
LOC: DI.N 13:15
PROVIDERS: ATTEND Physician Assistant
DX: S52.571A Other intraarticular fracture of lower end of right radius, initial encounter for closed fracture (principal); M19.031 Primary osteoarthritis, right wrist

== ENCOUNTER 2021-05-05 16:39 | Outpatient (CLI) | payer MEDICARE, OTHER ==
--- NOTE | 2021-05-06 01:04 | Ultrasound Report ---
PROCEDURE: Duplex Ext Veins Right INDICATIONS: PERIPHERAL VASCULAR DISEASE TECHNIQUE: Real-time imaging, as well as color and pulse Doppler interrogation, were performed of the lower extr emity deep veins from the inguinal ligament to the popliteal fossa. COMPARISON: None. FINDINGS: The deep veins are normally compressible, and free of intraluminal thrombus. Color and pu lse Doppler demonstrate normal phasic intraluminal flow. There is normal augmentation response to di stal compression maneuver. IMPRESSION: Negative duplex venous ultrasound of the right lower extremity for DVT. Reviewed by: Blake Liang MD on 05/06/2021 1:02 AM PDT Approved by: Blake Liang MD on 05/06/2021 1:02 AM PDT Station ID: [id number]
== END 2021-05-05 16:40 | disposition home or self-care (01) ==
LOC: DI 16:39
PROVIDERS: ATTEND Family Medicine
DX: I73.9 Peripheral vascular disease, unspecified (principal)

== ENCOUNTER 2021-08-06 07:00 | Outpatient (CLI) | payer MEDICARE, OTHER ==
[2021-08-06 18:42] LABS: BASOPHILS % (AUTO) 0.4 %; EOSINOPHILS # (AUTO) 0.1 10^3/uL (0.0-0.7); EOSINOPHILS % (AUTO) 1.3 %; HCT - HEMATOCRIT 44.9 % (37.0-47.0); HGB - HEMOGLOBIN 15.1 g/dL (12.0-16.0); LYMPHOCYTES % (AUTO) 21.7 %; MEAN CORPUSCULAR HGB CONC 33.6 g/dL (32.0-36.0); MEAN CORPUSCULAR VOLUME 89.3 fL (81.0-99.0); MONOCYTES # (AUTO) 0.6 10^3/uL (0.0-1.0); MONOCYTES % (AUTO) 6.9 %; NEUTROPHILS # (AUTO) 6.3 10^3/uL (1.5-6.6); NEUTROPHILS % (AUTO) 69.3 %; PLT - PLATELET COUNT 227 10^3/uL (130-450); RED BLOOD COUNT 5.03 10^6/uL (4.20-5.40); RED CELL DISTRIBUTION WIDTH 12.6 % (12.0-15.0); WHITE BLOOD COUNT 9.2 x10^3/uL (4.8-10.8)
[2021-08-06 19:03] LABS: ALBUMIN 4.3 g/dL (3.2-5.5); ALBUMIN/GLOBULIN RATIO 1.4 (1.0-2.2); ALKALINE PHOSPHATASE 68 IU/L (42-121); ALT ALANINE AMINOTRANSFERASE 18 IU/L (10-60); AST ASPARTATE AMINOTRANSFERASE 23 IU/L (10-42); BILIRUBIN,TOTAL 1.1 mg/dL (0.2-1.0); BUN - BLOOD UREA NITROGEN 24 mg/dL (6-20); CALCIUM 9.4 mg/dL (8.5-10.3); CARBON DIOXIDE - CO2 27 mmol/L (21-32); CHLORIDE 103 mmol/L (101-111); CHOL/HDL RATIO 4.8 (<4.4); CHOLESTEROL 172 mg/dL; CREATININE 0.9 mg/dL (0.4-1.0); GFR - MDRD 62 (>89); GLUCOSE 121 mg/dL (70-100); HDL CHOLESTEROL 36 mg/dL; LDL CHOLESTEROL,CALCULATED 79 mg/dL; LDL/HDL RATIO 2.2 (<4.4); POTASSIUM 3.5 mmol/L (3.5-5.0); SODIUM 141 mmol/L (135-145); TOTAL PROTEIN 7.4 g/dL (6.7-8.2); TRIGLYCERIDES 283 mg/dL; VLDL CHOLESTEROL 57 mg/dL
[2021-08-06 19:06] LABS: THYROID STIMULATING HORMONE 0.59 uIU/mL (0.34-5.60)
[2021-08-06 21:13] LABS: ESTIMATED AVERAGE GLUCOSE 108 mg/dL (70-100); HEMOGLOBIN A1c% 5.4 % (4.27-6.07)
== END 2021-08-06 23:59 | disposition home or self-care (01) ==
LOC: LAB.WCP 07:00
PROVIDERS: ATTEND Family Medicine
DX: G31.84 Mild cognitive impairment of uncertain or unknown etiology (principal); E78.5 Hyperlipidemia, unspecified; R73.01 Impaired fasting glucose
CPT/HCPCS: 36415; 80053; 80061; 82607; 83036; 83721; 84443; 85025; 86592

== ENCOUNTER 2022-02-11 22:33 | Emergency (ER) | payer MEDICARE, OTHER ==
--- NOTE | 2022-02-11 23:28 | ED Physician Documentation ---
History of Present Illness - Stated complaint Stated Complaint: DIZZY - Chief complaint Chief Complaint: Neuro - Additonal information Additional information: Patient is 71-year-old female presenting to the emergency department with chief complaint of dizziness and numbness. Reports has been having intermittent episodes of feeling dizzy which she describes as a "head fog sensation" for the last 3 days. Contacted her friend today in order to request a ride to the emergency department and the friend who is present at bedside reports at that time she was slurring her speech. She denies similar episodes in the past. Denies any history of stroke. Does report history of hypertension for which she takes losartan and atenolol. Cannot delineate a last known well but reports that her symptoms have been coming and going for several hours at a minimum. Review of Systems Ten Systems: 10 systems reviewed and negative Constitutional: denies: Fever Eyes: denies: Loss of vision Ears: denies: Loss of hearing Nose: denies: Rhinorrhea / runny nose Throat: denies: Dental pain / toothache Cardiac: denies: Chest pain / pressure Respiratory: denies: Dyspnea GI: denies: Abdominal Pain : denies: Dysuria Skin: denies: Rash Musculoskeletal: denies: Neck pain Neurologic: reports: Difficulty speaking. denies: Generalized weakness, Focal weakness, Numbness, Near syncope, Syncope, Seizure, Confused, Altered mental status, Unresponsive, Headache, Head injury, LOC PD PAST MEDICAL HISTORY - Past Medical History Cardiovascular: Hypertension, High cholesterol Respiratory: COPD, Emphysema, Sleep apnea, CPAP use Endocrine/Autoimmune: HyPOthyroidism GI: GERD : Incontinence, Kidney stones HEENT: None Psych: None Musculoskeletal: None Derm: None - Past Surgical History Past Surgical History: Yes General: Colonoscopy Ortho: Other - Present Medications Home Medications: Ambulatory Orders Medication Instructions Recorded Confirmed Ascorbic Acid [Vitamin C] 1,000 mg PO BID 11/18/14 12/11/20 Multivitamin [Multivitamins] 1 tab PO DAILY 11/18/14 12/11/20 Ubidecarenone [Coenzyme Q10] 1 tab PO DAILY 11/18/14 12/11/20 Vitamin B Complex Vit C No.4 1 tab PO DAILY 11/18/14 12/11/20 [Super B Complex] Alendronate [Fosamax] 70 mg PO .ONE PER WEEK 09/24/20 12/11/20 Ipratropium/Albuterol [Combivent 1 puffs INH QID 09/24/20 12/11/20 Respimat] Irbesartan/Hydrochlorothiazide 1 tab PO DAILY 09/24/20 12/11/20 [Avalide 300-12.5 mg Tablet] Magnesium Chloride [Slow-Mag] 1 tab PO DAILY 09/24/20 12/11/20 Atenolol [Tenormin] 50 mg PO BID 09/25/20 12/11/20 Atorvastatin [Lipitor] 20 mg PO DAILY 09/25/20 12/11/20 Levothyroxine [Synthroid] 88 mcg PO DAILY 09/25/20 12/11/20 Aspirin EC [Ecotrin] 81 mg PO BID #30 mg 09/29/20 12/11/20 - Allergies Allergies/Adverse Reactions: Allergies Allergy/AdvReac Type Severity Reaction Status Date / Time beclomethasone dipropionate * Allergy Unknown Verified 02/11/22 22:48 [From Qvar] ciprofloxacin [From Cipro] Allergy Unknown Verified 02/11/22 22:48 ciprofloxacin HCl * Allergy Unknown Verified 02/11/22 22:48 [From Cipro] metronidazole Allergy Unknown Verified 02/11/22 22:48 Sulfa (Sulfonamide Allergy Unknown Verified 02/11/22 22:48 Antibiotics) - Social History Does the pt smoke?: No Smoking Status: Never smoker Does the pt drink ETOH?: Yes Does the pt have substance abuse?: No - Immunizations Immunizations are current?: Yes - POLST Patient has POLST: No POLST Status: Full Code PD ED PE NORMAL - General General: Alert and oriented X 3 - HEENT HEENT: Atraumatic - Neck Neck: Supple, no meningeal sign - Cardiac Cardiac: RRR - Respiratory Respiratory: No respiratory distress - Abdomen Abdomen: Normal bowel sounds - Female Female : Deferred - Rectal Rectal: Deferred - Back Back: No CVA TTP - Derm Derm: Normal color - Extremities Extremities: No deformity, No tenderness to palpate, Normal ROM s pain, No edema, No calf tenderness / cord - Neuro Neuro: Alert and oriented X 3, 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, No motor deficit, No sensory deficit, Normal speech Results - Vitals Vitals: Vital Signs - 24 hr 02/11/22 02/12/22 02/12/22 22:46 00:48 02:00 Temperature 36.7 C Heart Rate 79 70 71 Respiratory 18 16 18 Rate Blood Pressure 147/76 H 168/95 H O2 Saturation 93 97 97 02/12/22 02/12/22 03:22 05:22 Temperature Heart Rate 64 65 Respiratory 16 15 Rate Blood Pressure 148/98 H 172/84 H O2 Saturation 98 98 Oxygen O2 Source Room air - EKG (time done) 2318 Rate: Rate (enter#) (72) Rhythm: NSR [place]: Normal Intervals: Normal [place] QRS: Normal Ischemia: Normal ST segments Computer interpretation: Agree with computer - Labs Labs: Laboratory Tests 02/11/22 02/11/22 02/11/22 23:47 23:47 23:47 WBC 8.6 RBC 5.01 Hgb 15.5 Hct 44.6 MCV 89.0 MCH 30.9 MCHC 34.8 RDW 12.3 Plt Count 215 MPV 10.7 Neut # (Auto) 5.8 Lymph # (Auto) 1.9 [place] # (Auto) 0.7 Eos # (Auto) 0.2 Baso # (Auto) 0.0 Absolute Nucleated RBC 0.00 Nucleated RBC % 0.0 PT 10.8 INR 1.0 Sodium 140 Potassium 3.9 Chloride 102 Carbon Dioxide 26 Anion Gap 12.0 BUN 19 Creatinine 1.0 Estimated GFR (MDRD) 55 L Glucose 119 H Calcium 10.2 Magnesium 2.4 Total Bilirubin 0.6 AST 22 ALT 21 Alkaline Phosphatase 66 Troponin I High Sens Total Protein 7.2 Albumin 4.2 Globulin 3.0 Albumin/Globulin Ratio 1.4 Lipase 37 TSH Urine Color Urine Clarity Urine pH Ur Specific [place] Urine Protein Urine Glucose (UA) Urine Ketones Urine Occult Blood Urine Nitrite Urine Bilirubin Urine Urobilinogen Ur Leukocyte Esterase Ur Microscopic Review Urine Culture Comments Urine Opiates Screen Ur Oxycodone Screen Urine Methadone Screen Ur Propoxyphene Screen Ur Barbiturates Screen Ur Tricyclics Screen Ur Phencyclidine Scrn Ur Amphetamine Screen U Methamphetamines Scrn U Benzodiazepines Scrn Urine Cocaine Screen U Cannabinoids Screen Ethyl Alcohol < 5.0 SARS-CoV-2 (PCR) 02/11/22 02/11/22 02/11/22 23:47 23:47 23:47 WBC RBC Hgb Hct MCV MCH MCHC RDW Plt Count MPV Neut # (Auto) Lymph # (Auto) [place] # (Auto) Eos # (Auto) Baso # (Auto) Absolute Nucleated RBC Nucleated RBC % PT INR Sodium Potassium Chloride Carbon Dioxide Anion Gap BUN Creatinine Estimated GFR (MDRD) Glucose Calcium Magnesium Total Bilirubin AST ALT Alkaline Phosphatase Troponin I High Sens 4.3 Total Protein Albumin Globulin Albumin/Globulin Ratio Lipase TSH 0.48 Urine Color Urine Clarity Urine pH Ur Specific [place] Urine Protein Urine Glucose (UA) Urine Ketones Urine Occult Blood Urine Nitrite Urine Bilirubin Urine Urobilinogen Ur Leukocyte Esterase Ur Microscopic Review Urine Culture Comments Urine Opiates Screen Ur Oxycodone Screen Urine Methadone Screen Ur Propoxyphene Screen Ur Barbiturates Screen Ur Tricyclics Screen Ur Phencyclidine Scrn Ur Amphetamine Screen U Methamphetamines Scrn U Benzodiazepines Scrn Urine Cocaine Screen U Cannabinoids Screen Ethyl Alcohol SARS-CoV-2 (PCR) NOT DETECTED 02/11/22 02/11/22 23:47 23:47 WBC RBC Hgb Hct MCV MCH MCHC RDW Plt Count MPV Neut # (Auto) Lymph # (Auto) [place] # (Auto) Eos # (Auto) Baso # (Auto) Absolute Nucleated RBC Nucleated RBC % PT INR Sodium Potassium Chloride Carbon Dioxide Anion Gap BUN Creatinine Estimated GFR (MDRD) Glucose Calcium Magnesium Total Bilirubin AST ALT Alkaline Phosphatase Troponin I High Sens Total Protein Albumin Globulin Albumin/Globulin Ratio Lipase TSH Urine Color YELLOW Urine Clarity CLEAR Urine pH 6.0 Ur Specific [place] 1.025 Urine Protein NEGATIVE Urine Glucose (UA) NEGATIVE Urine Ketones NEGATIVE Urine Occult Blood TRACE-INTA Urine Nitrite NEGATIVE Urine Bilirubin NEGATIVE Urine Urobilinogen 0.2 (NORMAL) Ur Leukocyte Esterase NEGATIVE Ur Microscopic Review NOT INDICATED Urine Culture Comments NOT INDICATED Urine Opiates Screen NEGATIVE Ur Oxycodone Screen NEGATIVE Urine Methadone Screen NEGATIVE Ur Propoxyphene Screen NEGATIVE Ur Barbiturates Screen NEGATIVE Ur Tricyclics Screen NEGATIVE Ur Phencyclidine Scrn NEGATIVE Ur Amphetamine Screen NEGATIVE U Methamphetamines Scrn NEGATIVE U Benzodiazepines Scrn NEGATIVE Urine Cocaine Screen NEGATIVE U Cannabinoids Screen POSITIVE H Ethyl Alcohol SARS-CoV-2 (PCR) PD MEDICAL DECISION MAKING - ED course Complexity details: reviewed results, re-evaluated patient, d/w patient ED course: Patient is a 71-year-old female presenting to the emergency department with report of episodes of confusion, dizziness, foggy thinking as well as a speech disturbance that happened earlier this evening. Was accompanied by a friend who was present at bedside who reported that earlier today patient had slurred speech and seemed to be having difficulty forming words over the phone. Patient reports that she has had 3 similar episodes over the course of the last few days. Reports that she has been having difficulties with memory for greater than a year. Did not report any clear or lateralizing focal neurologic deficits. On arrival to the emergency department reported ongoing sensation of dizziness and Foggy thinking but did not have any focal or lateralizing neurologic deficits on exam. Initial NIHSS score 0. I did obtain comprehensive labs and imaging. These were benign with the exception of a finding the patient CTAConcerning for in age-indeterminate infarct that was also identified at least in part on MRI in 2015. Patient did not have any knowledge of a previous CVA. On reevaluation she reported total resolution of all of her symptoms. Her presentation overall however is very concerning for stuttering or recurrent transient ischemic attacks. I ordered for full dose aspirin in the emergency department. Unfortunately at this time MRI is unavailable at our facility. Patient was waitlisted at multiple facilities locally however due to regional bed crisis time to transfer is likely to be delayed. At this time I will be signing her out to the oncoming physician, please see their documentation for further detail. Final clinical impression, transient ischemic attack. Departure - Departure Clinical Impression: TIA (transient ischemic attack)
[2022-02-11 23:53] LABS: MUDS CUTOFF CONCENTRATIONS CUTOFF CONC BELOW:
[2022-02-11 23:56] LABS: BILIRUBIN,URINE NEGATIVE (NEGATIVE); GLUCOSE, URINE (UA) NEGATIVE (NEGATIVE); KETONES,URINE (UA) NEGATIVE (NEGATIVE); LEUKOCYTE ESTERASE, URINE NEGATIVE (NEGATIVE); NITRITE,URINE NEGATIVE (NEGATIVE); OCCULT BLOOD,URINE TRACE-INTA (NEGATIVE); PROTEIN,URINE NEGATIVE (NEGATIVE); UROBILINOGEN,URINE 0.2 (NORMAL) E.U./dL (NORMAL)
[2022-02-11 23:59] LABS: BASOPHILS % (AUTO) 0.5 %; EOSINOPHILS # (AUTO) 0.2 10^3/uL (0.0-0.7); HCT - HEMATOCRIT 44.6 % (37.0-47.0); HGB - HEMOGLOBIN 15.5 g/dL (12.0-16.0); LYMPHOCYTES # (AUTO) 1.9 10^3/uL (1.5-3.5); LYMPHOCYTES % (AUTO) 21.8 %; MEAN CORPUSCULAR HEMOGLOBIN 30.9 pg (27.0-31.0); MEAN CORPUSCULAR HGB CONC 34.8 g/dL (32.0-36.0); MEAN PLATELET VOLUME 10.7 fL (7.9-10.8); MONOCYTES # (AUTO) 0.7 10^3/uL (0.0-1.0); MONOCYTES % (AUTO) 7.6 %; NEUTROPHILS # (AUTO) 5.8 10^3/uL (1.5-6.6); NEUTROPHILS % (AUTO) 67.6 %; PLT - PLATELET COUNT 215 10^3/uL (130-450); RED BLOOD COUNT 5.01 10^6/uL (4.20-5.40); RED CELL DISTRIBUTION WIDTH 12.3 % (12.0-15.0); WHITE BLOOD COUNT 8.6 x10^3/uL (4.8-10.8)
[2022-02-12 00:06] LABS: AMPHETAMINE SCREEN,URINE NEGATIVE (NEGATIVE); BARBITURATE SCREEN,UR NEGATIVE (NEGATIVE); BENZODIAZEPINES SCREEN, URINE NEGATIVE (NEGATIVE); COCAINE SCREEN URINE NEGATIVE (NEGATIVE); METHADONE SCREEN, URINE NEGATIVE (NEGATIVE); METHAMPHETAMINES SCREEN, URINE NEGATIVE (NEGATIVE); OPIATE SCREEN, URINE NEGATIVE (NEGATIVE); OXYCODONE SCREEN, URINE NEGATIVE (NEGATIVE); PROPOXYPHENE SCREEN, URINE NEGATIVE (NEGATIVE); THC CANNABINOID SCREEN, URINE POSITIVE (NEGATIVE); TRICYCLIC ANTIDEPRESSANT,URINE NEGATIVE (NEGATIVE)
[2022-02-12 00:07] LABS: CLARITY,URINE CLEAR (CLEAR); PT - PROTHROMBIN TIME 10.8 secs (9.9-12.6)
[2022-02-12] MEDS ORDERED: iohexoL-300 100 ML VIAL ONE (00:07)
[2022-02-12 00:24] LABS: ALBUMIN 4.2 g/dL (3.2-5.5); ALBUMIN/GLOBULIN RATIO 1.4 (1.0-2.2); ALKALINE PHOSPHATASE 66 IU/L (42-121); ALT ALANINE AMINOTRANSFERASE 21 IU/L (10-60); AST ASPARTATE AMINOTRANSFERASE 22 IU/L (10-42); BILIRUBIN,TOTAL 0.6 mg/dL (0.2-1.0); BUN - BLOOD UREA NITROGEN 19 mg/dL (6-20); CALCIUM 10.2 mg/dL (8.5-10.3); CARBON DIOXIDE - CO2 26 mmol/L (21-32); CHLORIDE 102 mmol/L (101-111); ETOH - ETHANOL < 5.0 mg/dL; GFR - MDRD 55 (>89); GLUCOSE 119 mg/dL (70-100); LIPASE 37 U/L (22-51); MAGNESIUM 2.4 mg/dL (1.7-2.8); POTASSIUM 3.9 mmol/L (3.5-5.0); SODIUM 140 mmol/L (135-145); TOTAL PROTEIN 7.2 g/dL (6.7-8.2)
[2022-02-12] MEDS ORDERED: iohexoL-300 100 ML VIAL IVP ONE (01:12)
--- NOTE | 2022-02-12 01:40 | CT Report ---
PROCEDURE: ANGIO HEAD W/WO INDICATIONS: L sided facial droop CONTRAST: IV CONTRAST: Isovue 300 ml: 80 PO CONTRAST: *NO PO CONTRAST TECHNIQUE: Precontrast 5 mm thick angled axial sections acquired from the foramen magnum to the vertex. After the administration of intravenous contrast, 1 mm thick sections acquired through the [place] of [place] . Postcontrast 4.5 mm thick sections then re-acquired from the foramen magnum to the vertex. 3-dime nsional ybsmpse-cvwhhgsto-tyufghpltm (MIP) and/or volume rendering reformats were acquired of the [facility] intracranial vasculature. For radiation dose reduction, the following was used: automated expo sure control, adjustment of mA and/or kV according to patient size. COMPARISON: MR brain 07/22/2015. FINDINGS: Image quality: Excellent. Anterior circulation: Intracranial internal carotid arteries are patent bilaterally. There is multi focal calcification along the cavernous segments of the internal carotid arteries bilaterally with as sociated mild multifocal narrowing. The paired anterior cerebral arteries are patent bilaterally. Th e middle cerebral arteries are also patent bilaterally. The anterior communicating artery is patent. No high-grade stenosis, occlusion, or discrete filling defects. No cerebral aneurysm identified. Posterior circulation: Visualized portions of the vertebral arteries appear patent and join to form a patent basilar artery. The posterior cerebral arteries are patent bilaterally. No high-grade steno sis, occlusion, or discrete filling defects. No cerebral aneurysm identified. CSF spaces: Basal cisterns are patent. No extra-axial fluid collections. Ventricles are normal in size and shape. Brain: No intracranial hemorrhage, mass, or mass effect. James-white matter interface appears preser sourav. There is a small region of left periventricular white matter hypodensity which is nonspecific an d may represent chronic white matter small vessel ischemic changes or sequelae of a prior infarct. No abnormal intracranial enhancement. Skull and face: Calvarium and facial bones appear intact, without suspicious lesions. Sinuses: Visualized sinuses and mastoids are clear. IMPRESSION: 1. No definite acute intracranial abnormality. 2. No high-grade stenosis or occlusion of the central intracranial arteries. 3. 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 Reviewed by: Vincent Zaman MD on 02/12/2022 1:39 AM PDT Approved by: Vincent Zaman MD on 02/12/2022 1:39 AM PDT Station ID: [id number]
--- NOTE | 2022-02-12 01:49 | CT Report ---
PROCEDURE: ANGIO NECK W INDICATIONS: L sided facial droop, L neck pain CONTRAST: IV CONTRAST: Isovue 300 ml: 80 PO CONTRAST: *NO PO CONTRAST TECHNIQUE: After the administration of intravenous contrast, 1.5 mm axial sections acquired from the aortic arch to the [place] of [place]. Coronal 3-D maximum intensity projection (MIP) and/or volume rendering ref ormats were then performed. For radiation dose reduction, the following was used: automated exposur e control, adjustment of mA and/or kV according to patient size. COMPARISON: Concurrent CTA of the head. FINDINGS: Image quality: There is mild motion artifact. Carotid system: The great vessels demonstrate a bovine aortic arch with common origin of the right b rachiocephalic and left common carotid arteries as they arise from the aortic arch. The origins of t he common carotid arteries appear patent. The common carotid arteries demonstrate normal calibers an d courses. The carotid bulbs appear widely patent bilaterally. The subsequent internal carotid arter ies demonstrate normal caliber and course. Posterior circulation: The origins of the vertebral arteries appear patent. The more superior porti ons of the vertebral arteries demonstrate normal course and caliber. They join to form a normal appe aring basilar artery. Soft tissues: Visualized neck soft tissues demonstrate no suspicious abnormalities. The visualized lungs demonstrate moderate to severe centrilobular emphysematous changes. Bones: No suspicious bony lesions. Visualized cervical spine demonstrates moderate multilevel degen erative disc disease and facet arthropathy. IMPRESSION: 1. No high-grade stenosis or occlusion of the head and neck arteries. The carotid bulbs appear widely patent. The estimate of stenosis included in the report of the imaging study was calculated using the NASCET method Reviewed by: Vincent Zaman MD on 02/12/2022 1:48 AM PDT Approved by: Vincent Zaman MD on 02/12/2022 1:48 AM PDT Station ID: [id number]
[2022-02-12] MEDS ORDERED: ASPIRIN 325 MG TABLET PO STA (02:13)
--- NOTE | 2022-02-12 15:06 | ED Physician Documentation ---
ED Addendum - Addendum Addendum: 02/12/22 15:05 I talked with the patient at bedside at this time. She has not had any of her dizzy episodes since last night. She says in contrast to Dr. Tinajero's note that she has been having on and off for a couple of weeks, it always happens in the evening when she sitting in her easy chair. It "brain fog". Not a spinning or lightheadedness per se. I asked her if it was associated with cannabis use and initially she told me she had not been using any drugs in years. I mentioned that her urine drug screen was positive for cannabis and she changed a bit and said she had been using a gummy every day for the last week and a half, but she does not think that is related. Regardless she has not had any dizzy episodes last night and at this point is comfortable with discharge. The original plan was to transfer her for MRI, but due to hospital capacity issues I suspect that will not happen for several days given the boarding situation and she requested discharge at that time. Disposition: Discharged home Condition: Stable Diagnoses: 1. Dizziness
[2022-02-12 15:07] VITALS: BP 144/92
== END 2022-02-12 15:19 | disposition home or self-care (01) ==
LOC: ED 22:33
DX: G45.9 Transient cerebral ischemic attack, unspecified (principal); Z20.822 Contact with and (suspected) exposure to COVID-19
CPT/HCPCS: 36415; 70496; 70498; 80053; 80306; 81003; 83690; 83735; 84443; 84484; 85025; 85610; 87635; 93005; 99283; 99284; A9270; G0480; Q9967; 80320; 81001; 87086

== ENCOUNTER → 2022-04-13 | Outpatient (CLI) | payer MEDICARE, OTHER | LOC: MAC.MOP 10:30 | PROVIDERS: ATTEND Family Medicine | DX: I47.1 Supraventricular tachycardia (principal); I49.1 Atrial premature depolarization; I49.3 Ventricular premature depolarization | CPT/HCPCS: 93244 ==

== ENCOUNTER 2022-07-08 08:05 | Outpatient (CLI) | payer MEDICARE, OTHER ==
--- NOTE | 2022-07-08 16:15 | DEXA Report ---
PROCEDURE: Dexa Spine and/or Hip INDICATIONS: POST MENOPAUSAL TECHNIQUE: Dual energy x-ray absorptiometry (DXA) was performed on a [employer]. Regions measur ed are the AP Spine, femoral neck, and if needed forearm. COMPARISON: 07/03/2019. FINDINGS: Lumbar Spine: Bone Mineral Density 1.084 g/cm/cm,T score -0.8. There is interval 11.4% increase in total lumbar spine bone mineral density. Left Femoral Neck: Bone Mineral Density 0.680 g/cm/cm, T score -2.6. Left Hip: Bone Mineral Density 0.805 g/cm/cm,T score -1.6. There is interval 6.2% increase in left total hip b one mineral density. (T score greater or equal to -1.0: NORMAL) (T score from -1.1 to -2.4: OSTEOPENIA) (T score less than or equal to -2.5 to: OSTEOPOROSIS) Impression: Osteoporosis. Patients with diagnosis of osteoporosis or osteopenia should have regular bone mineral density assess ment. For those eligible for Medicare, routine testing is allowed once every 2 years. Testing frequ ency can be increased for patients who have rapidly progressing disease or for those who are receivin g medical therapy to restore bone mass. Reviewed by: Nic Mayorga MD on 07/08/2022 4:13 PM PST Approved by: Nic Mayorga MD on 07/08/2022 4:13 PM PST Station ID: [id number]
== END 2022-07-08 08:06 | disposition home or self-care (01) ==
LOC: DI 08:05
PROVIDERS: ATTEND Physician Assistant
DX: M81.0 Age-related osteoporosis without current pathological fracture (principal); Z78.0 Asymptomatic menopausal state

== ENCOUNTER 2022-11-03 15:13 | Outpatient (CLI) | payer MEDICARE, OTHER ==
[2022-11-03 16:05] VITALS: BP 116/72
--- NOTE | 2022-11-03 16:05 | SLEEP CARE CONSULTATION ---
Information from patient questionnaire entered by Yulissa Junior. I have reviewed and concur with the information entered by Yulissa Junior. This document represents the service I personally performed and the decisions made by me, Mari Ochoa ARNP. History of Present Illness Service Date and Time: 11/03/2022 1513 Previous diagnosis: Mild, Obstructive Sleep Apnea-Hypopnea Syndrome AHI: 7.5 Reason for follow up: annual (LAST SEEN 01/2021) Accompanied by: Alvarez MEJÍA Equipment type: CPAP (SHEARER Dreamstation 2; SD CARD NEEDED FOR DOWNLOAD AND PRESSURE CHANGES) Equipment obtained from: [employer] (has not gotten supplies recently) Mask style: Nasal Mask brand: Respironics (Wisp) Backup mask available: Yes (old supplies) Prior sleep studies: Yes Year and Where: 2007 - [facility] Type of Sleep Study: Polysomnography HPI additional information: ANDREW SHAH was diagnosed to have mild, AHI 7.5, obstructive sleep apnea- hypopnea syndrome and returned today for CPAP therapy annual follow-up. Sleep Study - Results Type of Sleep Study: Polysomnography Prior sleep studies: Yes Year and Where: 2007 - [facility] CPAP Compliance Data - Data Reviewed with Patient Compliance rate %: 0 (no use in last 30 days) Current pressure setting (cmH2O): 8 Compliance data discussion: She has been using her old machine but it does not have any use logged in last 30 days. She received a Dreamstation 2 but has not started using it. I checked her machine and found the pressure setting to be accurate at 8 cmH2O. Subjective Missed days of use due to: reports: other (patient with memory issues and not remembering to put her mask on) Patient concerns: denies: aerophagia, mask discomfort, air blowing in eyes, mask leak noise, condensation in mask/hose, nasal congestion, dry mouth, nose, throat, epistaxis Current pressure setting perceived as: comfortable Initial [place] Sleepiness Scale score: 6 (in 2007) Current [place] Sleepiness Scale score: 7 (11/03/22) Allergies and Home Medications Known drug allergies: Yes (as listed) Drug allergies reviewed: Yes Home medication list reviewed: Yes (new med but unsure of name) Allergy and home medication list: Allergies beclomethasone dipropionate * [From Qvar] Allergy (Verified 11/02/22 16:02) Unknown ciprofloxacin [From Cipro] Allergy (Verified 11/02/22 16:02) Unknown ciprofloxacin HCl * [From Cipro] Allergy (Verified 11/02/22 16:02) Unknown metronidazole Allergy (Verified 11/02/22 16:02) Unknown Sulfa (Sulfonamide Antibiotics) Allergy (Verified 11/02/22 16:02) Unknown Review of Systems Review of systems same as previous: No (increased memory issues; neurologist following) Physical Exam Vital signs obtained and entered by: YULISSA Nair MA Blood Pressure: 116/72 (LEFT ARM) Cuff size: regular Heart Rate: 74 O2 Saturation: 94 Height: 5 ft 4 in Weight: 165 lb Body Mass Index: 28.3 BMI Classification: Overweight Impression and Plan 1. Obstructive Sleep Apnea-Hypopnea Syndrome, mild, with poor treatment compliance and unknown apnea control. She has been having memory issues and has not been using her CPAP. He brother, Alvarez, who has POA was here to assist her with her health appointments. She is following up with a neurologist for her memory issues. I advised patient to stop using her old device and start using the Dreamstation 2 and showed her how to put together and use it. She voiced understanding and her brother also stated he understood. She did not want to use the humidifier and this was turned off. Patient's apnea severity and rationale for treatment to reduce apnea, improve sleep quality and reduce cardiovascular and cerebrovascular events was reviewed. I also reviewed the benefit of consistent device use of CPAP for hypertension, COPD and fibromyalgia. 2. Overweight, unspecified. Currently patients BMI is 28.3. Obesity increases the risk of apnea, CPAP pressure requirements and overall health risks especially cardiovascular and diabetes. Thus patient is advised to lose weight. * Continue CPAP pressure at 8 cmH2O * Update supplies * Notify me if snoring with mask or feeling that the pressure is too much or too little * Attempt to lose weight * Call this office if any problems using CPAP * Return for follow up in 1-2 months, or sooner if concerns arise Counseling Topics: Weight loss health impact Visit Type: In Office Time Spent with Patient (minutes): 28 Provider Statement: I spent 100% of the Face to Face Visit with the patient with greater than 50% spent counseling the patient and coordination of care.
== END 2022-11-03 15:14 | disposition home or self-care (01) ==
LOC: SC 15:13
PROVIDERS: ATTEND Nurse Practitioner Family
DX: G47.33 Obstructive sleep apnea (adult) (pediatric) (principal); E66.3 Overweight; Z68.28 Body mass index [BMI] 28.0-28.9, adult
CPT/HCPCS: 99213; G0463; 99212

== ENCOUNTER 2023-01-25 15:07 | Outpatient (CLI) | payer MEDICARE, OTHER ==
--- NOTE | 2023-01-25 15:53 | SLEEP CARE CONSULTATION ---
Information from patient questionnaire entered by Rebekah Junior. I have reviewed and concur with the information entered by Rebekah Junior. This document represents the service I personally performed and the decisions made by me, Mari Ochoa ARNP. History of Present Illness Service Date and Time: 01/25/2023 1507 Previous diagnosis: Mild, Obstructive Sleep Apnea-Hypopnea Syndrome AHI: 7.5 Reason for follow up: other (2 MONTH F/U) Accompanied by: Brother Equipment type: CPAP ([employer] Dreamstation 2; SD CARD NEEDED FOR DOWNLOAD AND PRESSURE CHANGES) Equipment obtained from: [employer] (has not gotten supplies recently) Mask style: Nasal Mask brand: Respironics (Wisp) Backup mask available: No (will keep old mask when replaced) Prior sleep studies: Yes Year and Where: 2007 - [facility] Type of Sleep Study: Polysomnography HPI additional information: ANDREW SHAH was diagnosed to have mild, AHI 7.5, obstructive sleep apnea- hypopnea syndrome and returned today for CPAP therapy two months follow-up. Sleep Study - Results Type of Sleep Study: Polysomnography Prior sleep studies: Yes Year and Where: 2007 - [facility] CPAP Compliance Data - Data Reviewed with Patient Average duration of nightly device use: 5 hours 58 minutes Compliance rate %: 16.7 (15/60 days used) Average residual AHI: 2 Average large leak: 2 mins 16 secs Subjective Missed days of use due to: reports: other (just deciding not to put the mask on) Patient concerns: denies: aerophagia, mask discomfort, air blowing in eyes, mask leak noise, condensation in mask/hose, nasal congestion, dry mouth, nose, throat, epistaxis Observed to snore while using device: No Current pressure setting perceived as: comfortable On therapy, patient: reports: other (does not notice difference when using CPAP in her restfulness). denies: being more awake and alert during the day (not falling asleep during the day), drowsiness while driving Initial [place] Sleepiness Scale score: 6 (in 2007) Current [place] Sleepiness Scale score: 5 (01/25/23) Allergies and Home Medications Known drug allergies: Yes (as listed) Drug allergies reviewed: Yes Home medication list reviewed: Yes (no changes) Allergy and home medication list: Allergies beclomethasone dipropionate * [From Qvar] Allergy (Verified 01/24/23 16:31) Unknown ciprofloxacin [From Cipro] Allergy (Verified 01/24/23 16:31) Unknown ciprofloxacin HCl * [From Cipro] Allergy (Verified 01/24/23 16:31) Unknown metronidazole Allergy (Verified 01/24/23 16:31) Unknown Sulfa (Sulfonamide Antibiotics) Allergy (Verified 01/24/23 16:31) Unknown Review of Systems Review of systems same as previous: No (mild cognitive imparement) Physical Exam Vital signs obtained and entered by: REBEKAH Nair MA Blood Pressure: 120/60 (LEFT ARM) Cuff size: regular Heart Rate: 67 O2 Saturation: 93 Height: 5 ft 4 in Weight: 163 lb 12.8 oz Body Mass Index: 28.0 BMI Classification: Overweight Impression and Plan 1. Obstructive Sleep Apnea-Hypopnea Syndrome, mild, with poor treatment compliance and good apnea control. She is accompanied by her brother today. She states she has been having memory issues and he is here to help her. She has not been using her CPAP because she did not think she needed to because she was resting well. I advised her to try and use it every night for all sleep so we can bring up her compliance. She voiced agreement. I will have her come back in 1 month to recheck her compliance. She was also advised to reach out to [facility] for more supplies. Patient's apnea severity and rationale for treatment to reduce apnea, improve sleep quality and reduce cardiovascular and cerebrovascular events was reviewed. I also reviewed the benefit of consistent device use of CPAP for hypertension, COPD and fibromyalgia. 2. Overweight, unspecified. Currently patients BMI is 28. Obesity increases the risk of apnea, CPAP pressure requirements and overall health risks especially cardiovascular and diabetes. Thus patient is advised to lose weight. * Continue CPAP pressure at 8 cmH2O * Notify me if snoring with mask or feeling that the pressure is too much or too little * Attempt to lose weight * Call this office if any problems using CPAP * Return for follow up in 1 month, or sooner if concerns arise Counseling Topics: Spare mask, Weight loss health impact Visit Type: In Office Time Spent with Patient (minutes): 23 Provider Statement: I spent 100% of the Face to Face Visit with the patient with greater than 50% spent counseling the patient and coordination of care.
[2023-01-25 15:55] VITALS: BP 120/60
== END 2023-01-25 15:08 | disposition home or self-care (01) ==
LOC: SC 15:07
PROVIDERS: ATTEND Nurse Practitioner Family
DX: G47.33 Obstructive sleep apnea (adult) (pediatric) (principal)
CPT/HCPCS: 99213; G0463; 99212

== ENCOUNTER 2023-02-15 13:49 | Outpatient (CLI) | payer MEDICARE, OTHER ==
[2023-02-15 14:02] LABS: BASOPHILS % (AUTO) 0.5 %; EOSINOPHILS # (AUTO) 0.2 10^3/uL (0.0-0.7); HCT - HEMATOCRIT 45.7 % (37.0-47.0); HGB - HEMOGLOBIN 15.2 g/dL (12.0-16.0); LYMPHOCYTES # (AUTO) 1.7 10^3/uL (1.5-3.5); LYMPHOCYTES % (AUTO) 22.3 %; MEAN CORPUSCULAR HEMOGLOBIN 29.3 pg (27.0-31.0); MEAN CORPUSCULAR HGB CONC 33.3 g/dL (32.0-36.0); MEAN CORPUSCULAR VOLUME 88.2 fL (81.0-99.0); MEAN PLATELET VOLUME 10.7 fL (7.9-10.8); MONOCYTES # (AUTO) 0.5 10^3/uL (0.0-1.0); MONOCYTES % (AUTO) 7.2 %; NEUTROPHILS # (AUTO) 5.1 10^3/uL (1.5-6.6); NEUTROPHILS % (AUTO) 67.6 %; PLT - PLATELET COUNT 188 10^3/uL (130-450); RED BLOOD COUNT 5.18 10^6/uL (4.20-5.40); RED CELL DISTRIBUTION WIDTH 12.3 % (12.0-15.0); WHITE BLOOD COUNT 7.5 x10^3/uL (4.8-10.8)
[2023-02-15 14:18] LABS: ALBUMIN 4.4 g/dL (3.2-5.5); ALBUMIN/GLOBULIN RATIO 1.4 (1.0-2.2); ALKALINE PHOSPHATASE 68 IU/L (42-121); ALT ALANINE AMINOTRANSFERASE 16 IU/L (10-60); AST ASPARTATE AMINOTRANSFERASE 18 IU/L (10-42); BUN - BLOOD UREA NITROGEN 20 mg/dL (6-20); CALCIUM 8.7 mg/dL (8.5-10.3); CARBON DIOXIDE - CO2 27 mmol/L (21-32); CHLORIDE 107 mmol/L (101-111); CHOL/HDL RATIO 4.1 (<4.4); CHOLESTEROL 159 mg/dL; CREATININE 1.1 mg/dL (0.4-1.0); GFR - MDRD 49 (>89); GLUCOSE 103 mg/dL (70-100); HDL CHOLESTEROL 39 mg/dL; LDL CHOLESTEROL,CALCULATED 81 mg/dL; LDL/HDL RATIO 2.1 (<4.4); POTASSIUM 4.2 mmol/L (3.5-5.0); SODIUM 140 mmol/L (135-145); TOTAL PROTEIN 7.5 g/dL (6.7-8.2); TRIGLYCERIDES 193 mg/dL; VLDL CHOLESTEROL 39 mg/dL
[2023-02-15 14:30] LABS: THYROID STIMULATING HORMONE 1.13 uIU/mL (0.34-5.60)
== END 2023-02-15 13:50 | disposition home or self-care (01) ==
LOC: LAB 13:49
PROVIDERS: ATTEND Physician Assistant
DX: I10 Essential (primary) hypertension (principal); E78.5 Hyperlipidemia, unspecified; G31.84 Mild cognitive impairment of uncertain or unknown etiology; E03.9 Hypothyroidism, unspecified
CPT/HCPCS: 36415; 80053; 80061; 82607; 83721; 84443; 85025

== ENCOUNTER 2023-02-24 15:11 | Outpatient (CLI) | payer MEDICARE, OTHER ==
--- NOTE | 2023-02-24 15:30 | Sleep Patient Instructions ---
Sleep Center Visit Summary - Patient Visit Information Reason for Visit: One Month followup for PAP therapy - Patient Instructions Additional Instructions: You were here for follow up of CPAP therapy. You will be continued on CPAP therapy with pressure at 8 cmH2O. You should follow up with sleep care in 12 months. You may contact us sooner for any questions or concerns. - Clinic Information Contact: [facility] [address] [place] [address] [email or web address] T: [phone]
--- NOTE | 2023-02-24 15:37 | SLEEP CARE CONSULTATION ---
Information from patient questionnaire entered by Rebekah Junior. I have reviewed and concur with the information entered by Rebekah Junior. This document represents the service I personally performed and the decisions made by , Mari Ochoa ARNP. History of Present Illness Service Date and Time: 02/24/2023 1511 Previous diagnosis: Mild, Obstructive Sleep Apnea-Hypopnea Syndrome AHI: 7.5 Reason for follow up: one month (F/U) Accompanied by: Brother Equipment type: CPAP (SHEARER Dreamstation 2) Equipment obtained from: [employer] (needs to order) Mask style: Nasal Backup mask available: No (will keep old mask when replaced) Last cushion change: 2 months [facility] HPI additional information: ANDREW SHAH was diagnosed to have mild, AHI 7.5, obstructive sleep apnea- hypopnea syndrome and returned today with brother for CPAP therapy one month follow-up. Sleep Study - Results Type of Sleep Study: Polysomnography Prior sleep studies: Yes Year and Where: 2007 - [facility] CPAP Compliance Data - Data Reviewed with Patient Average duration of nightly device use: 6 HRS 37 mins Compliance rate %: 76.7 (01/22/23-02/20/23; 28/30 days used) Current pressure setting (cmH2O): 8 Average residual AHI: 2.5 Central apnea: 0.2 Obstructive apnea: 0.5 Hypopnea: 1.8 Average large leak: 2 mins 49 secs Subjective Patient concerns: denies: aerophagia, mask discomfort, air blowing in eyes, mask leak noise, condensation in mask/hose, nasal congestion, dry mouth, nose, throat, epistaxis Observed to snore while using device: No Current pressure setting perceived as: comfortable On therapy, patient: reports: other (has not noticed a difference). denies: drowsiness while driving Initial [place] Sleepiness Scale score: 6 (in 2007) Current [place] Sleepiness Scale score: 3 (02/24/23) Allergies and Home Medications Known drug allergies: Yes (as listed) Drug allergies reviewed: Yes Home medication list reviewed: Yes (Nebulizer for asthma) Allergy and home medication list: Allergies beclomethasone dipropionate * [From Qvar] Allergy (Verified 02/23/23 13:58) Unknown ciprofloxacin [From Cipro] Allergy (Verified 02/23/23 13:58) Unknown ciprofloxacin HCl * [From Cipro] Allergy (Verified 02/23/23 13:58) Unknown metronidazole Allergy (Verified 02/23/23 13:58) Unknown Sulfa (Sulfonamide Antibiotics) Allergy (Verified 02/23/23 13:58) Unknown Review of Systems Review of systems same as previous: No (Alzhiemer Dementia) Physical Exam Vital signs obtained and entered by: REBEKAH Nair MA Blood Pressure: 118/62 (LEFT ARM) Cuff size: regular Heart Rate: 67 O2 Saturation: 97 Height: 5 ft 4 in Weight: 164 lb Body Mass Index: 28.1 BMI Classification: Overweight Impression and Plan 1. Obstructive Sleep Apnea-Hypopnea Syndrome, mild, with good treatment compliance and good apnea control. Patient was recently diagnosed with Alzheimer/dementia and has memory issues. She is now remembering to put on her CPAP mask. Her brother attends her appointments with her and is to be her contact for appointments, etc. since she does not always remember when she answers the phone. Patient has significant improvement of their sleep apnea and is satisfied with current CPAP therapy. She does not feels a difference in her sleep quality or restfulness, but is tolerating the mask well. She is comfortable with using the CPAP now and her brother will help to monitor for any changes. We will followup with her next year. Patient's apnea severity and rationale for treatment to reduce apnea, improve sleep quality and reduce cardio vascular and cerebrovascular events was reviewed. I also reviewed the benefit of consistent device use of CPAP for hypertension, COPD and fibromyalgia. 2. Overweight, unspecified. Currently patients BMI is 28.1. Obesity increases the risk of apnea, CPAP pressure requirements and overall health risks especially cardiovascular and diabetes. Thus patient is advised to lose weight. * Continue CPAP pressure at 8 cmH2O * Notify me if snoring with mask or feeling that the pressure is too much or too little * Attempt to lose weight * Call this office if any problems using CPAP * Return for follow up in 1 year, or sooner if concerns arise Counseling Topics: Spare mask, Weight loss health impact Visit Type: In Office Time Spent with Patient (minutes): 20 Provider Statement: I spent 100% of the Face to Face Visit with the patient with greater than 50% spent counseling the patient and coordination of care.
[2023-02-24 15:42] VITALS: BP 118/62
== END 2023-02-24 15:12 | disposition home or self-care (01) ==
LOC: SC 15:11
PROVIDERS: ATTEND Nurse Practitioner Family
DX: G47.33 Obstructive sleep apnea (adult) (pediatric) (principal); E66.3 Overweight; Z68.28 Body mass index [BMI] 28.0-28.9, adult
CPT/HCPCS: 99213; G0463; 99212

== ENCOUNTER 2023-08-14 17:09 | Emergency (ER) | payer MEDICARE, OTHER ==
[2023-08-14 19:37] VITALS: BP 136/73; O2SAT 97
--- NOTE | 2023-08-14 19:43 | XRAY Report ---
PROCEDURE: Foot 3+V RT INDICATIONS: Trauma TECHNIQUE: 3 views of the foot were acquired. COMPARISON: None. FINDINGS: Bones: Minimally displaced fracture at the head of the third proximal phalanx. Soft tissues: No suspicious soft tissue calcifications or masses. IMPRESSION: Intra-articular fracture at the head of the third proximal phalanx. Reviewed by: Faheem Mo MD on 08/14/2023 7:42 PM PST Approved by: Faheem Mo MD on 08/14/2023 7:42 PM PST Station ID: [id number]
--- NOTE | 2023-08-14 20:11 | ED Physician Documentation ---
PD HPI LOWER EXT INJURY - Stated complaint Stated Complaint: RT FOOT INJ - Chief complaint Chief Complaint: Trauma Ext - History obtained from History obtained from: Patient - Additional information Additional information: 72-year-old female presents by private vehicle from home for right foot pain after striking her foot against a metal bedpost. She is concerned that she may have broken either part of her foot or one of her toes. Review of Systems Constitutional: denies: Fever, Chills Musculoskeletal: reports: Extremity pain, Extremity swelling. denies: Neck pain, Back pain, Joint pain PD PAST MEDICAL HISTORY - Past Medical History Past Medical History: Yes Cardiovascular: Hypertension, High cholesterol Respiratory: COPD, Emphysema, Sleep apnea, CPAP use Endocrine/Autoimmune: HyPOthyroidism GI: GERD : Incontinence, Kidney stones HEENT: None Psych: None Musculoskeletal: None Derm: None - Past Surgical History Past Surgical History: Yes General: Colonoscopy Ortho: Other - Present Medications Home Medications: Ambulatory Orders Medication Instructions Recorded Confirmed Ipratropium/Albuterol [Combivent 1 puffs INH QID 09/24/20 02/24/23 Respimat] Irbesartan/Hydrochlorothiazide 1 tab PO DAILY 09/24/20 02/24/23 [Avalide 300-12.5 mg Tablet] Atenolol [Tenormin] 50 mg PO BID 09/25/20 02/24/23 Atorvastatin [Lipitor] 20 mg PO DAILY 09/25/20 02/24/23 Levothyroxine [Synthroid] 88 mcg PO DAILY 09/25/20 02/24/23 Budesonide/Formoterol Fumarate See Rx Instructions .ROUTE .COMPLEX 11/03/22 02/24/23 [Symbicort 160-4.5 Mcg Inhaler] Donepezil [Aricept] See Rx Instructions .ROUTE .COMPLEX 11/03/22 02/24/23 Albuterol See Rx Instructions .ROUTE .COMPLEX 02/24/23 02/24/23 HYDROcod/ACETAM 5/325 [Greenwood 5/325] 1 - 2 tab PO Q6H PRN #10 tablet 08/14/23 - Allergies Allergies/Adverse Reactions: Allergies Allergy/AdvReac Type Severity Reaction Status Date / Time beclomethasone dipropionate * Allergy Unknown Verified 08/14/23 17:17 [From Qvar] ciprofloxacin [From Cipro] Allergy Unknown Verified 08/14/23 17:17 ciprofloxacin HCl * Allergy Unknown Verified 08/14/23 17:17 [From Cipro] metronidazole Allergy Unknown Verified 08/14/23 17:17 Sulfa (Sulfonamide Allergy Unknown Verified 08/14/23 17:17 Antibiotics) - Social History Does the pt smoke?: No Smoking Status: Never smoker Does the pt drink ETOH?: Yes Does the pt have substance abuse?: No - Immunizations Immunizations are current?: Yes - POLST Patient has POLST: No POLST Status: Full Code PD ED PE NORMAL - Vitals Vital signs reviewed: Yes - General General: Alert and oriented X 3, No acute distress, Well developed/nourished - Derm Derm: Normal color, Warm and dry, No rash - Extremities Extremities: No deformity, Normal ROM s pain, Other (tenderness over 3rd-5th distal metatarsal region. 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 She has a proximal third phalanx fracture. Placed in postop shoe, she states she already has an orthopedic surgeon and will call them for follow-up appointment. Short course pain medication sent to pharmacy, patient advised to keep foot elevated to help with swelling. She states that she already has a wheelchair at home that she can use to mobilize in if necessary Departure - Departure Disposition: 01 Home, Self Care Clinical Impression: Phalanx fracture, foot Qualifiers: Encounter type: initial encounter Toe: lesser toe Fracture type: closed Phalanx: proximal Fracture alignment: displaced Laterality: right Qualified Code(s): S92.511A - Displaced fracture of proximal phalanx of right lesser toe(s), initial encounter for closed fracture Condition: Stable Instructions: ED Fx Foot Prescriptions: HYDROcod/ACETAM 5/325 [Greenwood 5/325] 1 - 2 tab PO Q6H PRN #10 tablet PRN Reason: Pain Comments: Keep your foot elevated above heart level to help swelling. The pain medications can be taken, these have been sent to the [facility] in [place], however they may cause drowsiness and constipation. Follow up wtih your orthopedic surgeon Forms: PCP List Discharge Date/Time: 08/14/23 20:30
== END 2023-08-14 20:30 | disposition home or self-care (01) ==
LOC: ED 17:09
DX: S92.511A Displaced fracture of proximal phalanx of right lesser toe(s), initial encounter for closed fracture (principal); W22.8XXA Striking against or struck by other objects, initial encounter; I10 Essential (primary) hypertension
CPT/HCPCS: 99283

== ENCOUNTER 2023-09-08 14:31 | Outpatient (CLI) | payer MEDICARE, OTHER ==
--- NOTE | 2023-09-08 19:00 | CT Report ---
PROCEDURE: Lung Cancer Screen INDICATIONS: HISTORY OF SMOKING TECHNIQUE: A CT scan of the chest was performed. Intravenous contrast media was not administered. Images were re corded and evaluated at appropriate window settings. Reformats: axial MIP of the chest, coronal and s agittal. For radiation dose reduction, the following was used: automated exposure control, adjustment of mA and/or kV according to patient size. COMPARISON: 10/13/2016 FINDINGS: Image quality: Excellent. Lungs and pleura: No pleural effusions. No pneumothorax. No suspicious pulmonary nodules which requi re follow up. Moderate pulmonary emphysema with apical predominance 4.5 mm nodule in the right lower lobe image , new from prior Left apical pulmonary scarring or sequela from prior apical spiculated nodule which has resolved Mediastinum: Heart size is normal. No pericardial effusion. No large vessel abnormality. No mediastin al adenopathy by size criteria. Chest wall and lower neck: Thyroid is unremarkable. No axillary or supraclavicular adenopathy by size . Bones: No aggressive osseous abnormality. Upper Abdomen: Unremarkable. IMPRESSION: New 4.5 mm right lower lobe nodule Lung RAD: 3 - Probably Benign. Recommendation: 6 month interval follow-up CT Moderate pulmonary emphysema and resolved left upper lobe spiculated nodule Reviewed by: Hilario Silva MD on 09/08/2023 5:59 PM AKST Approved by: Hilario Silva MD on 09/08/2023 5:59 PM AKST Station ID: [id number]
== END 2023-09-08 14:32 | disposition home or self-care (01) ==
LOC: DI 14:31
PROVIDERS: ATTEND Physician Assistant
DX: Z12.2 Encounter for screening for malignant neoplasm of respiratory organs (principal); R91.1 Solitary pulmonary nodule; J43.9 Emphysema, unspecified; Z87.891 Personal history of nicotine dependence

== ENCOUNTER 2023-09-28 14:47 | Outpatient (CLI) | payer MEDICARE, OTHER ==
[2023-09-28] MEDS: ALBUTEROL 1 PUFF INH STA (16:48)
== END 2023-09-28 14:48 | disposition home or self-care (01) ==
LOC: RT 14:47
PROVIDERS: ATTEND Physician Assistant
DX: J44.9 Chronic obstructive pulmonary disease, unspecified (principal)
CPT/HCPCS: 94060; 94729

== ENCOUNTER 2024-04-18 09:25 | Outpatient (CLI) | payer MEDICARE, OTHER ==
[2024-04-18 09:54] LABS: BASOPHILS % (AUTO) 0.7 %; EOSINOPHILS # (AUTO) 0.1 10^3/uL (0.0-0.7); EOSINOPHILS % (AUTO) 2.1 %; HCT - HEMATOCRIT 41.7 % (37.0-47.0); HGB - HEMOGLOBIN 13.7 g/dL (12.0-16.0); LYMPHOCYTES # (AUTO) 1.3 10^3/uL (1.5-3.5); LYMPHOCYTES % (AUTO) 24.1 %; MEAN CORPUSCULAR HEMOGLOBIN 29.3 pg (27.0-31.0); MEAN CORPUSCULAR HGB CONC 32.9 g/dL (32.0-36.0); MEAN CORPUSCULAR VOLUME 89.3 fL (81.0-99.0); MEAN PLATELET VOLUME 10.9 fL (7.9-10.8); MONOCYTES # (AUTO) 0.4 10^3/uL (0.0-1.0); MONOCYTES % (AUTO) 7.5 %; NEUTROPHILS # (AUTO) 3.5 10^3/uL (1.5-6.6); PLT - PLATELET COUNT 179 10^3/uL (130-450); RED BLOOD COUNT 4.67 10^6/uL (4.20-5.40); RED CELL DISTRIBUTION WIDTH 12.6 % (12.0-15.0); WHITE BLOOD COUNT 5.4 x10^3/uL (4.8-10.8)
[2024-04-18 10:13] LABS: ALBUMIN 3.9 g/dL (3.2-5.5); ALBUMIN/GLOBULIN RATIO 1.7 (1.0-2.2); ALKALINE PHOSPHATASE 77 IU/L (42-121); ALT ALANINE AMINOTRANSFERASE 17 IU/L (10-60); AST ASPARTATE AMINOTRANSFERASE 17 IU/L (10-42); BILIRUBIN,TOTAL 0.4 mg/dL (0.2-1.0); BUN - BLOOD UREA NITROGEN 18 mg/dL (6-20); CARBON DIOXIDE - CO2 26 mmol/L (21-32); CHLORIDE 104 mmol/L (101-111); CHOL/HDL RATIO 4.1 (<4.4); CHOLESTEROL 178 mg/dL; CREATININE 0.8 mg/dL (0.6-1.3); GFR - MDRD 70 (>89); GLUCOSE 104 mg/dL (74-104); HDL CHOLESTEROL 43 mg/dL; LDL CHOLESTEROL,CALCULATED 113 mg/dL; LDL/HDL RATIO 2.6 (<4.4); POTASSIUM 3.5 mmol/L (3.5-4.5); SODIUM 138 mmol/L (135-145); TOTAL PROTEIN 6.2 g/dL (6.4-8.9); TRIGLYCERIDES 109 mg/dL; VLDL CHOLESTEROL 22 mg/dL
[2024-04-18 10:27] LABS: THYROID STIMULATING HORMONE 1.62 uIU/mL (0.34-5.60)
[2024-04-18 12:02] LABS: ESTIMATED AVERAGE GLUCOSE 103 mg/dL (70-100); HEMOGLOBIN A1c% 5.2 % (4.27-6.07)
== END 2024-04-18 09:26 | disposition home or self-care (01) ==
LOC: LAB 09:25
PROVIDERS: ATTEND Physician Assistant
DX: I10 Essential (primary) hypertension (principal); R73.01 Impaired fasting glucose; E78.5 Hyperlipidemia, unspecified; R53.83 Other fatigue
CPT/HCPCS: 36415; 80053; 80061; 82607; 83036; 83721; 84443; 85025